=== PATIENT | female | born 1995 | race Caucasian/White ===

== ENCOUNTER 2023-12-02 15:19 | Emergency (ER) | payer OTHER, SELFPAY ==
[2023-12-02 15:20] VITALS: BP 173/93; PULSE 101; RESP 16; TEMP 36.1; O2SAT 97; BMI 45.4
--- NOTE | 2023-12-02 15:39 | EDS_ITS ---
HPI HPI - GI History of Present Illness Chief Complaint: GI Bleed Informant: patient Narrative Narrative: 27-year-old female presenting to the emergency room with a chief complaint of bright red blood per rectum. Patient states a few hours ago she had a bowel movement as she wiped she noted there was some bright red blood on the tissue. This does not alarm her as that over the past couple years since giving to her child this is happening intermittently. Just prior to coming to the emergency department the patient developed a sharp stabbing rectal pain and noted that she was bleeding again. This is what prompted her to come to emergency. She notes that she is started hydroxyzine within the past 2 weeks but no other medication changes. She has had a prior appendectomy. [facility] Medical History (Updated 12/02/23 @ 15:[address] Chilo Meléndez DO) Anxiety Bipolar disorder Home Medications ?Medication ?Instructions ?Recorded ?Last Taken ?Type hydroxyzine HCl 25 mg tablet 25 mg PO BID 12/02/23 Unknown History lamotrigine 25 mg tablet 50 mg PO DAILY 12/02/23 Unknown History sertraline 100 mg tablet 150 mg PO Q24H 12/02/23 Unknown History Allergy/AdvReac Type Severity Reaction Status Date / Time cinnamon Allergy Mild Anaphylaxis Verified 12/02/23 15:22 nickel Allergy Mild Rash Verified 12/02/23 15:22 acetaminophen (From [place]) AdvReac Mild Vomiting Verified 12/02/23 15:22 hydrocodone (From [place]) AdvReac Mild Vomiting Verified 12/02/23 15:22 Social History Smoking Status: Never smoker ROS ROS ED Constitutional Constitutional ED: Denies chills, fever(s) or weight loss Eyes Eyes: Denies change in vision or diplopia ENT ENT ED: Denies ear pain, rhinorrhea or sore throat Cardiovascular Cardiovascular: Denies chest pain, orthopnea, palpitations or racing heartbeat Respiratory/Chest Respiratory/Chest: Denies cough, dyspnea or orthopnea Gastrointestinal Gastrointestinal: Reports other Details: Acute rectal pain bright red blood per rectum ; Denies abdominal pain, constipation, diarrhea, melena, nausea or vomiting Genitourinary Genitourinary ED: Denies dysuria, hematuria or urinary frequency Musculoskeletal Musculoskeletal: Denies arthralgias or myalgias Integumentary Denies abscess or rash Neurologic Neurologic: Denies headache(s) or weakness Psychiatric Psychiatric: Denies anxiety, depression, suicidal ideation or suicidal thoughts Endocrine Endocrinology: Denies polydipsia, polyphagia or polyuria Allergic/Immunologic Allergic/Immunologic ED: Denies mouth swelling, tongue swelling or urticaria EXAM Physical Exam Const Vital Signs: 12/02/23 15:20 Temperature 97 F L Temperature Source Temporal Pulse Rate 101 H Respiratory Rate 16 Blood Pressure 173/93 H Blood Pressure Mean 119 Pulse Ox 97 Oxygen Delivery Method Room Air Positive well nourished, well developed and obese General Appearance ED: well developed and NAD Nutritional Appearance: obese HEENT Reports normocephalic, head/scalp atraumatic and moist mucous membranes Eyes PERRL and EOMs intact bilaterally Neck no lymphadenopathy, supple and no JVD Resp normal respiratory effort and clear to auscultation bilaterally Cardio regular rate, regular rhythm and no murmurs GI normal to inspection, nondistended, normoactive bowel sounds and non-tender Palpation: soft Narrative: Rectal exam reveals a minimally distended vein in about the 7 o'clock position of the anus. Just to the side of this vein is in. Anal fissure with mild active bleeding. I do not appreciate any abscesses. No thrombosed hemorrhoids. No significant anal tags. Back/Spine no CVA tenderness and normal ROM Extremity normal to inspection General Extremety ED: Negative for edema General Extremity: Negative for edema Neuro oriented x3 and CN's II-XII intact bilaterally Sensorium / Orientation: alert Motor Exam: strength 5/5 throughout Psych mental status grossly normal Mood & Affect: Negative for depressed or tearful Skin no rashes or lesions noted and no wounds MDM MDM MDM Narrative Medical decision making narrative: Differential diagnosis includes but not limited to internal/external hemorrhoids anal fissure abscess colitis diverticulitis diverticular disease Based on the physical exam patient appears to have an anal fissure. Home care and pathophysiology discussed with the patient. She notes understanding the plan will follow-up as needed return if worsening or concerns History & Record Review Discussion w/independent historian: Patient Discharge Plan Triage Chief Complaint: GI Bleed ED Provider: Chilo Meléndez Dx/Rx/DC Orders Prescriptions: No Action lamotrigine 25 mg tablet 50 mg PO DAILY Rx Instructions: 50mg in AM; 25mg in evening sertraline 100 mg tablet 150 mg PO Q24H hydroxyzine HCl 25 mg tablet 25 mg PO BID Print Language: Pashto
[2023-12-02 15:52] VITALS: BP 140/79; PULSE 88; RESP 18; TEMP 36.4; O2SAT 99
== END 2023-12-02 16:08 | disposition home or self-care (01) ==
LOC: ED 16:07
PROVIDERS: Emergency Provider Emergency Medicine; Referring Provider Emergency Medicine; Visit Provider Emergency Medicine
DX: K60.0 Acute anal fissure (principal)
CPT/HCPCS: 99282

== ENCOUNTER → 2024-02-07 | Outpatient (CLI) | payer OTHER, SELFPAY ==
--- NOTE | 2024-02-07 09:27 | RAD_ITS ---
STUDY: X-RAY CHEST REASON FOR EXAM: Female, 28 years old. Cough TECHNIQUE: PA and lateral views of the chest. COMPARISON: None. FINDINGS: Scattered calcified granulomas. There is no demonstrated pleural abnormality. Normal size heart. Normal mediastinum and celine. Normal visualized pulmonary arteries. Normal visualized aortic arch and descending thoracic aorta. Normal visualized thoracic spine. Normal visualized ribs, clavicles, and shoulders. There is no demonstrated abnormality of the visualized soft tissue structures of the upper abdomen. RAD/Chest PA and Lateral IMPRESSION: Normal x-ray examination of the chest. Electronically Signed: Adriano Hassan MD at 10:12 [facility] ,
== END | disposition home or self-care (01) ==
PROVIDERS: Referring Provider Physician Assistant; Visit Provider Physician Assistant
DX: R05.9 Cough, unspecified (principal)
CPT/HCPCS: 71046

== ENCOUNTER → 2024-09-13 | Outpatient (CLI) | payer OTHER, SELFPAY ==
--- OUTSIDE RECORDS SUMMARY | 2024-09-13 07:13 | XMS RPT_ITS | CCD ---
Author Organization [facility] Team Providers Care Sole Layer Name Role Phone LACI MEANS, DR SANCHO Worley Consulting Unavail able LACI MEANS, DR~[phone] SANCHO Worley Primary Care Unavailable WOOD DO~[id number], WOOD JESUS A Admitting Unavailable WOOD DO~[id number], WOOD JESUS A Attending Unavailable LACI MENAS, DR SANCHO Worley Consulting Unavail able KENNEDY MEANS, GEMMA Costa Consulting Unavailable KENNEDY MEANS, GEMMA Costa Consulting Unavailable WOOD DO, JESUS A Consulting Unavailable WOOD DO, JESUS A Consulting Unavailable VIRGINIE MEANS DR~[phone] DAGOBERTO Costa Admitting Unavailable VIRGINIE MEANS, ~[phone] DAGOBERTO Costa Attending Unavailable LACI MEANS, DR SANCHO Worley Consulting Unavail himanshu AGUERO MD, DR~[phone] SANCHO Worley Primary Care Unavailable LACI MEANS, DR SANCHO Worley Consulting Unavail able LACI MEANS, DR~[phone] SANCHO Worley Primary Care Unavailable TAMIKA DO~[id number], TAMIKA SOTERO N Admitting Unavailable TAMIKA DO~[id number], TAMIKA SOTERO N Attending Unavailable NONE, NONE Consulting Unavailable DECLINED, Consulting Unavailable TAMIKA DO, SOTERO N Consulting Unavailable TAMIKA DO, SOTERO N Consulting Unavailable LACI MEANS, DR~[phone] SANCHO Worley Primary Care Unavailable TAMIKA DO~[id number], TAMIKA SOTERO N Admitting Unavailable TAMIKA DO~[id number], TAMIKA SOTERO N Attending Unavailable NONE, NONE Consulting Unavailable DECLINED, Consulting Unavailable TAMIKA DO, SOTERO N Consulting Unavailable TAMIKA DO, SOTERO N Consulting Unavailable LACI MEANS, DR SANCHO Worley Admitting Unavail himanshu AGUERO MD, DR SANCHO Worley Primary Care Unavail himanshu AGUERO MD, DR SANCHO Worley Consulting Unavail himanshu AGUERO MD, DR SANCHO Worley Attending Unavail able LACI MEANS, DR SANCHO Worley Consulting Unavail able No, Physician Primary Care Provider Unavailabl e NO, PHYSICIAN Primary Care Unavailable DELMY DOE Attending Unavailable Care Physician, No Primary Primary Care Unava ilable Adrian Woods Attending Unavailable Care Physician, No Primary Primary Care Unava ilable Care Physician, No Primary Referring Unava ilable Narendra Judge Attending Unavailable Care Physician, No Primary Primary Care Unava ilable Care Physician, No Primary Referring Unava ilable Narendra Judge Attending Unavailable Narendra Judge Referring Unavailable Care Physician, No Primary Primary Care Unava ilable Chilo Meléndez Attending Unavailable Chilo Meléndez Referring Unavailable Care Physician, No Primary Primary Care Unava ilable Care Physician, No Primary Primary Care Unava ilable Provider, Ed Physician Attending Unavailab Yahaira Aviles Attending Unavailable Care Physician, No Primary Referring Unava ilable Care Physician, No Primary Primary Care Unava ilable Care Physician, No Primary Primary Care Unava ilable Care Physician, No Primary Primary Care Provider Unavailable Care Physician, No Primary Referring Provider Un available Dulce MEANS, Dr. Syed Attending Provider Allergies Allergy Classification Reported Allergen(s) Allergy Type Date of Onset Reaction(s) Facility (1 source) Acetaminophen / HYDROcodone Drug Allergy [facility] Repository (4 sources) Cinnamon Preparation; Translations: [Cinnamon] Drug Allergy 02-07-2024 Anaphylaxis [facility] Repository (1 source) Leucine Drug Allergy [facility] Repository (2 sources) Acetaminophen Drug Allergy 02-07-2024 Vomiting [facility] (2 sources) HYDROcodone Drug Allergy 02-07-2024 Vomiting [facility] (2 sources) nickel Drug Allergy 02-07-2024 Rash [facility] (1 source) Acetaminophen Drug Allergy 02-07-2024 [facility] Repository (1 source) HYDROcodone Drug Allergy 02-07-2024 [facility] Repository (1 source) nickel Drug Allergy 02-07-2024 [facility] Repository Medications Current Medications Medication Drug Class(es) Dates Sig (Normalized) Sig (Original) amoxicillin 875 mg / clavulanate 125 mg oral tablet (6 sources) Penicillin-class Antibacterial Start: 02-07-2024 amoxicillin-clavu lanate (AUGMENTIN) 875-125 mg per tablet 02/07/2024 Active Start: 02-07-2024 End: 09-08-2024 Amoxicillin-Pot Clavulanate 875-125 mg tablet Discontinued 1 {tbl} PO TWICE A DAY February 07, 2024 1:00am September 08, 2024 1:04pm ascorbic acid 1000 mg oral tablet (4 sources) Vitamin C take 1 tablet by mouth once daily ascorbic acid, vitamin C, (VITAMIN C) 1000 MG tablet Take 1 (one) tablet (1,000 mg total) by mouth daily . Active azithromycin 250 mg oral tablet (7 sources) Macrolide Antimicrobial Start: 02-16-20 End: 02-16-20 azithromycin (Zithromax Z-Finn) 250 MG tablet Indications: Bronchitis Take as directed: 2 pills first day; then one pill daily for 4 days. . 6 tablet 02/16/2024 Active breath-actuated 120 actuat beclomethasone dipropionate 0.04 mg/actuat metered dose inhaler (4 sources) Corticosteroid Start: 01-31-20 Qvar RediHaler 40 mcg/actuation HFAB 01/31/2024 Active hydrOXYzine hydrochloride 25 mg oral tablet (7 sources) Antihistamine Start: 11-11-19 End: 09-13-19 take 1 tablet by mouth twice daily as needed Hydroxyzine Hcl 25 mg tablet Active 25 mg PO TWICE A DAY as needed September 12, 2024 8:27am lamoTRIgine 25 mg oral tablet (6 sources) Mood Stabilizer, Anti-epileptic Agent Start: 12-02-19 take 2 tablets by mouth once daily in the morning Lamotrigine 25 mg tablet Active 50 mg PO DAILY December 02, 2023 12:00am 50mg in AM; 25mg in evening Start: 11-11-2023 take 1 tablet by rachna th twice daily lamoTRIgine (LAMICTAL) 25 MG tablet Take 1 (one) tablet (25 mg total) by mouth 2 (two) times a day . 11/11/2023 Active levonorgestrel 0.682514 mg/hr intrauterine system (4 sources) Progestin, Progestin-containing Intrauterine Device levonorgestreL (SKYL A) IUD iud by Intrauterine route . Active sertraline 100 mg oral tablet (6 sources) Serotonin Reuptake Inhibitor Start: Sertraline 100 mg tablet Active 150 mg PO Q24H December 02, 2023 12:00am Start: 11-11-2023 sertraline (ZO LOFT) 100 MG tablet 11/11/2023 Active Completed/Discontinued Medications Medication Drug Class(es) Dates Sig (Normalized) Sig (Original) predniSONE 10 mg oral tablet (14 sources) Start: 02-16-2024 End: 02-16-2024 predniSONE (DELTASONE) tablet 40 mg Start: 02-16-2024 End: 02-16-2024 take 40 mg by mouth once 40 mg, Oral, Once, On Wed at 2115, For 1 dose Start: 02-16-2024 End: 02-16-2024 predniSONE (DELTASONE) table t 40 mg Start: 02-16-2024 End: 02-16-2024 predniSONE (DELTASONE) table t 40 mg Start: 02-16-2024 End: 02-16-2024 take 40 mg by mouth once 40 mg, Oral, Once, On Wed at 2115, For 1 dose Start: 02-16-2024 End: 02-16-2024 take 40 mg by mouth once 40 mg, Oral, Once, On Wed at 2115, For 1 dose Start: 02-16-2024 End: 02-21-2024 take 2 tablets by mouth once daily predniSONE (DELTASONE) 20 MG tablet Indications: Bronchitis Take 2 (two) tablets (40 mg total) by mouth daily for 5 days . 10 tablet 02/16/2024 02/21/2024 Active Start: 01-31-2024 predniSONE (DE LTASONE) 20 MG tablet 01/31/2024 Active Problems Active Problems Problem Classification Problem Date Documented Da te Episodic/Chronic Anal and rectal conditions (2 sources) Acute anal fissure; Translations: [Acute anal fissure] 12-10-2023 Episodic Asthma (2 sources) Asthma; Translations: [Unspecified asthma, uncomplicated] 02-07-2024 Chronic Chronic obstructive pulmonary disease and bronchiectasis (6 sources) Bronchitis; Translations: [Bronchitis, not specified as acute or chronic] Onset: 02-16-2024 Episodic Gastrointestinal hemorrhage (3 sources) Gastrointestinal hemorrhage; Translations: [Hemorrhage of anus and rectum] Onset: 4 12-10-2023 Episodic Other endocrine disorders (2 sources) Polycystic ovary syndrome; Translations: [Polycystic ovarian syndrome] 09-12-2024 Chronic Other female genital disorders (2 sources) Abnormal uterine bleeding; Translations: [Abnormal uterine and vaginal bleeding, unspecified] 09-12-2024 Chronic Other nutritional; endocrine; and metabolic disorders (2 sources) Obesity; Translations: [Other obesity] 09-12-2024 Chronic Other upper respiratory infections (6 sources) Nasopharyngitis; Translations: [Acute nasopharyngitis [common cold]] Onset: 4 02-16-2024 Episodic Otitis media and related conditions (6 sources) Dysfunction of eustachian tube; Translations: [Unspecified Eustachian tube disorder, unspecified ear] Onset: 4 02-16-2024 Episodic Thyroid disorders (5 sources) Nontoxic single thyroid nodule; Translations: [Goiter] Onset: 4 Chronic Unclassified (1 source) Cough, unspecified; Translations: [Cough, unspecified] Onset: 4 Past or Other Problems Problem Classification Problem Date Documented Da te Episodic/Chronic Administrative/social admission (3 sources) Encounter for examination for insurance purposes; Translations: [ENCOUNTER EXAM INSURANCE PURPOSES] Onset: 01-16-2023 Episodic E Codes: Machinery (1 source) Contact with other specified machinery, initial encounter; Translations: [CONTACT OTH SPEC MACHINERY INITIAL] Onset: 05-14-2023 Episodic E Codes: Place of occurrence (1 source) Other place in hospital as the place of occurrence of the external cause; Translations: [OTH PLACE HOSP PLACE OCCUR EXT CAUS] Onset: 07-14-2023 Episodic E Codes: Struck by; against (1 source) Striking against other stationary object, initial encounter; Translations: [STRIK AGNST OT STATIONARY OBJ INIT] Onset: 07-14-2023 Episodic E Codes: Unspecified (1 source) Civilian activity done for income or pay; Translations: [CIVILIAN ACTV DONE FOR INCOME/PAY] Onset: 07-14-2023 Episodic Intracranial injury (3 sources) Concussion without loss of consciousness, initial encounter; Translations: [CONCUSSION WITHOUT LOC INITIAL ENC] Onset: 07-13-2023 Episodic Other injuries and conditions due to external causes (1 source) Unspecified injury of head, initial encounter; Translations: [UNSPECIFIED INJURY HEAD INITIAL ENC] Onset: 07-14-2023 Episodic Sprains and strains (3 sources) Sprain of unspecified ligament of right ankle, initial encounter; Translations: [SPRAIN UNS LIGAMENT RT ANKLE INIT] Onset: 05-13-2023 Episodic Superficial injury; contusion (1 source) Contusion of right foot, initial encounter; Translations: [CONTUSION RIGHT FOOT INITIAL ENC] Onset: 05-14-2023 Episodic Results Test Name Value Interpretation Reference Range Facil ity Office Visit Reporton 2023 Office Visit Report [facility] [address] [place] [address] OFFICE VISIT Date of Service: 02/07/24 MR#: [id number] Acct: [id number] Patient: GUS WRIGHT Rep #: [id number] : 1995 Provider: ENEDELIA Perez Age/Sex: 28/F Location: [facility] Status: Signed Employer Purchased Covid Test Note: Patient here today for Covid Testing, requested by their Employer. Assessment and Plan Assessment and Plan Orders: Orders POC Cepheid Covid, ЕленаAB, RSV 02/07/24 02/24/24 0642 Date Adrian Amayaign Signature: Date (if applicable) CC: Normal [facility] HIV - WCHon 02-21-2024 HIV Non-Reactive Normal Nonreactive [facility] Comment on above: Order Comment: Has p t arrived? Y Reason for Exam: ED Expose Person Protocol Performed By: #### L 3890.6300, L3890.6100, L3890.6005, L3890.6200 #### [facility] [address] [place], [place], [id number] Hepatitis B Surface Antibody on 02-21-2024 HEP B Surf Ab Reactive Normal [facility] Comment on above: Order Comment: Has p t arrived? Y Reason for Exam: ED Expose Person Protocol Result Comment: Non Reactive: Inconsistent with immunity less than <10 mIU/mL Reactive: Consistent with immunity greater than or equal to 10 mIU/mL Performed By: #### L 3890.6300, L3890.6100, L3890.6005, L3890.6200 #### [facility] [address] [place], [place], [id number] Hepatitis B Surface Antigeno n 02-21-2024 HEP B Surf Ag Non-Reactive Normal Nonreactive [facility] Comment on above: Order Comment: Has p t arrived? Y Reason for Exam: ED Expose Person Protocol Performed By: #### L 3890.6300, L3890.6100, L3890.6005, L3890.6200 #### [facility] [address] [place], [address] Hepatitis C Antibodyon 02-20 Hepatitis C AB Non-Reactive Normal Nonreactive [facility] Comment on above: Order Comment: Has p t arrived? Y Reason for Exam: ED Expose Person Protocol Result Comment: Non Reactive: < 0.8 Equivocal: >/= 0.8 to < 1.0 Reactive: >/= 1.0 The CDC requires that a reactive/equivocal HCV antibody result be sent out for confirmation. HCV Quant by PCR testing. Performed By: #### L 3890.6300, L3890.6100, L3890.6005, L3890.6200 #### [facility] [address] [facility] [place], [place], [phone] ([phone] Chest PA and Lateralon 02-06 Chest PA and Lateral [facility] [address] [place] [address] Chest PA and Lateral MR#: [id number] Acct: [id number] Name: GUS WRIGHT #: [id number] : 1995 F 28 From: Adriano jauregui MD PCP: Care Physician,No Primary Status: REG CLI Study: Chest PA and Lateral Date of Exam: 02/07/24 Exam# [id number] Ordering Dr: Narendra Crouch [id number] STUDY: X-RAY CHEST REASON FOR EXAM: Female, 28 years old. Cough TECHNIQUE: PA and lateral views of the chest. COMPARISON: None. FINDINGS: Scattered calcified granulomas. There is no demonstrated pleural abnormality. Normal size heart. Normal mediastinum and celine. Normal visualized pulmonary arteries. Normal visualized aortic arch and descending thoracic aorta. Normal visualized thoracic spine. Normal visualized ribs, clavicles, and shoulders. There is no demonstrated abnormality of the visualized soft tissue structures of the upper abdomen. RAD/Chest PA and Lateral IMPRESSION: Normal x-ray examination of the chest. Electronically Signed: Adriano Hassan MD at 10:12 EST Reading Location ID and State: [facility] / [place] , Service support , CC: No Primary Care Physician; ENEDELIA Gratn Claim Clerk: Signed [facility] Office Visit Reporton 2023 Office Visit Report [facility] [address] [place] [address] OFFICE VISIT Date of Service: 02/07/24 MR#: [id number] Acct: [id number] Patient: GUS WRIGHT Rep #: [id number] : 1995 Provider: ENEDELIA Perez Age/Sex: 28/F Location: [facility] Status: Signed Employer Purchased Covid Test Note: Patient here today for Covid Testing, requested by their Employer. Assessment and Plan Assessment and Plan Orders: Orders POC Cepheid Covid, FluAB, RSV Today 02/10/24 0731 Date Adrian Campbell Signature: Date (if applicable) CC: Normal [facility] Urgent Care Visit Reporton 1 04-08-2023 Urgent Care Visit Report [facility] [address], [address] [place] [address] OFFICE VISIT Date of Service: 02/07/24 MR#: [id number] Acct: [id number] Name: GUS WRIGHT Rep #: [id number] : 1995 Provider: ENEDELIA Grant Age/Sex: 28/F Location: [facility] Status: Signed Intake Vital Signs 12/02/23 15:20 Height 5 ft 2 in Intake Visit Reasons: CHEST KASSI/SINUS COMPLAIN/ST/R EAR PAIN/COUGH Chief Complaint: chest congest, ST, cough, ear pain, yellow mucus Allergies cinnamon Allergy (Mild, Verified 02/07/24 09:30) Anaphylaxis nickel Allergy (Mild, Verified 02/07/24 09:30) Rash acetaminophen (From [place]) Adverse Reaction (Mild, Verified 02/07/24 09:30) Vomiting hydrocodone (From [place]) Adverse Reaction (Mild, Verified 02/07/24 09:30) Vomiting [facility] Medical History (Updated 02/07/24 @ 09:32 by Mehreen Chavez) Asthma Anxiety Bipolar disorder Surgical History (Updated 02/07/24 @ 09:32 by Mehreen Chavez) History of appendectomy Family History (Updated 02/07/24 @ 09:32 by Mehreen Chavez) Other Atrial fibrillation CVA (cerebral vascular accident) Hypertension Social History (Updated 02/07/24 @ 09:32 by Mehreen Chavez) Smoking Status: Never smoker alcohol intake: never substance use type: does not use HPI HPI Chief Complaint: chest congest, ST, cough, ear pain, yellow mucus Details: GUS WRGIHT is a 28 F who presents to the office today for initial evaluation at the [facility] for approximately 3-week history of sinus congestion, irritated/sore throat with purulent yellow postnasal drip, cough, and nausea. No complaints of chest pressure or shortness of breath or dyspnea on exertion. No complaints of fever, chills, sweats. No [id number] products taken to assist. Requesting POC Cepheid screening as well as chest x-ray as she is concerned for pneumonia. Non-smoker. No other associated symptoms and no other alleviating/aggravati ng factors. ROS Const Constitutional: No other (As above) Exam Const General: cooperative, healthy appearing and no acute distress Orientation: alert, awake and oriented x3 HENMT Head: normal to inspection Ears: hearing grossly normal bilaterally, external ears normal, TM's normal bilaterally and EAC's normal Nose: external nose normal, nares normal, septum normal and no nasal discharge Face and sinus: normal facial exam, sinuses nontender bilateral maxillary sinuses full to palpation, and face symmetric Mouth: oral mucosae normal, lip normal, tongue normal and oropharynx normal Throat: posterior oropharynx normal, tonsils normal, uvula midline and purulent postnasal drainage Eyes General: appearance normal, both eyes and all related structures Neck Neck: normal visual inspection, full ROM, no lymphadenopathy, no meningeal signs and supple Neck mass: No Thyroid: thyroid normal Lymphatic: no lymphadenopathy noted Chest Chest palpation inspection: normal inspection of the chest Resp Effort Inspection: normal respiratory effort, able to speak in complete sentences and cough Quality of cough: wet (nonproductive in office today) Auscultation: Bilateral: Clear to Auscultation Cardio Palpation: normal PMI Rate: tachycardic Rhythm: regular rhythm Heart Sounds: S1 normal, S2 normal, no gallops, no murmurs and no rubs Pulses: radial pulses present Skin General: no rashes or lesions noted Neuro General: patient alert, patient awake and patient oriented x3 Cognition: normal cognition Speech: speech normal Psych Appearance: grossly normal Mental Status: mental status grossly normal Mood: congruent mood Affect: normal affect Speech and Movement: speech and movement normal Attitude: cooperative Diagnoses Contact with or exposure to other viral diseases Z20.828 Acute sinusitis, unspecified J01.90 Assessment and Plan Assessment and Plan (1) Contact with or exposure to other viral diseases: Status: Acute (2) Acute sinusitis, unspecified: Status: Acute Plan: PA and lateral chest x-ray reviewed with patient in office today, with radiologist interpretation pending at time patient discharge. See POC results. Augmentin as prescribed today. Supportive measures as instructed today. Follow-up with PCP in 3-5 days should symptoms not improve, ED sooner should symptoms worsen or any other concerns develop. Pt states acknowledging understanding all the above. Results POC CEPH COV,FluAB,RSV PCR CEPHEID COVID PCR Not DETECTED Last Edit by ENEDELIA Chisholm on 02/07/24 10:00 CEPHEID FLU AB PCR NOT DETECTED FLU A B Last Edit by ENEDELIA Chisholm on 02/07/24 10:00 CEPHEID RSV PCR NOT DETECTED Last Edit by ENEDELIA Chisholm on 02/07/24 10:00 Coding Level of Care Code Off vis,new,level 4 Assessment and Plan Assessment and Plan (more content not included)... [facility] Emergency Department Summary on 12-02-2023 Emergency Department Summary [facility] Medical Records Department [address] [place] [address] Emergency Department Summary 12/02/23 MR#: [id number] Acct: [id number] Name: GUS WRIGHT Jani Rep #: [id number] : 1995 27 From: Chilo Meléndez DO PCP: Care Physician,No Primary Status:DEP ER Location: ED HPI HPI - GI History of Present Illness Chief Complaint: GI Bleed Informant: patient Narrative Narrative: 27-year-old female presenting to the emergency room with a chief complaint of bright red blood per rectum. Patient states a few hours ago she had a bowel movement as she wiped she noted there was some bright red blood on the tissue. This does not alarm her as that over the past couple years since giving to her child this is happening intermittently. Just prior to coming to the emergency department the patient developed a sharp stabbing rectal pain and noted that she was bleeding again. This is what prompted her to come to emergency. She notes that she is started hydroxyzine within the past 2 weeks but no other medication changes. She has had a prior appendectomy. [facility] Medical History (Updated 12/02/23 @ 15:[address] Chilo Meléndez DO) Anxiety Bipolar disorder Home Medications ???Medication ???Instructions ???Recorded ???Last Taken ???Type hydroxyzine HCl 25 mg tablet 25 mg PO BID 12/02/23 Unknown History lamotrigine 25 mg tablet 50 mg PO DAILY 12/02/23 Unknown History sertraline 100 mg tablet 150 mg PO Q24H 12/02/23 Unknown History Allergy/AdvReac Type Severity Reaction Status Date / Time cinnamon Allergy Mild Anaphylaxis Verified 12/02/23 15:22 nickel Allergy Mild Rash Verified 12/02/23 15:22 acetaminophen (From [place]) AdvReac Mild Vomiting Verified 12/02/23 15:22 hydrocodone (From [place]) AdvReac Mild Vomiting Verified 12/02/23 15:22 Social History Smoking Status: Never smoker ROS ROS ED Constitutional Constitutional ED: Denies chills, fever(s) or weight loss Eyes Eyes: Denies change in vision or diplopia ENT ENT ED: Denies ear pain, rhinorrhea or sore throat Cardiovascular Cardiovascular: Denies chest pain, orthopnea, palpitations or racing heartbeat Respiratory/Chest Respiratory/Chest: Denies cough, dyspnea or orthopnea Gastrointestinal Gastrointestinal: Reports other Details: Acute rectal pain bright red blood per rectum ; Denies abdominal pain, constipation, diarrhea, melena, nausea or vomiting Genitourinary Genitourinary ED: Denies dysuria, hematuria or urinary frequency Musculoskeletal Musculoskeletal: Denies arthralgias or myalgias Integumentary Denies abscess or rash Neurologic Neurologic: Denies headache(s) or weakness Psychiatric Psychiatric: Denies anxiety, depression, suicidal ideation or suicidal thoughts Endocrine Endocrinology: Denies polydipsia, polyphagia or polyuria Allergic/Immunologic Allergic/Immunologic ED: Denies mouth swelling, tongue swelling or urticaria EXAM Physical Exam Const Vital Signs: 12/02/23 15:20 Temperature 97 F L Temperature Source Temporal Pulse Rate 101 H Respiratory Rate 16 Blood Pressure 173/93 H Blood Pressure Mean 119 Pulse Ox 97 Oxygen Delivery Method Room Air Positive well nourished, well developed and obese General Appearance ED: well developed and NAD Nutritional Appearance: obese HEENT Reports normocephalic, head/scalp atraumatic and moist mucous membranes Eyes PERRL and EOMs intact bilaterally Neck no lymphadenopathy, supple and no JVD Resp normal respiratory effort and clear to auscultation bilaterally Cardio regular rate, regular rhythm and no murmurs GI normal to inspection, nondistended, normoactive bowel sounds and non-tender Palpation: soft Narrative: Rectal exam reveals a minimally distended vein in about the 7 o'clock position of the anus. Just to the side of this vein is in. Anal fissure with mild active bleeding. I do not appreciate any abscesses. No thrombosed hemorrhoids. No significant anal tags. Back/Spine no CVA tenderness and normal ROM Extremity normal to inspection General Extremety ED: Negative for edema General Extremity: Negative for edema Neuro oriented x3 and CN's II-XII intact bilaterally Sensorium / Orientation: alert Motor Exam: strength 5/5 throughout Psych mental status grossly normal Mood Affect: Negative for depressed or tearful Skin no rashes or lesions noted and no wounds MDM MDM MDM Narrative Medical decision making narrative: Differential diagnosis includes but not limited to internal/external hemorrhoids anal fissure abscess colitis diverticulitis diverticular disease Based on the physical exam patient appears to have an anal fissure. Home care and pathophysiology discussed with the p (more content not included)... [facility] [facility] THIN PREP with HPV REFLEX C U or SILon 06-29-2023 . . Normal [facility] Comment on above: Result Comment: Perf ormed at: [facility] Performed By: #### T PHRAS #### Performed for [facility] [address] [address] . Comment Normal [facility] Comment on above: Result Comment: The HPV DNA reflex criteria were not met with this specimen result therefore, no HPV testing was performed. . Performed at: [facility] Performed By: #### T PHRAS #### Performed for [place] [address] [place], [place] [address] DIAGNOSIS: Comment Normal [facility] Comment on above: Result Comment: NEGA TIVE FOR INTRAEPITHELIAL LESION OR MALIGNANCY. Performed at: [facility] Performed By: #### T PHRAS #### Performed for [place] [address] [address] [address] Note: Comment Normal [facility] Comment on above: Result Comment: The Pap smear is a screening test designed to aid in the detection of premalignant and malignant conditions of the uterine cervix. It is not a diagnostic procedure and should not be used as the sole means of detecting cervical cancer. Both false-positive and false-negative reports do occur. . Performed at: [facility] Performed By: #### T PHRAS #### Performed for [place] [address] [address] Performed by: Comment Normal [facility] Comment on above: Result Comment: Letha Yoder Software Test And Validation Engineer (ASCP) Performed at: [facility] Performed By: #### T PHRAS #### Performed for [address] [address] Specimen adequacy: Comment Normal [facility] Comment on above: Result Comment: Sati sfactory for evaluation. Endocervical and/or squamous metaplastic cells (endocervical component) are present. Performed at: [facility] Performed By: #### T PHRAS #### Performed for [address] [address] Test Methodology: Comment Normal [facility] Comment on above: Result Comment: This liquid based ThinPrep(R) pap test was screened with the use of an image guided system. Performed at: [facility] Performed By: #### T PHRAS #### Performed for [place] [address] [address] [address] THYROID Abs PANELon 06-25-19 24 Thyroglobulin Antibody <1.0 Normal 0.0-0.9 [facility] Comment on above: Result Comment: Thyr oglobulin Antibody measured by [employer] [place] Methodology . It should be noted that the presence of thyroglobulin antibodies may not be pathogenic nor diagnostic, especially at very low levels. The assay residential framing carpenter has found that four percent of individuals without evidence of thyroid disease or autoimmunity will have positive TgAb levels up to 4 IU/mL. Performed By: #### T HYAB #### Performed for [facility] [address] [place] [address] Thyroid Peroxidase (TPO) Ab <9 Normal 0-34 [facility] Comment on above: Performed By: #### T HYAB #### Performed for [facility] [address] [place] [address] FREE T3on 06-24-2023 Free T3 [Mass/Vol] 3.48 pg/mL Normal 2.18-3.98 [facility] Comment on above: Performed By: #### 3 051-0, 3024-7, 13892-3 #### [facility] [address] [place] [address] [employer] [facility] [id number] FREE T4on 06-24-2023 Free T4 [Mass/Vol] 0.94 ng/dL Normal 0.76-1.46 [facility] Comment on above: Performed By: #### 3 051-0, 3024-7, 74569-2 #### [facility] [address] [place] [address] [employer] [facility] [id number] TSH DL <= 0.05 mIU/L Qnon TSH Qn 2.340 uIU/mL Normal 0.358-3.[address] [facility] Comment on above: Performed By: #### 3 051-0, 3024-7, 57124-7 #### [place] [address] [place] [address] [employer] [facility] [id number] ANKLE RIGHT COMPLETEon 05-13 ANKLE RIGHT COMPLETE EXAM: ANKLE RIGHT COMPLETE HISTORY: UNSPECIFIED INJURY OF RIGHT ANKLE, SEQUELA COMPARISON: None. TECHNIQUE: AP, oblique, lateral views FINDINGS: There is no acute fracture or joint dislocation. The ankle mortise is intact on these nonstress views. The talar dome is unremarkable. No soft tissue abnormality is evident. IMPRESSION: No acute fracture or traumatic malalignment. Normal [facility] FOOT RIGHT COMPLETEon 2023 FOOT RIGHT COMPLETE EXAM: FOOT RIGHT COMPLETE HISTORY: Pain. COMPARISON: None. TECHNIQUE: AP, oblique, lateral views FINDINGS: There is no acute fracture or joint dislocation. The joint spaces are intact. Lisfranc alignment is preserved. No soft tissue abnormality is evident. IMPRESSION: No acute fracture. Normal [facility] FAIR A1Con 01-16-2023 Average glucose Estimated from glycated hemoglobin (Bld) [Mass/Vol] 105 mg/dL Normal 68-125 [facility] Comment on above: Performed By: #### H FA1C #### [facility] [address] [place] [address] [employer] - Teresa LOPEZ [id number] HA1C A1C INTERPRETATION %A1c (NGSP) Interpretation 3.8 - 6.4 Non-Diabetic Range 5.7 - 6.4 Prediabetic >6.5 Action Suggested The eAG (estimated average glucose) is an estimation of one?s average blood glucose level, calculated based on A1C test results, reported using the same units (mg/dL) seen on blood glucose meters. Normal [facility] Comment on above: Performed By: #### H FA1C #### [facility] [address] [place] [address] [employer] - Teresa LOPEZ [id number] HbA1c (Bld) [Mass fraction] 5.3 %A1C Normal 4.2-6.3 [facility] Comment on above: Performed By: #### H FA1C #### [facility] [address] [place] [address] [employer] - Teresa LOPEZ [id number] Lipid panel with direct LDLo n 01-16-2023 Cholesterol [Mass/Vol] 189 mg/dL Normal <=200 [facility] Comment on above: Performed By: #### 5 7698-3 #### [facility] [address] [place] [address] [employer] - Teresa LOPEZ [id number] Cholesterol in HDL [Mass/Vol] 62 mg/dL High 40-59 [facility] Comment on above: Performed By: #### 5 7698-3 #### [facility] [address] [place] [address] [employer] - Teresa AGEEIA [id number] Cholesterol in LDL [Mass/Vol] 105 mg/dL High 5-100 [facility] Comment on above: Performed By: #### 5 7698-3 #### [facility] [address] [facility] [place] [address] [employer] - Teresa LOPEZ [id number] Cholesterol in LDL/Cholesterol in HDL [Mass ratio] 1.7 {ratio} Normal [facility] Comment on above: Performed By: #### 5 7698-3 #### [facility] [address] [place] [address] [employer] Maker - Teresa LOPEZ [id number] Cholesterol.total/C holesterol in HDL [Mass ratio] 3.0 {ratio} Normal [facility] Comment on above: Performed By: #### 5 7698-3 #### [facility] [address] [address] [employer] - Teresa LOPEZ [id number] HCHOL CHOLESTEROL INTERPRETATION Desirable <200 Borderline High 200-239 High >240 Normal [facility] Comment on above: Performed By: #### 5 7698-3 #### [facility] [address] [place] [address] [employer] - Teresa LOPEZ [id number] HLDL LDL INTERPRETATION Desirable <100 Near Optimal 100-129 Borderline High 130-159 High 160-190 Very High >190 Normal [facility] Comment on above: Performed By: #### 5 7698-3 #### [facility] [address] [facility]. [place] [address] [employer] - Teresa LOPEZ [id number] HLIPID ATEROSCLEROSIS RISK FACTORS FOR LDL, HDL, AND CHOLESTEROL RISK FACTOR SEX LDL/HDL CHOL/HDL 1/2 Average M 1.00 3.43 F 1.47 3.27 Average M 3.55 4.97 F 3.22 4.44 2X Average M 6.25 9.55 F 5.03 7.05 3X Average M 7.99 23.39 F 6.14 11.04 Normal [facility] Comment on above: Performed By: #### 5 7698-3 #### [facility] [address] [place] [address] [employer] - Teresa LOPEZ [id number] HTRIG TRIGLYCERIDES INTERPRETATION Normal <150 Borderline High 150-199 High 200-499 Very High >500 Normal [facility] Comment on above: Performed By: #### 5 7698-3 #### [facility] [address] [place] [address] [employer] - Teresa LOPEZ [id number] Triglyceride [Mass/Vol] 106 mg/dL Normal <=150 [facility] Comment on above: Performed By: #### 5 7698-3 #### [facility] [address] [place], [place] [address] [address] [employer] Maker - Teresa LOPEZ [id number] Vital Signs Date Time Vital Sign Value Performing Clinician Facility 09-12-2024 08:24-0400 Body height 157.48 cm No Primary Care Physician [facility] 09-12-2024 08:24-0400 Body mass index (BMI) [Ratio] 44.9 kg/m2 No Primary Care Physician [facility] 09-12-2024 08:24-0400 Body weight 111.58 kg No Primary Care Physician [facility] 09-12-2024 08:24-0400 Diastolic blood pressure 82 mm[Hg] No Primary Care Physician [facility] 09-12-2024 08:24-0400 Systolic blood pressure 134 mm[Hg] No Primary Care Physician [facility] 02-16-2024 19:26-0500 Body height 157.5 cm Delmy Doe DO Work Phone: [facility] 02-16-2024 19:26-0500 Body mass index (BMI) [Ratio] 45.36 kg/m2 Delmy Doe DO Work Phone: [facility] 02-16-2024 19:26-0500 Body temperature 97.9 [degF] Delmy Doe DO Work Phone: [facility] 02-16-2024 19:26-0500 Body weight 112.49 kg Delmy Doe DO Work Phone: [facility] 02-16-2024 19:26-0500 Diastolic blood pressure 85 mm[Hg] Delmy Doe DO Work Phone: [facility] 02-16-2024 19:26-0500 Heart rate 92 /min Delmy Doe DO Work Phone: [facility] 02-16-2024 19:26-0500 Respiratory rate 18 /min Delmy Doe DO Work Phone: [facility] 02-16-2024 19:26-0500 SaO2% (BldA) [Mass fraction] 97 % Delmy Doe DO Work Phone: [facility] 02-16-2024 19:26-0500 Systolic blood pressure 131 mm[Hg] Delmy Doe DO Work Phone: [facility] Encounters Encounter Date Encounter Type Care Provider Facility Start: 09-12-2024 End: 09-12-[address] Yahaira Cardona [facility] Work Phone: Start: 09-12-2024 End: 09-12-[address] Yahaira Cardona MD [facility] Start: 09-12-2024 End: 09-12-2024 ambulatory Yahaira Cardona Facility[place] Start: 08-22-2024 End: 08-22-2024 ambulatory No Primary Care Physician Facility:[facility] Start: 04-14-2024 ambulatory No Primary Car e Physician Facility:[facility] Start: 02-21-2024 ambulatory No Primary Car e Physician Facility:[facility] Start: 02-16-2024 End: 02-16-2024 Office outpatient new 30 minutes Delmy Doe DO Work Phone: [facility] Comment on above: Bronchitis (Primary Dx); Acute nasopharyngitis; Dysfunction of Eustachian tube, unspecified laterality Start: 02-16-2024 End: 02-16-2024 ambulatory PHYSICIAN NO [facility] Start: 02-07-2024 End: 02-07-2024 ambulatory Narendra MCDANIELS Facility:[facility] Start: 02-07-2024 End: 02-07-2024 ambulatory Narendra MCDANIELS Facility:[facility] Start: 12-02-2023 End: 12-02-2023 Emergency department patient visit Chilo Meléndez Facility:[facility] Start: 07-13-2023 End: 07-13-[address]~[id number] DAGOBERTO RACHEL MD Facility:[facility] - [facility] Start: 06-25-2023 Encounter for gynecological examination (general) (routine) without abnormal findings TAMIKAAMALIA Sanchez TAMIKA DO~[id number] [facility] Start: 06-24-2023 End: 06-24-[address]~[id number] SANCHO AGUERO MD Facility:[facility] Start: 06-24-2023 End: 06-24-2023 Encounter for gynecological examination (general) (routine) without abnormal findings ~[id number] SANCHO AGUERO MD Facility:[facility] Start: 05-13-2023 End: 05-13-[address] SANCHO AGUERO MD Facility:[facility] Start: 01-16-2023 End: 01-16-[address] SANCHO AGUERO MD Facility:[facility] Plan of Treatment Date Care Activity Detail Author Start: 09-27-2031 Tetanus vaccination Tetanus: Every 1 0yrs [facility] Start: 12-08-2023 Screening for malign ant neoplasm of cervix [facility] Start: 11-21-2023 COVID-19 Vaccine ( season) COVID-19 Vaccine ( season) [facility] Start: 11-21-2023 Influenza vaccination [facility] Start: 2014 Screening for malign ant neoplasm of cervix Pap Smear [facility] Start: 12-08-2011 Hepatitis C screening Hepatitis C Sc [facility] Start: 2008 HIV screening HIV Screening [facility] Start: 2005 Depression screening using PHQ-9 (Patient Health Questionnaire 9) score Depression Screening/Follow-Up (PHQ-2/9) [facility] Start: 1996 History and physical examination, annual for health maintenance Wellness Visit [facility] Immunizations Immunization Date Immunization Notes Care Provider Fa cili 02-29-2024 influenza, seasonal, injectable, preservative free [facility] 01-05-2022 influenza virus vaccine, unspecified formulation Delmy Doe DO Work Phone: [facility] 09-26-2021 tetanus toxoid, redu adonay diphtheria toxoid, and acellular pertussis vaccine, adsorbed [facility] 01-22-2017 varicella virus vaccine [facility] 11-05-2016 varicella virus vaccine [facility] 03-19-1999 measles, mumps and rubella virus vaccine [facility] 03-19-1999 varicella virus vaccine [facility] 04-14-1995 measles, mumps and rubella virus vaccine [facility] 01-06-1995 hepatitis B vaccine, pediatric or pediatric/adolescent dosage [facility] 02-11-1994 hepatitis B vaccine, pediatric or pediatric/adolescent dosage [facility] 1993 hepatitis B vaccine, pediatric or pediatric/adolescent dosage [facility] Payers Date Payer Category Payer Unknown 2023 Self-pay 2023 Managed Care (privat e) or private health insurance (indemnity), not otherwise specified [employer] [id number] 2023 Private Health Insurance [id number] 1993 Unknown [id number]. 419 1993 Unknown [id number] 2.16.840.1.152150.3.579.2. 419 1993 Unknown [id number] 2.16.840.1.436027.3.579.2. 419 1993 Unknown [id number] 2.16.840.1.905660.3.579.2. 419 1993 Unknown [id number] 2.16.840.1.807541.3.579.2. 419 1993 Unknown [id number] 2.16.840.1.560552.3.579.2. 903 1959 Unknown [id number] 1959 Unknown [id number] Unknown [id number] Unknown [id number] 2.16.840.1.140255.3.579.2. 462 Unknown [id number] 2.16.840.1.710765.3.579.2. 462 Unknown [id number] 2.16.840.1.289388.3.579.2. 462 Unknown [id number] 2.16.840.1.505930.3.579.2. 462 Unknown [id number] 2.16.840.1.176199.3.579.2. 462 Unknown [id number] 2.16840.1.874990.3.579.2. 462 Unknown [id number] 2.16840.1.949079.3.579.2. 462 Unknown [id number] 2.16840.1.045470.3.579.2. 462 Social History Date Type Detail Facility Start: 02-16-2024 End: 09-12-2024 Tobacco smoking status NJIS Never smoked tobacco [facility] Start: 02-16-2024 Tobacco use and exposure Smokeless tobacco non-user [facility] Start: 02-16-2024 History of Social function [facility] Start: 02-16-2024 Tobacco use panel [facility] Start: 1995 Sex assigned at Not on file [facility] Start: 1995 Sex Assigned At Female W [facility] Clinical Notes 02-01-2023 to 09-12-2024 Addendum Note - Delmy Doe DO - 02/16/2024 8:26 PM ESTAddendum Note - Delmy Doe DO - 02/16/2024 8:26 PM ESTAddendum Note - Delmy Doe DO - 02/16/2024 8:26 PM EST Note Date & Type Note Facility 09-12-2024 Progress note [facility] 02-16-2024 Note Addended by: DELMY MARIE on: 02/16/2024 08:26 PM Modules accepted: Orders [facility] 02-16-2024 Note Addended by: DELMY MARIE on: 02/16/2024 08:26 PM Modules accepted: Orders [facility] 02-16-2024 Note Addended by: DELMY MARIE on: 02/16/2024 08:26 PM Modules accepted: Orders [facility] 02-16-2024 Miscellaneous Notes Addended by: DELMY DOE on: 02/16/2024 08:26 PM Modules accepted: Orders documented in this encounter [facility] 02-16-2024 Note PATIENT NAME: Gus Wright [facility]: [address] [facility] [id number] DATE OF VISIT: 02/16/2024 DATE OF : 1995 SS: [id number] PROVIDER: Delmy Doe DO SUBJECTIVE 28 y.o. female to the clinic for [...] 10 days ago in a clinic in [place]. Questionable early pneumonia noted on x-ray. Radiologist [...] 02/16/2024 .) azithromycin (Zithromax Z-Finn) 250 MG table (more content not included)... [facility]gent [facility] 02-16-2024 History of Presen t illness Narrative PATIENT NAME: Gus Wright [facility]: [address] [facility] [address] DATE OF VISIT: 02/16/2024 DATE OF : 1995 SS: [id number] PROVIDER: Delmy Doe, SUBJECTIVE 28 y.o. female to the clinic for [...] 10 days ago in a clinic in [place]. Questionable early pneumonia noted on x-ray. Radiologist [...] EXAM: BP 131/85 Pulse 92 Temp 97.9 F (36.6 C) Resp 18 Ht 5' 2 Wt [...] No current facility-administered medications for this visit. Delmy Doe DO documented in this encounter [facility] 02-16-2024 History of Presen t illness Narrative PATIENT NAME: Gus Wright [facility]: [address] [facility] [id number] DATE OF VISIT: 02/16/2024 DATE OF : 1995 SS: [id number] PROVIDER: Delmy Doe DO SUBJECTIVE 28 y.o. female to the clinic for [...] 10 days ago in a clinic in [place]. Questionable early pneumonia noted on x-ray. Radiologist [...] EXAM: BP 131/85 Pulse 92 Temp 97.9 F (36.6 C) Resp 18 Ht 5' 2 Wt [...] No current facility-administered medications for this visit. Delmy Doe DO documented in this encounter [facility] 02-01-2023 Note PROCEDURE: SHOULDER RIGHT COMPLETE, 02/01/2023 8:00 AM EST CLINICAL INDICATIONS: Right shoulder pain. COMPARISON: None TECHNIQUE: Right shoulder, 3 views. FINDINGS: Acute fracture, malalignment or bone destruction is not evident. Widening of the acromioclavicular joint up to 0.7 cm seen. Type II acromioclavicular strain is considered. Chest wall abnormality is not evident. Regional soft tissues are normal. IMPRESSION: Widening of acromioclavicular joint, type II acromioclavicular strain considered, age undetermined. [facility] Evaluation note Diagnosis Bronchitis- Primary Bronchitis, not specified as acute or chronic Acute nasopharyngitis Acute nasopharyngitis (common cold) Dysfunction of Eustachian tube, unspecified laterality documented in this encounter [facility] note* Diagnosis Bronchitis- Primary Bronchitis, not specified as acute or chronic Acute nasopharyngitis Acute nasopharyngitis (common cold) Dysfunction of Eustachian tube, unspecified laterality documented in this encounter [facility] noteNo assessment information [facility] Work Phone: Evaluation note* Diagnosis Onset Date Resolution Status Admit Date Abnormal uterine bleeding acute September 12, 2024 8:21am Other obesity acute September 12, 2024 8:21am PCOS (polycystic ovarian syndrome) acute September 12, 2024 8:21am Thyromegaly acute September 12 8:21am Encounter for gynecological examination (general) (routine) with abnormal noneactive August 8:21am [facility] Work Phone: Instructions* Attachments The following attachments cannot be sent through Care Everywhere. * Bronchitis (Dutch) * URI (Upper Respiratory Infection) (Dutch) * Eustachian Tube Problems (Dutch) documented in this encounterOhioHealthInstructions* Attachments The following attachments cannot be sent through Care Everywhere. * Bronchitis (Dutch) * URI (Upper Respiratory Infection) (Dutch) * Eustachian Tube Problems (Dutch) documented in this encounterOhioHealthProgress note Author Yahaira Cardona [facility] Note Date/Time September 12, 2024 9:07 am [facility] [address], [address] [place] [address] OFFICE VISIT Date of Service: 09/12/24 MR#: [id number] Acct: [id number] Name: GUS WRIGHT Rep #: [id number] : 1995 Provider: Dr. 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) *ok per Speech Language Therapist Required: No Is patient in pain?: No Allergies cinnamon Allergy (Mild, Verified 09/12/24 08:27) Anaphylaxis nickel Allergy (Mild, Verified 09/12/24 08:27) Rash acetaminophen (From [place]) Adverse Reaction (Mild, Verified 09/12/24 08:27) Vomiting hydrocodone (From [place]) Adverse Reaction (Mild, Verified 09/12/24 08:27) Vomiting Medications ?Medication ?Instructions ?Recorded ?Confirmed ?Type lamotrigine 25 mg tablet 50 mg PO DAILY 12/02/2308/21 History sertraline 100 mg tablet 150 mg PO Q24H 12/02/2308/21 History hydroxyzine HCl 25 mg tablet 25 mg PO BID PRN 09/12/24 09/12/24 History Is last menstrual period known: Yes Last Menstrual Period: 08/20/24 (periods areirregular and has spotting in between) Post menopausal: No Patient : No : No [facility] Medical History (Updated 09/12/24 @ 09:[address] Yahaira Cardona MD) Pre-eclampsia in second trimester History of miscarriage PCOS (polycystic ovarian syndrome) Pneumonia Kidney stones Carpal tunnel syndrome Anemia Asthma Anxiety Bipolar disorder Surgical History (Updated 09/12/24 @ 08:29 by Cat Lee) H/O right knee surgery History of appendectomy Family History (Updated 09/08/24 @ 13:04 by Nalini Jha) Mother Anemia Anxiety Father Anxiety Arthritis Depression Grandmother Anxiety Diabetes Grandfather Myocardial infarction, Onset Age: 82 Grandfather CVA (cerebral vascular accident) Uncle Suicide attempt Brother Asthma Depression Other Atrial fibrillation Hypertension Social History (Updated 09/12/24 @ 08:30 by Cat Lee) household members: spouse and children number of children: 1 current occupational status: employed 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 Last PAP: 2023 - normal History of abnormal PAP: no severe Last mammogram: not due History of abnormal mammogram: Colon cancer screening: not due Other preventative health care screenings: PCP Laci at [facility]. Female Reproductive History Last Menstrual Period: 08/20/24 (periods are irregular and has spotting in between) Cycle Length: 21-35 Bleeding Duration: 7 Questions: metorrhagia: Yes, sexually active: Yes, dyspareunia: No and PCB: Yes Menopausal Symptoms: No hot flashes, Yes night sweats, No weight change, No moodchanges, No difficulty concentrating, No sleep problems and No change in libido ROS Const Constitutional: Reports as per HPI, fatigue, night sweats and weight gain; Denies increased appetite, poor appetite or weight loss Cardio Card: Denies chest pain Resp Resp: Denies cough or dyspnea GI GI: Reports as per HPI; Denies abdominal pain, bloating, constipation, nausea or vomiting : Reports as per HPI, urinary incontinence and other; Denies difficulty voiding, dysuria, hematuria, hot flashes, nipple discharge, pelvic pain, prolapse symptoms, urinary frequency, urinary urgency, vaginal discharge, vaginal dryness, vaginal odor or vaginal pruritus Skin Skin/Breast: Denies changing lesions, breast mass, breast pain, breast skin changes or nipple discharge Psych Psych: Denies anxiety, change in libido, depression or difficulty concentrating Exam Const General: cooperative, healthy appearing, comfortable, no acute distress, well developed and well groomed [facility] Head: normal to inspection and normocephalic Ears: hearing grossly normal bilaterally and external ears normal Nose: external nose normal Face and sinus: normal facial exam Neck Neck: normal visual inspection, full ROM and no lymphadenopathy Thyroid: diffusely enlarged Chest Chest palpation & inspection: normal inspection of the chest Breast inspection: normal inspection of the breasts and normal inspection of theaxillae Breast palpation: normal palpation of the breasts, normal palpation of the axillae and no axillary lymphadenopathy Resp Effort & Inspection: normal respiratory effort GI Inspection: normal to inspection and non-distended Palpation: soft, no hepatosplenomegaly and no guarding General: bladder normal to palpation External Female Exam: normal external appearance, normal appearance of the urethra and no lesions Urethra: normal appearance of the urethra and normal palpation Speculum Exam - Vagina: normal appearance of the vagina and normal vaginal discharge Speculum Exam - Cervix: normal appearance of the cervix, no cervical discharge, no lesions and nontender Bimanual Exam- Vagina & Uterus: normal bimanual exam, uterine size normal, bladder normal to palpation, No tender, uterine mobility normal, consistency normal, non-tender and no cervical motion tenderness Bimanual Exam- Adnexa, other: normal adnexae, no masses and non-tender Skin General: no rashes or lesions noted Neuro General: patient alert, moves all extremities and no focal motor deficits Extrem General: normal to inspection and no pedal edema Psych Appearance: grossly normal Mental Status: mental status grossly normal Affect: normal affect Speech and Movement: speech and movement normal Attitude: cooperative Coding Level of Care Code Off vis,new,prev 18-39yrs Diagnoses PCOS (polycystic ovarian syndrome) E28.2 Abnormal uterine bleeding N93.9 Other obesity E66.89 Encounter for gynecological examination (general) (routine) with abnormal findings Z01.411 Thyromegaly E01.0 Assessment and Plan Assessment and Plan (1) PCOS (polycystic ovarian syndrome): Status: Acute (2) Abnormal uterine bleeding: Status: Acute (3) Other obesity: Status: Acute (4) Encounter for gynecological examination (general) (routine) with abnormal findings: (5) Thyromegaly: Status: Acute Plan Cervical cancer screening: pap up to date Breast cancer screening: clinical other health maintenance examination reviewed and orders placed if needed. Encouraged maintenance of a healthy weight and active lifestyle and handout given. Annual exam handout including recommendations for good health guidelines, Calcium/vitamin D recommendations, and basic screening information given. Problem list up to date, see problem list details for any additional plan information. Follow up in one year for annual health maintenance exam or sooner if needed. 09/12/24 0907 <Electronically signed by Yahaira thapa MD> Date _ Yahaira Cardona MD Cosigner Signature: Date (if applicable) CC: ~ [facility] Work Phone: Reason for referral (narrative)No reason for referral information availableDoctor[facility] Phone: Summary Purpose Family History Relationship Condition Age at Onset Recorded Date/T sara Not Specified Atrial fibrillation Unknown Hypertension Unknown Cerebrovascular accident (CVA) Unknown Relationship Condition Age at Onset Recorded Date/T sara Not Specified Atrial fibrillation Unknown Hypertension Unknown mother Anemia Unknown Anxiety Unknown father Anxiety Unknown Arthritis Unknown Depression Unknown grandmother Anxiety Unknown Diabetes mellitus Unknown grandfather Myocardial infarction 82 grandfather Cerebrovascular accident (CVA) Unknown uncle Attempted suicide Unknown brother Asthma Unknown Advance Directives No Advanced Directives Records FoundNo Advanced Directives Records FoundNo Advanced Directives Records Found Chief Complaint and Reason for Visit Chief Complaint Admit Date 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 DATE CREATED AUTHOR AUTHOR'S ORGANIZ ATION 09/11/2024 [facility] Reason for Visit (unrecogniz ed section and content) Reason Comments Illness St, cough, rt ear pa in, having trouble with asthma Seen and treated with Augmentin with one day left Care Teams (unrecognized sec tion and content) Sole Layer Relationship Specialty Start Date End Date No, Physician [facility] PCP - General 02/16/24 Sole Layer Relationship Specialty Start Date End Date No, Physician [facility] PCP - General 02/16/24 Team Status: Active Member Role Status Dates No Primary Care Physician Primary Care Provider Active Team Status: Inactive Member Role Status Dates No Primary Care Physician Primary Care Provider Active Start: September 12, 2024 End: September 12, 2024 No Primary Care Physician Referring Provider Active Start: September 12, 2024 End: September 12, 2024 Dr. Yahaira Cardona MD Attending Provider Active Start: September 12, 2024 End: September 12, 2024 Goals (unrecognized section and content) Goals may be documented in a n alternate sectionGoals may be documented in an alternate section FOR RECORDS PERTAINING TO PATIENTS WHO ARE OR HAVE BEEN ENROLLED IN A CHEMICAL DEPENDENCY/SUBSTANCEABUSE PROGRAM, SOME INFORMATION MAY BE OMITTED. This clinical summary was aggregated from multiple sources. Caution should be exercised in using it in the provision of clinical care. This summary normalizes information from multiple sources, and as a consequence, information in this document may materially change the coding, format and clinical context of patient data. In addition, data may be omitted in some cases. CLINICAL DECISIONS SHOULD BE BASED ON THE PRIMARY CLINICAL RECORDS. [facility] [employer] [facility]. provides no warranty or guarantee of the accuracy or completeness of information in this document.
[2024-09-13 08:30] LABS: Hemoglobin A1c 5.6 % (<=5.6)
[2024-09-16 19:08] LABS: Anti-Cardiolipin Ab, IgG, Qn < 9 GPL U/mL (0-14); Anti-Cardiolipin Ab, IgM, Qn < 9 MPL U/mL (0-12); Beta-2-Glycoprotein I IgA <9 (0-25); Beta-2-Glycoprotein I IgG <9 (0-20); Beta-2-Glycoprotein I IgM <9 (0-32); Dilute Prothrombin Time (dPT) 39.7 sec (0.0-47.6); Dilute Russell Viper Venom 38.6 sec (0.0-47.0); Interpretation Comment: (.); PTT-LA 38.2 sec (0.0-43.5); Testosterone Free 0.9 pg/mL (0.0-4.2); Thrombin Time 18.1 sec (0.0-23.0); Thyroid Peroxidase AB < 9 IU/mL (0-34); dPT Confirm Ratio 1.06 Ratio (0.00-1.34)
[2024-09-17 12:07] LABS: 17-Hydroxyprogesterone 33 ng/dL (.)
== END | disposition home or self-care (01) ==
LOC: LAB 07:11
PROVIDERS: PCP Internal Medicine; Referring Provider Obstetrics & Gynecology; Visit Provider Obstetrics & Gynecology
DX: Z13.1 Encounter for screening for diabetes mellitus (principal); Z13.21 Encounter for screening for nutritional disorder; Z13.29 Encounter for screening for other suspected endocrine disorder; Z13.220 Encounter for screening for lipoid disorders; E01.0 Iodine-deficiency related diffuse (endemic) goiter; E28.2 Polycystic ovarian syndrome; N93.9 Abnormal uterine and vaginal bleeding, unspecified; N96 Recurrent pregnancy loss; Z87.59 Personal history of other complications of pregnancy, childbirth and the puerperium
CPT/HCPCS: 36415; 82306; 82627; 83036; 83498; 84402; 84403; 84439; 84443; 86146; 86147; 86376; 82626

== ENCOUNTER → 2024-09-26 | Outpatient (CLI) | payer OTHER, SELFPAY ==
--- NOTE | 2024-09-26 20:01 | US_ITS ---
PROCEDURE: THYROID 09/26/2024 REASON FOR EXAM: THYROMEGALY TECHNIQUE: THYROID COMPARISON: None FINDINGS: Right thyroid lobe size: 5.4x2.4x1.4 cm Midpole solid nodule measuring 4 x 3 x 2 mm is noted. Another midpole complex solid/cystic nodule measuring 4 x 4 x 2 mm is noted. Left thyroid lobe size: 5.4x2.6x1.3 cm Midpole solid nodule measuring 5 x 4.3 mm is noted. Isthmus: 0.2 cm US/Thyroid IMPRESSION: Bilateral thyroid lobes TR4 nodule. Reading [facility]
== END | disposition home or self-care (01) ==
LOC: US 20:00
PROVIDERS: PCP Internal Medicine; Referring Provider Obstetrics & Gynecology; Visit Provider Obstetrics & Gynecology
DX: E01.0 Iodine-deficiency related diffuse (endemic) goiter (principal)
CPT/HCPCS: 76536

== ENCOUNTER → 2024-09-28 | Outpatient (CLI) | payer OTHER, SELFPAY ==
--- NOTE | 2024-09-28 13:25 | US_ITS ---
PROCEDURE: PELVIC W/ TRANSVAGINAL REASON FOR EXAM: ABNORMAL UTERINE BLEEDING TECHNIQUE: PELVIC W/ TRANSVAGINAL COMPARISON: None FINDINGS: LMP: September 21, 2024. Measurements: Uterus: 8.3 cm x 5.2 cm x 3.4 cm with a volume of 77.08 mL Endometrial Thickness: 14.1 mm. It is hyperechoic. Right Ovary: 3.8 cm x 2.3 cm x 2.9 cm with a volume of 12.88 mL. Left Ovary: 3.4 cm x 2.8 cm x 2.2 cm with a volume of 10.91 mL. TRANSABDOMINAL: Uterus: Normal size, myometrial echotexture, and contour. Endometrium: Endometrium is thickened and measures 14.1 mm. Right ovary: Normal size and echotexture. Left ovary: Normal size and echotexture. Other: No large pelvic mass identified. Transvaginal sonography was performed to better visualize the endometrium. TRANSVAGINAL: Uterus: Anteverted. Normal contour and myometrial echotexture. Endometrium: Endometrial thickening measuring 14.1 mm. Right ovary: Normal size and echotexture. Left ovary: Normal size and echotexture. Other adnexal findings: None. Cul-de-sac: No free intraperitoneal fluid identified. Tenderness: No tenderness US/Pelvic w/ Transvaginal IMPRESSION: Endometrial thickening measuring 14.1 mm. Clinical correlation recommended. Reading Location: [place] [id number]
== END | disposition home or self-care (01) ==
PROVIDERS: PCP Internal Medicine; Referring Provider Obstetrics & Gynecology; Visit Provider Obstetrics & Gynecology
DX: N93.9 Abnormal uterine and vaginal bleeding, unspecified (principal)
CPT/HCPCS: 76830; 76856

== ENCOUNTER 2024-10-15 13:30 | Emergency (ER) | payer OTHER, SELFPAY ==
[2024-10-15 13:31] VITALS: BP 169/89; PULSE 90; RESP 18; TEMP 36.1; O2SAT 99; BMI 44.9
[2024-10-15 14:10] VITALS: BP 131/72; BP 131/80; BP 135/89; PULSE 103; PULSE 87; PULSE 88
--- NOTE | 2024-10-15 14:11 | ED.VIS.FEGU ---
HPI HPI - Female History of Present Illness Chief Complaint: Vag Bleeding Detail of Chief Complaint: Vaginal bleeding for 3 weeks worse past 24 hours Pain Pain: Positive for Pelvic Pain Onset: Days Context: Sudden Onset Timing: Waxes and wanes Quality: Positive for Cramping Location: - (Pelvic area) Current Severity: Mild Maximum Severity: Moderate Worsened by: Movement and [place] Relieved by: Remaining Still, NSAIDS and Tylenol Bleeding Issue: Positive for Vaginal bleeding and Passing clots; Negative for Passing tissue Onset: Weeks (Bleeding started September 28. Past 24 hours she has passed clots as large as baseballs.) Timing: Continuous Current Severity: Heavy Current pads/hr: 1 Maximum Severity: Heavy Maximum pads/hr: 1 Associated Symptoms Associated Symptoms: Positive for Irregular Period; Negative for Dysuria, Frequency, Urgency, Hematuria or Missed Period Sexually: Positive for Active Control: No control Narrative Narrative: Patient had an outpatient ultrasound of the pelvis on September 28, 2024. Measurement of the uterus was 8.3 x 5.2 x 3.4 cm with a volume of 77.08 mL. Endometrial thickening was noted at 14.1 mm and is hyperechoic. Right ovary was 3.8 x 2.3 x 2.9 cm with a volume of 12.88 mL. The left ovary was 3.4 x 2.8 x 2.2 the volume of 10.91 mL. The uterus was normal size myometrial echotexture and contour noted. Endometrium was thickened as previously noted. No other pelvic masses were identified. Patient was seen by her tow operator Dr. Yahaira Cardona. She had an outpatient ultrasound. Stacy was not done at that time. She is sexually active. She is not using for control. She denies nausea, vomit diarrhea. She denies history of STI. She states she does have history of ovarian cysts/polycystic ovarian disease. There is consideration for endometriosis. Patient states she is passing large clots. She feels lightheaded with standing. She is saturating a pad every hour. She has no history of bleeding disorder or bruising easily. Prior similar symptoms: Yes Recent Illness/Hospitalization: No [facility] Medical History Pre-eclampsia in second trimester History of miscarriage PCOS (polycystic ovarian syndrome) Pneumonia Kidney stones Carpal tunnel syndrome Anemia Asthma Anxiety Bipolar disorder Home Medications ?Medication ?Instructions ?Recorded ?Last Taken ?Type lamotrigine 25 mg tablet 50 mg PO DAILY 12/02/23 Unknown History sertraline 100 mg tablet 150 mg PO Q24H 12/02/23 Unknown History hydroxyzine HCl 25 mg tablet 25 mg PO BID PRN 09/12/24 Unknown History megestrol 40 mg tablet 40 mg PO DAILY #30 tabs 10/15/24 Unknown Rx Allergy/AdvReac Type Severity Reaction Status Date / Time cinnamon Allergy Mild Anaphylaxis Verified 10/15/24 13:30 nickel Allergy Mild Rash Verified 10/15/24 13:30 acetaminophen (From [place]) AdvReac Mild Vomiting Verified 10/15/24 13:30 hydrocodone (From [place]) AdvReac Mild Vomiting Verified 10/15/24 13:30 Family History Mother Anemia Anxiety Father Anxiety Arthritis Depression Grandmother Anxiety Diabetes Grandfather Myocardial infarction, Onset Age: 82 Grandfather CVA (cerebral vascular accident) Uncle Suicide attempt Brother Asthma Depression Other Atrial fibrillation Hypertension Surgical History H/O right knee surgery History of appendectomy Social History household members: spouse and children number of children: 1 current occupational status: employed 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 Smoking Status: Never smoker alcohol intake: current alcohol intake frequency: holidays/special occasions only details: once a week at most substance use type: does not use what type of physical activity do you participate in: weight training frequency: 1-2 times per week seatbelt use: always do you feel safe at home: Yes additional social history: [employer] ED Constitutional Constitutional ED: Denies chills, fever(s), subjective or sweats Cardiovascular Cardiovascular: Denies chest pain or palpitations Respiratory/Chest Respiratory/Chest: Denies cough, dyspnea or dyspnea on exertion Gastrointestinal Gastrointestinal: Reports abdominal pain; Denies constipation, diarrhea, melena, nausea or vomiting Genitourinary Genitourinary ED: Denies dysuria, hematuria or urinary frequency Musculoskeletal Musculoskeletal: Denies arthralgias, myalgias or neck pain Integumentary Denies rash Neurologic Neurologic: Denies headache(s) or paresthesias Hematologic/Lymphatic Hematologic/Lymphatic: Denies easy bleeding or easy bruising EXAM Physical Exam Const Vital Signs: 10/15/24 13:31 10/15/24 14:10 Temperature 97 F L Temperature Source Temporal Pulse Rate 90 Pulse Rate [Lying] 88 Pulse Rate [Sitting (for 1 minute prior to obtaining)] 87 Pulse Rate [Standing (for 1 minute prior to obtaining)] 103 H Respiratory Rate 18 Blood Pressure 169/89 H Blood Pressure [Lying] 131/72 H Blood Pressure [Sitting (for 1 minute prior to obtaining)] 131/80 H Blood Pressure [Standing (for 1 minute prior to obtaining)] 135/89 H Blood Pressure Mean 115 Blood Pressure Mean [Lying] 91 Blood Pressure Mean [Sitting (for 1 minute prior to obtaining)] 97 Blood Pressure Mean [Standing (for 1 minute prior to obtaining)] 104 Pulse Ox 99 Oxygen Delivery Method Room Air Positive well nourished and well developed Constitutional Narrative: Patient does appear pale. Blood pressure is elevated. BMI is 44.9. General Appearance ED: well developed and pallor; Negative for odor of alcohol detected HEENT Reports moist mucous membranes HEENT Narrative: Head is atraumatic normocephalic. Ears are normal. Eyes PERRL and EOMs intact bilaterally General Eye ED: Negative for pale conjunctiva or scleral icterus Neck no lymphadenopathy, supple and no JVD Resp normal respiratory effort and clear to auscultation bilaterally Cardio regular rate, regular rhythm, S1 normal heart sound, no murmurs and no JVD GI normal to inspection, nondistended, normoactive bowel sounds, soft to palpation, non-distended and no masses; Negative for non-tender Palpation: tender LLQ and suprapubic Narrative: External genitalia normal. There was a large clot that was evacuated from the vagina. The os is open. Unable to determine size of uterus or appreciate any fullness or mass in the adnexa due to body habitus. There is minimal bleeding at this time. Back/Spine no CVA tenderness Extremity normal to inspection and full ROM Neuro oriented x3 and CN's II-XII intact bilaterally Sensorium / Orientation: alert Psych mental status grossly normal Skin no rashes or lesions noted and no wounds General Skin Exam: pallor MDM MDM MDM Narrative Medical decision making narrative: Patient appears pale. Conjunctive is not pale however. Will obtain CBC to assess H&H and platelet count. Will obtain serum test since 1 was not obtained earlier this month. Will perform a pelvic exam. If needed will call and catering director for pelvic ultrasound. History & Record Review Additional record(s) reviewed:: Prior outpatient record (Reviewed outpatient OB notes and ultrasound.) and Prior labs Lab Data Attestation: I reviewed the patient's lab results. Lab results narrative: Hemoglobin is down to half a gram since mid August. Indices are low. Indices were low September 13. Labs: Laboratory Results - last 24 hr 10/15/24 13:45 WBC 6.6 RBC 4.45 Hgb 10.8 L Hct 34.9 L MCV 78.4 L MCH 24.3 L MCHC 30.9 L RDW Std Deviation 42.3 RDW Coeff of Alyson 14.8 H Plt Count 255 MPV 9.5 Immature Gran % (Auto) 1.100 H Neut % (Auto) 71.2 H Lymph % (Auto) 21.7 [place] % (Auto) 3.8 Eos % (Auto) 1.7 Baso % (Auto) 0.5 Absolute Neuts (auto) 4.7 Absolute Lymphs (auto) 1.43 Nucleated RBC % 0 Serum , Qual NEGATIVE Management Discussion w/another healthcare provider: [facility] (Spoke with Dr. Christianson. She recommended Megace 40 mg for 30 days. Would like patient to call the office tomorrow to be seen within the next week.) Discharge Plan Triage Chief Complaint: Vag Bleeding ED Provider: Darryl Upton Dx/Rx/DC Orders Clinical Impression: Abnormal vaginal bleeding, PCOS (polycystic ovarian syndrome), Microcytic anemia, Adult BMI 40.0-44.9 kg/sq m, Endometrial thickening on ultrasound, Elevated blood-pressure reading without diagnosis of hypertension Instructions: ED Dysfunctional Uterine Bleeding, ED Hypertension, To Be Confirmed Prescriptions: New megestrol 40 mg tablet 40 mg PO DAILY Qty: 30 0RF No Action lamotrigine 25 mg tablet 50 mg PO DAILY Rx Instructions: 50mg in AM; 25mg in evening sertraline 100 mg tablet 150 mg PO Q24H hydroxyzine HCl 25 mg tablet 25 mg PO BID PRN Primary Care Provider: Manuel Javier Referrals: Manuel Javier MD [Primary Care Provider] - 1-2 Weeks Activity Restrictions/Additional Instructions: Call Dr. Yahaira Cardona's office tomorrow morning for follow-up appointment. Print Language: Yakut Disposition Disposition: Home, Self Care
--- OUTSIDE RECORDS SUMMARY | 2024-10-15 14:27 | XMS RPT_ITS | CCD ---
Author Organization [facility] Care Team Providers Care Marshmallow Maker Name Role Phone LACI MEANS, DR SANCHO Worley Consulting Unavail able LACI MEANS, DR~[id number] SANCHO Worley Primary Care Unavailable WOOD DO~[id number], WOOD JESUS A Admitting Unavailable WOOD DO~[id number], WOOD JESUS A Attending Unavailable LACI MEANS, DR SANCHO Worley Consulting Unavail able KENNEDY MEANS, BIRAUSTIN Costa Consulting Unavailable KENNEDY MEANS, BIRVA Julissa Consulting Unavailable WOOD DO, JESUS A Consulting Unavailable WOOD DO, JESUS A Consulting Unavailable VIRGINIE MEANS, DR~[id number] DAGOBERTO A Admitting Unavailable VIRGINIE MEANS, DR~[id number] DAGOBERTO Costa Attending Unavailable LACI MEANS, DR SANCHO Worley Consulting Unavail able LACI MEANS, DR~[id number] SANCHO Worley Primary Care Unavailable LACI MEANS, DR ASNCHO Worley Consulting Unavail able LACI MEANS, DR~[id number] SANCHO Worley Primary Care Unavailable TAMIKA DO~[id number], TAMIKA SOTERO N Admitting Unavailable TAMIKA DO~[id number], TAMIKA SOTERO N Attending Unavailable NONE, NONE Consulting Unavailable DECLINED, Consulting Unavailable TAMIKA DO, SOTERO N Consulting Unavailable TAMIKA DO, SOTERO N Consulting Unavailable LACI MEANS, DR~[id number] SANCHO Worley Primary Care Unavailable TAMIKA DO~[id number], TAMIKA SOTERO N Admitting Unavailable TAMIKA DO~[id number], TAMIKA SOTERO N Attending Unavailable NONE, NONE Consulting Unavailable DECLINED, Consulting Unavailable TAMIKA DO, SOTERO N Consulting Unavailable TAMIKA DO, SOTERO N Consulting Unavailable LACI MEANS, DR SANCHO Worley Admitting Unavail able LACI MEANS, DR SANCHO Worley Primary Care Unavail able LACI MEANS, DR SANCHO Worley Consulting Unavail able LACI MEANS, DR SANCHO Worley Attending Unavail able LACI MEANS, DR SANCHO Worley Consulting Unavail able No, Physician Primary Care Provider Unavailabl e NO, PHYSICIAN Primary Care Unavailable DELMY DOE Attending Unavailable Care Physician, No Primary Primary Care Provider Unavailable Care Physician, No Primary Referring Provider Un available Dulce MEANS, Dr. Syed Attending Provider Dr. Sancho Aguero MD Primary Care Provider Dr. Yahaira Cardona MD Referring Provider Assessment, Health Risk Attending Provider Unava ilable Assessment, Health Risk Referring Provider Unava ilable Dr. Sancho Aguero MD Referring Provider Dr. Delmy Lentz MD Attending Provider Sancho Aguero Primary Care Unavailable Yahaira Cardona Attending Unavailable Yahaira Cardona Referring Unavailable Sancho Aguero Primary Care Unavailable Yahaira Cardona Attending Unavailable Yahaira Cardona Referring Unavailable Narendra Judge Attending Unavailable Narendra Judge Referring Unavailable Care Physician, No Primary Primary Care Unava ilable Chilo Meléndez Attending Unavailable Chilo Meléndez Referring Unavailable Care Physician, No Primary Primary Care Unava ilable Care Physician, No Primary Primary Care Unava ilable Provider, Ed Physician Attending Unavailab le Sancho Aguero Primary Care Unavailable Assessment, Health Risk Attending Unavaila ble Assessment, Health Risk Referring Unavaila ble Adrian Woods Attending Unavailable Care Physician, No Primary Primary Care Unava ilable Care Physician, No Primary Referring Unava ilable Yahaira Cardona Attending Unavailable Care Physician, No Primary Referring Unava ilable Care Physician, No Primary Primary Care Unava ilable Narendra Judge Attending Unavailable Care Physician, No Primary Primary Care Unava ilable Care Physician, No Primary Referring Unava ilable Care Physician, No Primary Primary Care Unava ilable Care Physician, No Primary Primary Care Unava ilable Sancho Aguero Referring Unavailable Sancho Aguero Primary Care Unavailable Delmy Lentz Attending Unavailable Sancho Aguero Primary Care Unavailable Yahaira Cardona Attending Unavailable Yahaira Cardona Referring Unavailable Allergies Allergy Classification Reported Allergen(s) Allergy Type Date of Onset Reaction(s) Facility (1 source) Acetaminophen / HYDROcodone Drug Allergy [facility] (8 sources) Cinnamon Preparation; Translations: [Cinnamon] Drug Allergy 02-07-2024 Anaphylaxis [facility] (1 source) Leucine Drug Allergy [facility] (6 sources) Acetaminophen Drug Allergy 02-07-2024 Vomiting [facility] (6 sources) HYDROcodone Drug Allergy 02-07-2024 Vomiting [facility] (6 sources) nickel Drug Allergy 02-07-2024 Rash [facility] (1 source) Acetaminophen Drug Allergy 10-09-2024 [facility] (1 source) HYDROcodone Drug Allergy 10-09-2024 [facility] (1 source) nickel Drug Allergy 10-09-2024 [facility] Rep[facility] Medications Current Medications Medication Drug Class(es) Dates Sig (Normalized) Sig (Original) amoxicillin 875 mg / clavulanate 125 mg oral tablet (10 sources) Penicillin-class Antibacterial Start: 02-07-2024 amoxicillin-clavu lanate [...] Qvar RediHaler 40 mcg/actuation HFAB 01/31/2024 Active lamoTRIgine 25 mg oral tablet (10 sources) Mood Stabilizer, Anti-epileptic Agent Start: 12-02-19 [...] times a day . 11/11/2023 Active levonorgestrel 0.993153 mg/hr intrauterine system (4 sources) Progestin, Progestin-containing Intrauterine Device levonorgestreL (SKYL A) IUD iud by Intrauterine route . Active sertraline 100 mg oral tablet (10 sources) Serotonin Reuptake Inhibitor Start: Sertraline 100 mg tablet Active 150 mg PO Q24H December 02, 2023 12:00am Start: 11-11-2023 sertraline (ZO LOFT) 100 MG tablet 11/11/2023 Active Completed/Discontinued Medications Medication Drug Class(es) Dates Sig (Normalized) Sig (Original) hydrOXYzine hydrochloride 25 mg oral tablet (15 sources) Antihistamine Start: 11-11-2023 End: 09-12-2024 take 1 tablet by mouth twice daily Hydroxyzine Hcl 25 mg tablet Discontinued 25 mg PO TWICE A DAY December 02, 2023 12:00am September 12, 2024 8:28am predniSONE 10 mg oral tablet (14 sources) [...] Active Problems Problem Classification Problem Date Documented Date Episodic/Chronic Anal and rectal conditions (6 sources) Acute anal fissure; Translations: [Acute anal fissure] 12-10-2023 Episodic Asthma (6 sources) Asthma; Translations: [Unspecified asthma, uncomplicated] 02-07-2024 Chronic Chronic obstructive pulmonary disease and bronchiectasis (6 sources) Bronchitis; Translations: [Bronchitis, not specified as acute or chronic] Onset: 02-16-2024 02-16-2024 Episodic Other endocrine disorders (10 sources) Polycystic ovary syndrome; Translations: [Polycystic ovarian syndrome] 09-12-2024 Chronic Other endocrine disorders (1 source) Polycystic ovarian syndrome; Translations: [Polycystic ovarian syndrome] Onset: 09-12-2024 Chronic Other female genital disorders (10 sources) Abnormal uterine bleeding; Translations: [Abnormal uterine and vaginal bleeding, unspecified] 09-12-2024 Chronic Other female genital disorders (1 source) Abnormal uterine and vaginal bleeding, unspecified; Translations: [Abnormal uterine and vaginal bleeding, unspecified] Onset: 10-03-2024 Chronic Other nutritional; endocrine; and metabolic disorders (10 sources) Obesity; Translations: [Other obesity] 09-12-2024 Chronic Other screening for suspected conditions (not mental disorders or infectious disease) (1 source) Encounter for screening for diabetes mellitus; Translations: [Encounter for screening for diabetes mellitus] Onset: 09-18-2024 Episodic Other upper respiratory infections (6 sources) Nasopharyngitis; Translations: [Acute nasopharyngitis [common cold]] Onset: 02-16-2024 02-16-2024 Episodic Otitis media and related conditions (6 sources) Dysfunction of eustachian tube; Translations: [Unspecified Eustachian tube disorder, unspecified ear] Onset: 02-16-2024 02-16-2024 Episodic Thyroid disorders (19 sources) Nontoxic single thyroid nodule; Translations: [Goiter] Onset: 06-24-2023 Chronic Unclassified (1 source) Other obesity not elsewhere classified; Translations: [Other obesity not elsewhere classified] Onset: 09-12-2024 Unclassified (1 source) Cough, unspecified; Translations: [Cough, unspecified] Onset: 03-05-2024 Past or Other Problems Problem Classification Problem Date Documented Da te Episodic/Chronic Administrative/social admission (3 sources) Encounter for examination for insurance purposes; Translations: [ENCOUNTER EXAM INSURANCE PURPOSES] Onset: 3 Episodic E Codes: Machinery (1 source) Contact with other specified machinery, initial encounter; Translations: [CONTACT OTH SPEC MACHINERY INITIAL] Onset: 4 Episodic E Codes: Place of occurrence (1 source) Other place in hospital as the place of occurrence of the external cause; Translations: [OTH PLACE HOSP PLACE OCCUR EXT CAUS] Onset: 4 Episodic E Codes: Struck by; against (1 source) Striking against other stationary object, initial encounter; Translations: [STRIK AGNST OTH STATIONARY OBJ INIT] Onset: 4 Episodic E Codes: Unspecified (1 source) Civilian activity done for income or pay; Translations: [CIVILIAN ACTV DONE FOR INCOME/PAY] Onset: 4 Episodic Gastrointestinal hemorrhage (7 sources) Gastrointestinal hemorrhage; Translations: [Hemorrhage of anus and rectum] Onset: 4 12-10-2023 Episodic Intracranial injury (3 sources) Concussion without loss of consciousness, initial encounter; Translations: [CONCUSSION WITHOUT LOC INITIAL ENC] Onset: 4 Episodic Other injuries and conditions due to external causes (1 source) Unspecified injury of head, initial encounter; Translations: [UNSPECIFIED INJURY HEAD INITIAL ENC] Onset: 4 Episodic Sprains and strains (3 sources) Sprain of unspecified ligament of right ankle, initial encounter; Translations: [SPRAIN UNS LIGAMENT RT ANKLE INIT] Onset: 4 Episodic Superficial injury; contusion (1 source) Contusion of right foot, initial encounter; Translations: [CONTUSION RIGHT FOOT INITIAL ENC] Onset: 4 Episodic Results Test Name Value Interpretation Reference Range Facility Surgery Visit Reporton 10-09 Surgery Visit Report [facility] [address] [place] [address] OFFICE VISIT Date of Service: 10/09/24 MR#: [id number] Acct: [id number] Name: GUS WRIGHT Rep #: [id number] : 1995 Provider: Dr. Delmy lombardo MD Age/Sex: 28/F Location: [facility] Status: Signed Intake Vital Signs 09/12/24 08:24 10/09/24 07:59 Height 5 ft 2 in 5 ft 2 in Weight: 248 lb 6 oz BMI 45.4 BP 132/84 H Blood Pressure Location Rt brachial Position Sitting Respiration 18 Pulse 82 Pulse Source Monitor Temp 97.2 F L Temp Source Temporal Pulse Oximetry (%) 99 Oxygen Delivery Method room air Intake Visit Reasons: THYROID CONSULT ONLY Chief Complaint: thyroid consult Is patient in pain?: No Allergies cinnamon Allergy (Mild, Verified 10/09/24 08:00) Anaphylaxis nickel Allergy (Mild, Verified 10/09/24 08:00) Rash acetaminophen (From [facility]) Adverse Reaction (Mild, Verified 10/09/24 08:00) Vomiting hydrocodone (From [facility]) Adverse Reaction (Mild, Verified 10/09/24 08:00) Vomiting Medications ???Medication ???Instructions ???Recorded ???Confirmed ???Type lamotrigine 25 mg tablet 50 mg PO DAILY 12/02/23 10/09/24 H istory sertraline 100 mg tablet 150 mg PO Q24H 12/02/23 10/09/24 H istory hydroxyzine HCl 25 mg tablet 25 mg PO BID PRN 09/12/24 10/09/24 History PFSH Medical History (Updated 10/09/24 @ 17:[address] Delmy Lentz MD) Pre-eclampsia in second trimester History of miscarriage PCOS (polycystic ovarian syndrome) Pneumonia Kidney stones Carpal tunnel syndrome Anemia Asthma Anxiety Bipolar disorder Surgical History H/O right knee surgery History of appendectomy Family History Mother Anemia Anxiety Father Anxiety Arthritis Depression Grandmother Anxiety Diabetes Grandfather Myocardial infarction, Onset Age: 82 Grandfather CVA (cerebral vascular accident) Uncle Suicide attempt Brother Asthma Depression Other Atrial fibrillation Hypertension Social History household members: spouse and children number of children: 1 current occupational status: employed 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 They are referred for surgical consultation from Dr. Aguero, PCP and Dr. Cardona of [facility]. This was discovered during workup for causes of recent infertility, however, patient states she was first made aware of thyroid nodules during ultrasound 7 years ago but no follow-up was conducted. They do not experience difficulty with swallowing. They do not complain of a new cough. They do not appreciate new voice changes. They do have a history of snoring/sleep apnea and they state that there is snoring has apparently become more pronounced per her 's report. Additionally, their weight has been a point of frustration and they describe an inability to lose despite intentional effort (primarily through calorie counting). There is also history of recent fatigue and patient reports that she sleeps but does not awaken refreshed. They do not have a history of heat or cold intolerance. Other symptoms include: Pertinent positives: Chronic constipation, nighttime sweats, difficulty concentrating, hair loss (recently worse), brittle nails (chronic/stable), pertinent negatives: No palpitations. They do have a family history of thyroid disorders or endocrinopathies and shared about a probable pituitary adenoma in their mother. 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 Previous work-up has included thyroid ultrasound. This study was performed on 09/26/2024 and showed a right thyroid lobe measuring 5.4 x 2.4 x 1.4 cm. Within this lobe radiology identified 2 nodules measuring 0.4 x 0.3 x 0.2 and a second nodule measuring 0.4 x 0.4 x 0.2 cm of the mid polar region 1 of which was rated a TI-RADS 4. The left thyroid lobe measured 5.4 x 2.6 x 1.3 cm. Within this lobe radiology identified a nodule measuring 0.5 x 0.4 x 0.3 cm TI-RADS 4 nodule in the midpole region. An FNA has not been perf (more content not included)... Normal [facility] Pelvic w/ Transvaginalon Pelvic w/ Transvaginal [facility] Imaging Services [address] [place] [address] Pelvic w/ Transvaginal MR#: [id number] Acct: [id number] Name: GUS WRIGHT Rep #: [id number] : 1995 F 28 From: Adriano jauregui MD PCP: Dr. Sancho Aguero MD Status: REG CLI Study: Pelvic w/ Transvaginal Date of Exam: 09/28/24 Exam# [id number] Ordering Dr: Yahaira Cardona PROCEDURE: PELVIC W/ TRANSVAGINAL REASON FOR EXAM: ABNORMAL UTERINE BLEEDING TECHNIQUE: PELVIC W/ TRANSVAGINAL COMPARISON: None FINDINGS: LMP: September 21, 2024. Measurements: Uterus: 8.3 cm x 5.2 cm x 3.4 cm with a volume of 77.08 mL Endometrial Thickness: 14.1 mm. It is hyperechoic. Right Ovary: 3.8 cm x 2.3 cm x 2.9 cm with a volume of 12.88 mL. Left Ovary: 3.4 cm x 2.8 cm x 2.2 cm with a volume of 10.91 mL. TRANSABDOMINAL: Uterus: Normal size, myometrial echotexture, and contour. Endometrium: Endometrium is thickened and measures 14.1 mm. Right ovary: Normal size and echotexture. Left ovary: Normal size and echotexture. Other: No large pelvic mass identified. Transvaginal sonography was performed to better visualize the endometrium. TRANSVAGINAL: Uterus: Anteverted. Normal contour and myometrial echotexture. Endometrium: Endometrial thickening measuring 14.1 mm. Right ovary: Normal size and echotexture. Left ovary: Normal size and echotexture. Other adnexal findings: None. Cul-de-sac: No free intraperitoneal fluid identified. Tenderness: No tenderness US/Pelvic w/ Transvaginal IMPRESSION: Endometrial thickening measuring 14.1 mm. Clinical correlation recommended. Reading Location: [place] [address] CC: Dr. Yahaira Cardona MD; Dr. Sancho Aguero MD Oil Well Logger: Signed [facility] Thyroidon 09-26-2024 Thyroid [facility] Imaging Services [address] [place] [address] Thyroid MR#: [id number] Acct: [id number] Name: GUS WRIGHT Rep #: [id number] : 1995 F 28 From: Paul link MD PCP: Dr. Sancho Aguero MD Status: REG CLI Study: Thyroid Date of Exam: 09/26/24 Exam# [id number] Ordering Dr: Yahaira Cardona PROCEDURE: THYROID 09/26/2024 REASON FOR EXAM: THYROMEGALY TECHNIQUE: THYROID COMPARISON: None FINDINGS: Right thyroid lobe size: 5.4x2.4x1.4 cm Midpole solid nodule measuring 4 x 3 x 2 mm is noted. Another midpole complex solid/cystic nodule measuring 4 x 4 x 2 mm is noted. Left thyroid lobe size: 5.4x2.6x1.3 cm Midpole solid nodule measuring 5 x 4.3 mm is noted. Isthmus: 0.2 cm US/Thyroid IMPRESSION: Bilateral thyroid lobes TR4 nodule. Reading Location: [place] [address] CC: Dr. Yahaira Cardona MD; Dr. Sancho Aguero MD [employer] Logger: Signed [facility] 17-Hydroxyprogesteroneon 17ALPHA OH-PROG 33 ng/dL Normal . [facility] Comment on above: Order Comment: Test( s) 154854-90-OR Progesterone LCMSwas developed and its performance characteristicsdetermined by [employer]. It has not been cleared or approvedby the Food and Drug Administration.N Result Comment: Adul t Female Follicular 15 - 70 Luteal 35 - 290 Performed at: [address] [id number] Training And Development Rep: aCrmelina Vinson MD, Phone: [phone] Performed By: #### L 501.9520, L4500.0100, L3300.6900, L506.1001, L509.3001, L3100.9000, L3100.8410, L100.0100, L3400.4800, L3410.2000, L506.0400, L3300.1500, L501.9985 ####[facility] [address] [place], [place], [id number] Anticardiolipin IgG, IgMon 0 - ANTICARDIO IgG < 9 Normal 0-14 [facility] Comment on above: Result Comment: Nega tive: <15 Indeterminate: 15 - 20 Low-Med Positive: >20 - 80 High Positive: >80 Performed By: #### L 501.9520, L4500.0100, L3300.6900, L506.1001, L509.3001, L3100.9000, L3100.8410, L100.0100, L3400.4800, L3410.2000, L506.0400, L3300.1500, L501.9985 ####[facility] [address] [place], [address] Anticardio.IgM < 9 Normal 0-12 [facility] Comment on above: Result Comment: Nega tive: <13 Indeterminate: 13 - 20 Low-Med Positive: >20 - 80 High Positive: >80 Performed By: #### L 501.9520, L4500.0100, L3300.6900, L506.1001, L509.3001, L3100.9000, L3100.8410, L100.0100, L3400.4800, L3410.2000, L506.0400, L3300.1500, L501.9985 ####[facility] [address] [place], [place], [address] Beta-2 Glycoprot IgG, A, 09-16-2024 B2 GLYCO I IGA <9 Normal 0-25 [facility] Comment on above: Result Comment: Resu lt Units: GPI IgA units The reference interval reflects a 3SD or 99th percentile interval, which is thought to represent a potentially clinically significant result in accordance with the International Consensus Statement on the classification criteria for definitive antiphospholipid syndrome (APS). J Thromb Haem 2006;4:295-306. Performed By: #### L 501.9520, L4500.0100, L3300.6900, L506.1001, L509.3001, L3100.9000, L3100.8410, L100.0100, L3400.4800, L3410.2000, L506.0400, L3300.1500, L501.9985 ####[facility] [address] [place], [place], [id number] B2 GLYCO I IGG <9 Normal 0-20 [facility] Comment on above: Result Comment: Resu lt Units: GPI IgG units The reference interval reflects a 3SD or 99th percentile interval, which is thought to represent a potentially clinically significant result in accordance with the International Consensus Statement on the classification criteria for definitive antiphospholipid syndrome (APS). J Thromb Haem 2006;4:295-306. Performed By: #### L 501.9520, L4500.0100, L3300.6900, L506.1001, L509.3001, L3100.9000, L3100.8410, L100.0100, L3400.4800, L3410.2000, L506.0400, L3300.1500, L501.9985 ####[facility] [address] [place], [address] B2 GLYCO I IGM <9 Normal 0-32 [facility] Comment on above: Result Comment: Resu lt Units: GPI IgM units The reference interval reflects a 3SD or 99th percentile interval, which is thought to represent a potentially clinically significant result in accordance with the International Consensus Statement on the classification criteria for definitive antiphospholipid syndrome (APS). J Thromb Haem 2006;4:295-306. Performed By: #### L 501.9520, L4500.0100, L3300.6900, L506.1001, L509.3001, L3100.9000, L3100.8410, L100.0100, L3400.4800, L3410.2000, L506.0400, L3300.1500, L501.9985 ####[facility] [address] [place], [place], [id number] DHEA Sulfateon 09-16-2024 DHEA SULFATE 143.0 ug/dL Normal 84.8-378.0 [facility] Comment on above: Order Comment: N Performed By: #### L 501.9520, L4500.0100, L3300.6900, L506.1001, L509.3001, L3100.9000, L3100.8410, L100.0100, L3400.4800, L3410.2000, L506.0400, L3300.1500, L501.9985 ####[facility] [address] [place], [place], [phone] Lupus Anticoagulant Compon 0 09-16-2024 aPTT Coag (Bld) [Time] 38.2 s Normal 0.0-43.5 [facility] Comment on above: Performed By: #### L 501.9520, L4500.0100, L3300.6900, L506.1001, L509.3001, L3100.9000, L3100.8410, L100.0100, L3400.4800, L3410.2000, L506.0400, L3300.1500, L501.9985 ####[facility] [address] [place], [place], [id number] DILUTE PT (dPT) 39.7 sec Normal 0.0-47.6 [facility] Comment on above: Performed By: #### L 501.9520, L4500.0100, L3300.6900, L506.1001, L509.3001, L3100.9000, L3100.8410, L100.0100, L3400.4800, L3410.2000, L506.0400, L3300.1500, L501.9985 ####[facility] [address] [place], [place], [phone] dPT Conf. Ratio 1.06 Ratio Normal 0.00-1.34 [facility] Comment on above: Performed By: #### L 501.9520, L4500.0100, L3300.6900, L506.1001, L509.3001, L3100.9000, L3100.8410, L100.0100, L3400.4800, L3410.2000, L506.0400, L3300.1500, L501.9985 ####[facility] [address] [place], [place], [id number] DRVVT 38.6 sec Normal 0.0-47.0 [facility] Comment on above: Performed By: #### L 501.9520, L4500.0100, L3300.6900, L506.1001, L509.3001, L3100.9000, L3100.8410, L100.0100, L3400.4800, L3410.2000, L506.0400, L3300.1500, L501.9985 ####[facility] [address] [place], [place], [phone] Interpretation Comment: Normal . [facility] Comment on above: Result Comment: No l upus anticoagulant was detected. Performed By: #### L 501.9520, L4500.0100, L3300.6900, L506.1001, L509.3001, L3100.9000, L3100.8410, L100.0100, L3400.4800, L3410.2000, L506.0400, L3300.1500, L501.9985 ####[facility] [address] [place], [place], [id number] THROMBIN TIME 18.1 sec Normal 0.0-23.0 [facility] Comment on above: Performed By: #### L 501.9520, L4500.0100, L3300.6900, L506.1001, L509.3001, L3100.9000, L3100.8410, L100.0100, L3400.4800, L3410.2000, L506.0400, L3300.1500, L501.9985 ####[facility] [address] [place], [place], [phone] Testosterone Freeon 09-16- 25 TESTOSTER FREE 0.9 pg/mL Normal 0.0-4.2 [facility] Comment on above: Performed By: #### L 501.9520, L4500.0100, L3300.6900, L506.1001, L509.3001, L3100.9000, L3100.8410, L100.0100, L3400.4800, L3410.2000, L506.0400, L3300.1500, L501.9985 ####[facility] [address] [place], [place], [id number] Thyroid Peroxidase ABon 06-2 THYR PEROX AB < 9 Normal 0-34 [facility] Comment on above: Result Comment: Perf ormed at: [facility] [address] [id number] Training And Development Rep: Carmelina Vinson MD, Phone: [phone] Performed at: [address] [id number] Training And Development Rep: Bubba Werner PhD, Phone: [phone] Performed By: #### L 501.9520, L4500.0100, L3300.6900, L506.1001, L509.3001, L3100.9000, L3100.8410, L100.0100, L3400.4800, L3410.2000, L506.0400, L3300.1500, L501.9985 ####[facility] [address] [place], [address] Absolute lymphocyte countOrd ered By: HEALTH ASSESSMENT on 09-13-2024 Lymphocytes Auto (Unsp spec) [#/Vol] 2.24 10*3/uL 0.83-4.51 [facility] Absolute neutrophil countOrd ered By: HEALTH ASSESSMENT on 09-13-2024 Neutrophils (Bld) [#/Vol] 4.9 10*3/uL 2.0-7.7 [facility] Absolute nucleated red blood cell countOrdered By: HEALTH ASSESSMENT on 09-13-2024 Nucleated RBC (Bld) [#/Vol] 0.00 10*3/uL 0- [facility] Anion gap in Serum or Plasma Ordered By: HEALTH ASSESSMENT on 09-13-2024 Anion gap [Moles/Vol] 13 mmol/L 08-03 [facility] BUN/creatinine ratioOrdered By: HEALTH ASSESSMENT on 09-13-2024 Urea nitrogen/Creatinine [Mass ratio] 22.1 mg/mg High 01-08 [facility] Bilirubin directOrdered By: HEALTH ASSESSMENT on 09-13-2024 Bilirubin.direct [Mass/Vol] 0.21 mg/dL 0.00-0.30 [facility] Bilirubin, totalOrdered By: HEALTH ASSESSMENT on 09-13-2024 Bilirubin [Mass/Vol] 0.39 mg/dL 0.00-1.30 [facility] CBC W/Diff, Automatedon 08-21 Absolute Neut Normal 2.0-7.7 [facility] Comment on above: Result Comment: IN E MPH LABS Performed By: #### L 501.9520, L4500.0100, L3300.6900, L506.1001, L509.3001, L3100.9000, L3100.8410, L100.0100, L3400.4800, L3410.2000, L506.0400, L3300.1500, L501.9985 ####[facility] [address] [place], [place], [id number] HCT Normal 37-47 [facility] Comment on above: Result Comment: IN E MPH LABS Performed By: #### L 501.9520, L4500.0100, L3300.6900, L506.1001, L509.3001, L3100.9000, L3100.8410, L100.0100, L3400.4800, L3410.2000, L506.0400, L3300.1500, L501.9985 ####[facility] [address] [place], [place], [phone]([phone] HGB Normal 12.0-15.0 [facility] Comment on above: Result Comment: IN E MPH LABS Performed By: #### L 501.9520, L4500.0100, L3300.6900, L506.1001, L509.3001, L3100.9000, L3100.8410, L100.0100, L3400.4800, L3410.2000, L506.0400, L3300.1500, L501.9985 ####[facility] [address] [place], [place], [id number] MCH Normal 27.0-32.0 [facility] Comment on above: Result Comment: IN E MPH LABS Performed By: #### L 501.9520, L4500.0100, L3300.6900, L506.1001, L509.3001, L3100.9000, L3100.8410, L100.0100, L3400.4800, L3410.2000, L506.0400, L3300.1500, L501.9985 ####[facility] [address] [place], [place], [phone] MCHC Normal 32-36 [facility] Comment on above: Result Comment: IN E MPH LABS Performed By: #### L 501.9520, L4500.0100, L3300.6900, L506.1001, L509.3001, L3100.9000, L3100.8410, L100.0100, L3400.4800, L3410.2000, L506.0400, L3300.1500, L501.9985 ####[facility] [address] [place], [address] MCV Normal 81-99 [facility] Comment on above: Result Comment: IN E MPH LABS Performed By: #### L 501.9520, L4500.0100, L3300.6900, L506.1001, L509.3001, L3100.9000, L3100.8410, L100.0100, L3400.4800, L3410.2000, L506.0400, L3300.1500, L501.9985 ####[facility] [address] [place], [address] NEUT% Normal 47-70 [facility] Comment on above: Result Comment: IN E MPH LABS Performed By: #### L 501.9520, L4500.0100, L3300.6900, L506.1001, L509.3001, L3100.9000, L3100.8410, L100.0100, L3400.4800, L3410.2000, L506.0400, L3300.1500, L501.9985 ####[facility] [address] [place], [address] PLT Normal 150-450 [facility] Comment on above: Result Comment: IN E MPH LABS Performed By: #### L 501.9520, L4500.0100, L3300.6900, L506.1001, L509.3001, L3100.9000, L3100.8410, L100.0100, L3400.4800, L3410.2000, L506.0400, L3300.1500, L501.9985 ####[facility] [address] [place], [address] RBC Normal 4.2-5.4 [facility] Comment on above: Result Comment: IN E MPH LABS Performed By: #### L 501.9520, L4500.0100, L3300.6900, L506.1001, L509.3001, L3100.9000, L3100.8410, L100.0100, L3400.4800, L3410.2000, L506.0400, L3300.1500, L501.9985 ####[facility] [address] [place], [place], [phone] RDW CV Normal 11.6-14.6 [facility] Comment on above: Result Comment: IN E MPH LABS Performed By: #### L 501.9520, L4500.0100, L3300.6900, L506.1001, L509.3001, L3100.9000, L3100.8410, L100.0100, L3400.4800, L3410.2000, L506.0400, L3300.1500, L501.9985 ####[facility] [address] [place], [place], [phone](318) RDW SD Normal 35.1-43.9 [facility] Comment on above: Result Comment: IN E MPH LABS Performed By: #### L 501.9520, L4500.0100, L3300.6900, L506.1001, L509.3001, L3100.9000, L3100.8410, L100.0100, L3400.4800, L3410.2000, L506.0400, L3300.1500, L501.9985 ####[facility] [address] [place], [place], [phone](888) WBC Normal 4.4-11.0 [facility] Comment on above: Result Comment: IN E MPH LABS Performed By: #### L 501.9520, L4500.0100, L3300.6900, L506.1001, L509.3001, L3100.9000, L3100.8410, L100.0100, L3400.4800, L3410.2000, L506.0400, L3300.1500, L501.9985 ####[facility] [address] [place], [address] CBC, Employeeon 09-13-2024 Absolute Lymph 2.24 X10 3/uL Normal 0.83-4.51 [facility] Comment on above: Performed By: #### L 400.0100, L500.2900, L100.0200 ####[facility] [address] [place], [address] Absolute Neut 4.9 X10 3/uL Normal 2.0-7.7 [facility] Comment on above: Performed By: #### L 400.0100, L500.2900, L100.0200 ####[facility] [address] [place], [address] Basophils/100 WBC (Bld) 0.3 % Normal 0-1 [facility] Comment on above: Performed By: #### L 400.0100, L500.2900, L100.0200 ####[facility] [address] [place], [address] Eosinophils/100 WBC (Bld) 1.5 % Normal 0-5 [facility] Comment on above: Performed By: #### L 400.0100, L500.2900, L100.0200 ####[facility] [address] [place], [address] Erythrocyte distribution width (RBC) [Ratio] 14.7 % High 11.6-14.6 [facility] Comment on above: Performed By: #### L 400.0100, L500.2900, L100.0200 ####[facility] [address] [place], [address] Hematocrit (Bld) [Volume fraction] 36.0 % Low 37-47 [facility] Comment on above: Performed By: #### L 400.0100, L500.2900, L100.0200 ####[facility] [address] [place], [address] Hemoglobin (Bld) [Mass/Vol] 11.3 g/dL Low 12.0-15.0 [facility] Comment on above: Performed By: #### L 400.0100, L500.2900, L100.0200 ####[facility] [address] [place], [address] Lymphocytes/100 WBC (Bld) 28.8 % Normal 19-41 [facility] Comment on above: Performed By: #### L 400.0100, L500.2900, L100.0200 ####[facility] [address] [place], [address] MCH (RBC) [Entitic mass] 24.6 pg Low 27.0-32.0 [facility] Comment on above: Performed By: #### L 400.0100, L500.2900, L100.0200 ####[facility] [address] [place], [address] MCHC (RBC) [Mass/Vol] 31.4 g/dL Low 32-36 [facility] Comment on above: Performed By: #### L 400.0100, L500.2900, L100.0200 ####[facility] [address] [place], [address] MCV (RBC) [Entitic vol] 78.4 fL Low 81-99 [facility] Comment on above: Performed By: #### L 400.0100, L500.2900, L100.0200 ####[facility] [address] [place], [address] Monocytes/100 WBC (Bld) 5.5 % Normal 0-10 [facility] Comment on above: Performed By: #### L 400.0100, L500.2900, L100.0200 ####[facility] [address] [place], [address] Neutrophils/100 WBC (Bld) 63.3 % Normal 47-70 [facility] Comment on above: Performed By: #### L 400.0100, L500.2900, L100.0200 ####[facility] [address] [place], [address] NRBC # 0.00 10 3/uL Normal 0-5 [facility] Comment on above: Performed By: #### L 400.0100, L500.2900, L100.0200 ####[facility] [address] [place], [id number] Nucleated RBC (Bld) [#/Vol] 0 10*3/uL Normal 0-5 [facility] Comment on above: Performed By: #### L 400.0100, L500.2900, L100.0200 ####[facility] [address] [place], [id number] Platelet mean volume (Bld) [Entitic vol] 9.5 fL Normal 6.2-12.0 [facility] Comment on above: Performed By: #### L 400.0100, L500.2900, L100.0200 ####[facility] [address] [place], [id number] Platelets (Bld) [#/Vol] 245 10*3/uL Normal 150-450 [facility] Comment on above: Performed By: #### L 400.0100, L500.2900, L100.0200 ####[facility] [address] [place], [id number] RBC (Bld) [#/Vol] 4.59 10*6/uL Normal 4.2-5.4 [facility] Comment on above: Performed By: #### L 400.0100, L500.2900, L100.0200 ####[facility] [address] [place], [address] RDW SD 41.5 fl Normal 35.1-43.9 [facility] Comment on above: Performed By: #### L 400.0100, L500.2900, L100.0200 ####[facility] [address] [place], [address] WBC (Bld) [#/Vol] 7.8 10*3/uL Normal 4.4-11.0 [facility] Comment on above: Performed By: #### L 400.0100, L500.2900, L100.0200 ####[facility] [address] [place], [place], [phone] Calculated very low density lipoprotein (VLDL) cholesterol measurementOrdered By: HEALTH ASSESSMENT on 09-13-2024 Calculated very low density lipoprotein (VLDL) cholesterol measurement 30 mg/dL 5-40 [facility] Carbon dioxide, total [Moles /volume] in Central venous bloodOrdered By: HEALTH ASSESSMENT on 09-13-2024 CO2 [Moles/Vol] 24.2 mmol/L 21.0-32.0 [facility] Chloride assayOrdered By: LEDA ALTH ASSESSMENT on 09-13-2024 Chloride [Moles/Vol] 100 mmol/L 98-108 [facility] Dilute Yousif's viper venom timeOrdered By: Yahaira Cardona on 09-13-2024 Maureen Coag (PPP) [Time] 38.6 s 0.0-47.0 [facility] Employee Profileon Cholesterol in LDL [Mass/Vol] 107 mg/dL Normal 0-130 [facility] Comment on above: Order Comment: SEND CMP,LIPID,CBCD, TO Performed By: #### L 400.0100, L500.2900, L100.0200 ####[facility] [address] [place], [place], [id number] Erythrocyte distribution wid th ratioOrdered By: HEALTH ASSESSMENT on 09-13-2024 Erythrocyte distribution width (RBC) [Ratio] 14.7 % High 11.6-14.6 [facility] Erythrocyte distribution wid th standard deviationOrdered By: HEALTH ASSESSMENT on 09-13-2024 Erythrocyte distribution width (RBC) [Ratio] 41.5 fl 35.1-43.9 [facility] Glomerular filtration rate ( GFR) estimation/1.73 sq m using serum, plasma, or whole bOrdered By: HEALTH ASSESSMENT on 09-13-2024 GFR/1.73 sq M.predicted among non-blacks MDRD (S/P/Bld) [Vol rate/Area] 123 mL/min/{1.73_m2} >60 [facility] Comment on above: mL/min/1.73m2 CKD-EP I Creatinine Equation (2020) Hematocrit Auto (Bld) [Volum e fraction]Ordered By: HEALTH ASSESSMENT on 09-13-2024 Hematocrit (Bld) [Volume fraction] 36.0 % Low 37-47 [facility] Hemoglobin A1con 09-13-2024 HbA1c (Bld) [Mass fraction] 5.6 % Normal <=5.6 [facility] Comment on above: Result Comment: Norm al < 5.7 % Prediabetic 5.7 - 6.4 % Diabetic >or= 6.5 % Please note range changes. Performed By: #### L 501.9520, L4500.0100, L3300.6900, L506.1001, L509.3001, L3100.9000, L3100.8410, L100.0100, L3400.4800, L3410.2000, L506.0400, L3300.1500, L501.9985 ####[facility] [address] [place], [place], [address] Hemoglobin A1c percentageOrd ered By: Yahaira Cardona on 09-13-2024 HbA1c (Bld) [Mass fraction] 5.6 % <5.7 [facility] Comment on above: Normal < 5.7 % Predi abetic 5.7 - 6.4 % Diabetic >or= 6.5 % Please note range changes. Hemoglobin measurementOrdere d By: HEALTH ASSESSMENT on 09-13-2024 Hemoglobin (Bld) [Mass/Vol] 11.3 g/dL Low 12.0-15.0 [facility] L509.3001on 09-13-2024 Testosterone [Mass/Vol] 37.50 ng/dL Normal - [facility] Comment on above: Performed By: #### L 501.9520, L4500.0100, L3300.6900, L506.1001, L509.3001, L3100.9000, L3100.8410, L100.0100, L3400.4800, L3410.2000, L506.0400, L3300.1500, L501.9985 ####[facility] [address] [place], [address] Laboratory - Chemistry and C hemistry - challengeOrdered By: Yahaira Cardona on 09-13-2024 Testosterone [Mass/Vol] 37.50 ng/dL [facility] Laboratory - Chemistry and C hemistry - challengeOrdered By: HEALTH ASSESSMENT on 09-13-2024 AST [Catalytic activity/Vol] 21 U/L <32 [facility] Lactate dehydrogenase (LDH) measurementOrdered By: HEALTH ASSESSMENT on 09-13-2024 LDH [Catalytic activity/Vol] 143 U/L 84-246 [facility] MCV (mean corpuscular volume ) determinationOrdered By: HEALTH ASSESSMENT on 09-13-2024 MCV (RBC) [Entitic vol] 78.4 fL Low 81-99 [facility] Mean corpuscular hemoglobin (MCH) determinationOrdered By: HEALTH ASSESSMENT on 09-13-2024 MCH (RBC) [Entitic mass] 24.6 pg Low 27.0-32.0 [facility] Mean corpuscular hemoglobin concentration (MCHC) determinationOrdered By: HEALTH ASSESSMENT on 09-13-2024 MCHC (RBC) [Mass/Vol] 31.4 g/dL Low 32-36 [facility] Mean platelet volume determi nationOrdered By: HEALTH ASSESSMENT on 09-13-2024 Platelet mean volume (Bld) [Entitic vol] 9.5 fL 6.2-12.0 [facility] Neutrophil percentageOrdered By: HEALTH ASSESSMENT on 09-13-2024 Neutrophils/100 WBC (Bld) 63.3 % 47-70 [facility] Nucleated red blood cell per centageOrdered By: HEALTH ASSESSMENT on 09-13-2024 Nucleated RBC/100 WBC (Bld) [Ratio] 0 % 0-5 [facility] Platelet countOrdered By: HE ALTH ASSESSMENT on 09-13-2024 Platelets (Bld) [#/Vol] 245 10*3/uL 150-450 [facility] Potassium measurement (mass/ volume)Ordered By: HEALTH ASSESSMENT on 09-13-2024 Potassium (Unsp spec) [Mass/Vol] 3.6 mmol/L 3.3-5.1 [facility] RBC Auto (Bld) [#/Vol]Ordere d By: HEALTH ASSESSMENT on 09-13-2024 RBC (Bld) [#/Vol] 4.59 10*6/uL 4.2-5.4 [facility] Screening total cholesterol/ high density lipoprotein (HDL) cholesterol ratioOrdered By: HEALTH ASSESSMENT on 09-13-2024 Cholesterol.total/Chol esterol in HDL [Mass ratio] 3.95 {ratio} [facility] Serum beta 2 glycoprotein 1 IgA antibody detectionOrdered By: Yahaira Cardona on 09-13-2024 Beta 2 glycoprotein 1 IgA Ql (S) <9 0-25 [facility] Comment on above: Result Units: GPI Ig A unitsThe reference interval reflects a 3SD or 99th percentileinterval, which is thought to represent a potentiallyclinically significant result in accordance with theInternational Consensus Statement on the classificationcriteria for definitive antiphospholipid syndrome (APS). JThromb Haem 2006;4:295-306. Serum beta 2 glycoprotein 1 IgG antibody detectionOrdered By: Yahaira Cardona on 09-13-2024 Beta 2 glycoprotein 1 IgG Ql (S) <9 0-20 [facility] Comment on above: Result Units: GPI Ig G unitsThe reference interval reflects a 3SD or 99th percentileinterval, which is thought to represent a potentiallyclinically significant result in accordance with theInternational Consensus Statement on the classificationcriteria for definitive antiphospholipid syndrome (APS). JThromb Haem 2006;4:295-306. Serum beta 2 glycoprotein 1 IgM antibody detectionOrdered By: Yahaira Cardona on 09-13-2024 Beta 2 glycoprotein 1 IgM Ql (S) <9 0-32 [facility] Comment on above: Result Units: GPI Ig M unitsThe reference interval reflects a 3SD or 99th percentileinterval, which is thought to represent a potentiallyclinically significant result in accordance with theInternational Consensus Statement on the classificationcriteria for definitive antiphospholipid syndrome (APS). JThromb Haem 2006;4:295-306. Serum cardiolipin IgG antibo dy assay by immunoassay (units/volume)Ordered By: Yahaira Cardona on 09-13-2024 Cardiolipin IgG IA Qn (S) < 9 GPL U/mL 0-14 [facility] Comment on above: Negative: <15 Indete rminate: 15 - 20 Low-Med Positive: >20 - 80 High Positive: >80 Serum creatinine measurement (mass/volume)Ordered By: HEALTH ASSESSMENT on 09-13-2024 Creatinine [Mass/Vol] 0.61 mg/dL Low 0.70-1.20 [facility] Serum globulin measurementOr dered By: HEALTH ASSESSMENT on 09-13-2024 Globulin (S) [Mass/Vol] 3.6 g/dL 2.2-4.2 [facility] Serum glucose measurement (m ass/volume)Ordered By: HEALTH ASSESSMENT on 09-13-2024 Glucose [Mass/Vol] 94 mg/dL 70-99 [facility] Serum or plasma 17-hydroxypr ogesterone measurement (mass/volume)Ordered By: Yahaira Cardona on 09-13-2024 17-Hydroxyprogesterone [Mass/Vol] 33 ng/dL . [facility] Comment on above: Adult Female Follicu lar 15 - 70 Luteal 35 - 290Performed at: - [facility] [address] [id number] Director: Carmelina Vinson MD, Phone: [phone] Serum or plasma alanine alfaro otransferase (ALT) measurementOrdered By: HEALTH ASSESSMENT on 09-13-2024 ALT [Catalytic activity/Vol] 21 U/L <35 [facility] Serum or plasma albumin shen urement (mass/volume)Ordered By: HEALTH ASSESSMENT on 09-13-2024 Albumin [Mass/Vol] 4.3 g/dL 3.5-5.0 [facility] Serum or plasma albumin/glob ulin mass ratioOrdered By: HEALTH ASSESSMENT on 09-13-2024 Albumin/Globulin [Mass ratio] 1.2 {ratio} 0.9-2.4 [facility] Serum or plasma alkaline ayush sphatase measurementOrdered By: HEALTH ASSESSMENT on 09-13-2024 ALP [Catalytic activity/Vol] 122 U/L High 35-104 [facility] Serum or plasma calcium shen urement (mass/volume)Ordered By: HEALTH ASSESSMENT on 09-13-2024 Calcium [Mass/Vol] 9.9 mg/dL 7.6-11.0 [facility] Serum or plasma cholesterol in HDL measurement (mass/volume)Ordered By: HEALTH ASSESSMENT on 09-13-2024 Cholesterol in HDL [Mass/Vol] 47 mg/dL >40 [facility] Comment on above: National Cholesterol Education Program (NCEP) guidelines:<40 mg/dL: Low HDL-cholesterol (major risk factor for CHD)>= 60 mg/dL: High HDL-cholesterol (negative risk factor for CHD)HDL-cholesterol is affected by a number of factors, e.g. smoking, exercise, hormones, sex and age. Serum or plasma cholesterol in LDL measurement (mass/volume)Ordered By: HEALTH ASSESSMENT on 09-13-2024 Cholesterol in LDL [Mass/Vol] 107 mg/dL 0-130 [facility] Serum or plasma cholesterol measurement (mass/volume)Ordered By: HEALTH ASSESSMENT on 09-13-2024 Cholesterol [Mass/Vol] 184 mg/dL <201 [facility] Comment on above: Cholesterol level, D esirable <200 mg/dLBorderline high cholesterol 200-239 mg/dLHigh cholesterol >=240 mg/dLRecommendations of the NCEP Adult Treatment Panel for the following risk-cutoff thresholds for the [place] population. Serum or plasma free testost erone measurement (mass/volume)Ordered By: Yahaira Cardona on 09-13-2024 Testosterone Free [Mass/Vol] 0.9 pg/mL 0.0-4.2 [facility] Serum or plasma thyroperoxid ase antibody assay (units/volume)Ordered By: Yahaira Cardona on 09-13-2024 TPO Ab Qn [IU]/mL 0-34 [facility] Comment on above: Performed at: [address] [id number] Director: Carmelina Vinson MD, Phone: [phone] at: CB - [facility] [address] [id number] Director: Bubba Werner PhD, Phone: [phone] Serum or plasma urea nitroge n measurement (mass/volume)Ordered By: HEALTH ASSESSMENT on 09-13-2024 Urea nitrogen [Mass/Vol] 14 mg/dL 4-19 [facility] Serum or plasma uric acid me asurement (mass/volume)Ordered By: HEALTH ASSESSMENT on 09-13-2024 Urate [Mass/Vol] 4.6 mg/dL 2.6-6.0 [facility] Comment on above: The drugs N-Acetylcy steine and Metamizole may falsely depress this assay. Sodium levelOrdered By: HEAL ASSESSMENT on 09-13-2024 Sodium [Moles/Vol] 137 mmol/L 133-145 [facility] T4 Free Directon 09-13-2024 T4 FREE DIRECT 0.90 ng/dL Normal 0.76-1.46 [facility] Comment on above: Performed By: #### L 501.9520, L4500.0100, L3300.6900, L506.1001, L509.3001, L3100.9000, L3100.8410, L100.0100, L3400.4800, L3410.2000, L506.0400, L3300.1500, L501.9985 ####[facility] [address] [place], [place], [id number] T4 freeOrdered By: Yahaira kinney on 09-13-2024 Free T4 [Mass/Vol] 0.90 ng/dL 0.76-1.46 [facility] TSH DL <= 0.005 mIU/L QnOrde red By: Yahaira Cardona on 09-13-2024 TSH Qn 3.210 uIU/mL 0.300-4.200 [facility] Thrombin timeOrdered By: Hawk Cardona on 09-13-2024 Thrombin time Coag (PPP) [Time] 18.1 sec 0.0-23.0 [facility] Thyroid Stim Hormone (TSH)on 09-13-2024 TSH 3.210 uIU/mL Normal 0.300-4.200 [facility] Comment on above: Performed By: #### L 501.9520, L4500.0100, L3300.6900, L506.1001, L509.3001, L3100.9000, L3100.8410, L100.0100, L3400.4800, L3410.2000, L506.0400, L3300.1500, L501.9985 ####[facility] [address] [place], [address] Total proteinOrdered By: [facility]A [facility] ASSESSMENT on 09-13-2024 Protein [Mass/Vol] 7.9 g/dL 5.9-8.4 [facility] Triglycerides measurementOrd ered By: HEALTH ASSESSMENT on 09-13-2024 Triglyceride [Mass/Vol] 150 mg/dL <199 [facility] Comment on above: The drugs N-Acetylcy steine and Metamizole may falsely depress this assay. Normal range: <150 mg/dLBorderline High: 150-199 mg/dLHigh: 200-499 mg/dLVery High: >500 mg/dL Urinalysis, Employeeon 09-13 BILIRUBIN URINE Normal Negative [facility] Comment on above: Order Comment: Urine , Random Result Comment: PT R EFUSED Performed By: #### L 400.0100, L500.2900, L100.0200 #### [facility] [address] [place], [address] Clarity (U) Normal Clear [facility] Comment on above: Order Comment: Urine , Random Result Comment: PT R EFUSED Performed By: #### L 400.0100, L500.2900, L100.0200 #### [facility] [address] [place], [address] Color (U) Normal Yellow [facility] Comment on above: Order Comment: Urine , Random Result Comment: PT R EFUSED Performed By: #### L 400.0100, L500.2900, L100.0200 #### [facility] [address] [place], [address] GLUCOSE, UR Normal Normal [facility] Comment on above: Order Comment: Urine , Random Result Comment: PT R EFUSED Performed By: #### L 400.0100, L500.2900, L100.0200 #### [facility] [address] [place], [address] KETONE UR Normal Negative [facility] Comment on above: Order Comment: Urine , Random Result Comment: PT R EFUSED Performed By: #### L 400.0100, L500.2900, L100.0200 #### [facility] [address] [place], [address] LEUK ESTERASE Normal Negative [facility] Comment on above: Order Comment: Urine , Random Result Comment: PT R EFUSED Performed By: #### L 400.0100, L500.2900, L100.0200 #### [facility] [address] [place], [id number] Nitrite Ql (U) Normal Negative [facility] Comment on above: Order Comment: Urine , Random Result Comment: PT R EFUSED Performed By: #### L 400.0100, L500.2900, L100.0200 #### [facility] [address] [place], [id number] OCCULT BLOOD-UR Normal Negative [facility] Comment on above: Order Comment: Urine , Random Result Comment: PT R EFUSED Performed By: #### L 400.0100, L500.2900, L100.0200 #### [facility] Laboratory [address] [place], [address] pH UR Normal 5.0 - 8.0 [facility] Comment on above: Order Comment: Urine , Random Result Comment: PT R EFUSED Performed By: #### L 400.0100, L500.2900, L100.0200 #### [facility] Laboratory [address] [place], [address] PROT DIPSTX Normal Negative [facility] Comment on above: Order Comment: Urine , Random Result Comment: PT R EFUSED Performed By: #### L 400.0100, L500.2900, L100.0200 #### [facility] Laboratory [address] [place], [address] SP.GR. DIPSTX Normal 1.002-1.030 [facility] Comment on above: Order Comment: Urine , Random Result Comment: PT R EFUSED Performed By: #### L 400.0100, L500.2900, L100.0200 #### [facility] Laboratory [address] [place], [address] UR Preservative Normal [facility] Comment on above: Order Comment: Urine , Random Result Comment: PT R EFUSED Performed By: #### L 400.0100, L500.2900, L100.0200 #### [facility] Laboratory [address] [place], [address] UROBILI Normal Normal [facility] Comment on above: Order Comment: Urine , Random Result Comment: PT R EFUSED Performed By: #### L 400.0100, L500.2900, L100.0200 #### [facility] Laboratory [address] [place], [address] Vitamin D,25 Hydroxyon 09-13 Vitamin D 25-OH 18.0 ng/mL Low 30-100 [facility] Comment on above: Result Comment: Elsie min D Status Deficiency: <20 ng/mL (50nmol/L) Insufficiency: 20-30 ng/mL (50-75 nmol/L) Sufficiency: 30-100 ng/mL (75-250 nmol/L) Toxicity: >100 ng/mL (>250 nmol/L) Performed By: #### L 501.9520, L4500.0100, L3300.6900, L506.1001, L509.3001, L3100.9000, L3100.8410, L100.0100, L3400.4800, L3410.2000, L506.0400, L3300.1500, L501.9985 ####[facility] [address] [place], [address] White blood cell (WBC) count Ordered By: HEALTH ASSESSMENT on 09-13-2024 WBC (Bld) [#/Vol] 7.8 10*3/uL 4.4-11.0 [facility] Piano Technician Office Visit Reporton 09-12-2024 Piano Technician Office Visit Report [facility] Women's [address], [address] [place] [address] OFFICE VISIT Date of Service: 09/12/24 MR#: [id number] Acct: [id number] Name: GUS WRIGHT Rep #: [id number] : 1995 Provider: Dr. 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 Operator Required: No Is patient in pain?: No Allergies cinnamon Allergy (Mild, Verified 09/12/24 08:27) Anaphylaxis nickel Allergy (Mild, Verified 09/12/24 08:27) Rash acetaminophen (From [facility]) Adverse Reaction (Mild, Verified 09/12/24 08:27) Vomiting hydrocodone (From [facility]) Adverse Reaction (Mild, Verified 09/12/24 08:27) Vomiting Medications ???Medication ???Instructions ???Recorded ???Confirmed ???Type lamotrigine 25 mg tablet 50 mg PO DAILY 12/02/23 09/12/24 H istory sertraline 100 mg tablet 150 mg PO Q24H 12/02/23 09/12/24 H istory hydroxyzine HCl 25 mg tablet 25 mg PO BID PRN 09/12/24 09/12/24 History Is last menstrual period known: Yes Last Menstrual Period: 08/20/24 (periods are irregular and has spotting in between) Post menopausal: No Patient : No : No [facility] Medical History (Updated 09/12/24 @ 09:07 by [...] 1 current occupational status: employed 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 Last PAP: 2023 - normal History of abnormal PAP: no severe Last mammogram: not due History of abnormal mammogram: Colon cancer screening: not due Other preventative health care screenings: PCP Laci at [facility]. Female Reproductive History Last Menstrual Period: 08/20/24 (periods are irregular and has spotting in between) Cycle Length: 21-35 Bleeding Duration: 7 Questions: metorrhagia: Yes, sexually active: Yes, dyspareunia: No and PCB: Yes Menopausal Symptoms: No hot flashes, Yes night sweats, No weight change, No mood changes, No difficulty concentrating, No sleep problems and [...] acute distress, well developed and well groomed HENMT Head: normal to inspect (more content not included)... Normal [facility] Office Visit Reporton [address] [facility] Services [address] [place] [address] OFFICE VISIT Date of Service: 02/07/24 MR#: [id number] Acct: [id number] Patient: GUS WRIGHT Rep #: [id number] : 1995 Provider: ENEDELIA Perez Age/Sex: 28/F [place] [facility] Status: Signed Employer Purchased Covid Test Note: Patient here today for Covid Testing, requested by their Employer. Assessment and Plan Assessment and Plan Orders: Orders POC Cepheid Covid, FluAB, RSV 02/07/24 02/24/24 0642 Date Adrian MCDANIELS Cosigner Signature: Date (if applicable) CC: Normal [facility] HIV - WCHon 02-21-2024 HIV Non-Reactive Normal Nonreactive [facility] Comment on above: Order Comment: Has p t arrived? Y Reason for Exam: ED Expose Person Protocol Performed By: #### L 3890.6005, L3890.6200, L3890.6300, L3890.6100 #### [facility] Laboratory [address] [place], [place], [address] Hepatitis B Surface Antibody on 02-21-2024 HEP B Surf Ab Reactive Normal [facility] Comment on above: Order Comment: Has p t arrived? Y Reason for Exam: ED Expose Person Protocol Result Comment: Non Reactive: Inconsistent with immunity less than <10 mIU/mL Reactive: Consistent with immunity greater than or equal to 10 mIU/mL Performed By: #### L 3890.6005, L3890.6200, L3890.6300, L3890.6100 #### [facility] Laboratory [address] [place], [place], [address] Hepatitis B Surface Antigeno n 02-21-2024 HEP B Surf Ag Non-Reactive Normal Nonreactive [facility] Comment on above: Order Comment: Has p t arrived? Y Reason for Exam: ED Expose Person Protocol Performed By: #### L 3890.6005, L3890.6200, L3890.6300, L3890.6100 #### [facility] Laboratory [address] [place], [place], [address] Hepatitis C Antibodyon 02-20 Hepatitis C AB Non-Reactive Normal Nonreactive [facility] Comment on above: Order Comment: Has p t arrived? Y Reason for Exam: ED Expose Person Protocol Result Comment: Non Reactive: < 0.8 Equivocal: >/= 0.8 to < 1.0 Reactive: >/= 1.0 The CDC requires that a reactive/equivocal HCV antibody result be sent out for confirmation. HCV Quant by PCR testing. Performed By: #### L 3890.6005, L3890.6200, L3890.6300, L3890.6100 #### [facility] Laboratory [address] [place], [address] Chest PA and Lateralon 02-06 Chest PA and Lateral [facility] Imaging Services [address] [place], [place] [address] Chest PA and Lateral MR#: [id number] Acct: [id number] Name: GUS WRIGHT Rep #: [id number] : 1995 F 28 From: Adriano jauregui MD PCP: Care Physician,No Primary Status: REG CL Study: Chest PA and Lateral Date of Exam: 02/07/24 Exam# [id number] Ordering Dr: Narendra Crouch [id number] STUDY: X-RAY CHEST REASON FOR EXAM: Female, [...] Signed: Adriano Hassan MD at 10:12 EST , CC: No Primary Care Physician; ENEDELIA Grant Oil Well Logger: Signed Normal [facility] Office Visit Reporton [address] [facility] Services [address] [place] [address] OFFICE VISIT Date of Service: 02/07/24 MR#: [id number] Acct: [id number] Patient: GUS WRIGHT Rep #: [id number] : 1995 Provider: ENEDELIA ePrez Age/Sex: 28/F Location[place] [facility] Status: Signed Employer Purchased Covid Test Note: Patient here today for Covid Testing, requested by their Employer. Assessment and Plan Assessment and Plan Orders: Orders POC Cepheid Covid, FluAB, RSV Today 02/10/24 0731 Date Adrian MCDANIELS Cosigner Signature: Date (if applicable) CC: Normal [facility] Urgent Care Visit Reporton 1 04-08-2023 Urgent Care Visit Report [facility] [address], [address] [place] [address] OFFICE VISIT Date of Service: 02/07/24 MR#: [id number] Acct: [id number] Name: GUS WRIGHT Rep #: [id number] : 1995 Provider: ENEDELIA Grant Age/Sex: 28/F Location[place] [facility] Status: Signed Intake Vital Signs 12/02/23 15:20 Height 5 ft 2 in Intake Visit Reasons: CHEST KASSI/SINUS COMPLAIN/ST/R EAR PAIN/COUGH Chief Complaint: chest congest, ST, cough, ear pain, yellow mucus Allergies cinnamon Allergy (Mild, Verified 02/07/24 09:30) Anaphylaxis nickel Allergy (Mild, Verified 02/07/24 09:30) Rash acetaminophen (From [facility]) Adverse Reaction (Mild, Verified 02/07/24 09:30) Vomiting hydrocodone (From [facility]) Adverse Reaction (Mild, Verified 02/07/24 09:30) Vomiting PFSH Medical History (Updated 02/07/24 @ 09:32 by [...] cough, ear pain, yellow mucus Details: GUS WRIGHT, is a 28 F who presents to the office today for initial evaluation at the [facility] for approximately 3-week history of sinus congestion, irritated/sore throat with purulent yellow postnasal drip, cough, and nausea. No complaints of chest pressure or shortness of breath or dyspnea on exertion. No complaints of fever, chills, sweats. No mtbr-hpb-vqtcubm products taken to assist. Requesting POC Cepheid screening as well as chest x-ray as she is concerned for pneumonia. Non-smoker. No other associated symptoms and no other alleviating/aggravating factors. ROS Const Constitutional: No other (As [...] and Plan (more content not included)... Normal [facility] Emergency Department Summary on 12-02-2023 Emergency Department Summary [facility] Medical Records Department [address] [place] [address] Emergency Department Summary 12/02/23 MR#: [id number] Acct: [id number] Name: GUS WRIGHT Rep #: [id number] : 1995 27 From: Chilo Meléndez DO [...] changes. She has had a prior appendectomy. [facility] Medical History (Updated 12/02/23 @ 15:41 [...] Mild Rash Verified 12/02/23 15:22 acetaminophen (From [facility]) AdvReac Mild Vomiting Verified 12/02/23 15:22 hydrocodone (From [facility]) AdvReac Mild Vomiting Verified 12/02/23 15:22 Social History Smoking Status: Never smoker [facility] ED Constitutional Constitutional ED: Denies chills, fever(s) [...] the p (more content not included)... Normal [facility] THIN PREP with HPV REFLEX C U or SILon 06-29-2023 . . Normal [facility] Comment on above: Result Comment: Perf ormed at: [facility] Performed By: #### T PHRAS #### Performed for [facility] [address] [address] . Comment Normal [facility] Comment on above: Result Comment: The HPV DNA reflex criteria were not met with this specimen result therefore, no HPV testing was performed. . Performed at: [facility] Performed By: #### T PHRAS #### Performed for [address] [address] DIAGNOSIS: Comment Normal [facility] Comment on above: Result Comment: NEGA TIVE FOR INTRAEPITHELIAL LESION OR MALIGNANCY. Performed at: [facility] Performed By: #### T PHRAS #### Performed for [address] [address] Note: Comment Normal [facility] Comment on above: Result Comment: The Pap [...] By: #### T PHRAS #### Performed for [place] [address] Performed by: Comment Normal [facility] Comment on above: Result Comment: Letha Yoder Oil Change Technician (ASCP) Performed at: [facility] Performed By: #### T PHRAS #### Performed for [place] [address] Specimen adequacy: Comment Normal [facility] Comment on above: Result Comment: Sati sfactory for evaluation. Endocervical and/or squamous metaplastic cells (endocervical component) are present. Performed at: [facility] Performed By: #### T PHRAS #### Performed for [address] [address] Test Methodology: Comment Normal [facility] Comment on above: Result Comment: This liquid based ThinPrep(R) pap test was screened with the use of an image guided system. Performed at: [facility] Performed By: #### T PHRAS #### Performed for [address] [address] THYROID Abs PANELon 06-25-19 24 Thyroglobulin Antibody <1.0 Normal 0.0-0.9 [facility] Comment on above: Result Comment: Thyr oglobulin Antibody measured by Halley Renny Methodology . It should be noted that the presence of thyroglobulin antibodies may not be pathogenic nor diagnostic, especially at very low levels. The assay commissioner of internal revenue has found that four percent of individuals without evidence of thyroid disease or autoimmunity will have positive TgAb levels up to 4 IU/mL. Performed By: #### T HYAB #### Performed for [place] [address] [address] Thyroid Peroxidase (TPO) Ab <9 Normal 0-34 [facility] Comment on above: Performed By: #### T HYAB #### Performed for [address] [address] FREE T3on 06-24-2023 Free T3 [Mass/Vol] 3.48 pg/mL Normal 2.18-3.98 [facility] Comment on above: Performed By: #### 3 051-0, 3024-7, 08166-9 #### [facility] [address] [place] [address] Power System Electrical Engineer - Teresa [facility] [id number] FREE T4on 06-24-2023 Free T4 [Mass/Vol] 0.94 ng/dL Normal 0.76-1.46 [facility] Comment on above: Performed By: #### 3 051-0, 3024-7, 97319-3 #### [address] [place] [address] Power System Electrical [facility] [id number] TSH DL <= 0.05 mIU/L Qnon TSH Qn 2.340 uIU/mL Normal 0.358-3.740 [facility] Comment on above: Performed By: #### 3 051-0, 3024-7, 89443-6 #### [facility] [address] [place], [place] [address] [place] [address] Power System Electrical Engineer - [facility] [id number] ANKLE RIGHT COMPLETEon 05-13 ANKLE RIGHT COMPLETE EXAM: ANKLE RIGHT C OMPLETE HISTORY: UNSPECIFIED INJURY OF RIGHT ANKLE, SEQUELA COMPARISON: None. TECHNIQUE: AP, oblique, lateral views FINDINGS: There is no acute fracture or joint dislocation. The ankle mortise is intact on these nonstress views. The talar dome is unremarkable. No soft tissue abnormality is evident. IMPRESSION: No acute fracture or traumatic malalignment. Normal [facility] FOOT RIGHT COMPLETEon 2023 FOOT RIGHT COMPLETE EXAM: FOOT RIGHT COM PLETE HISTORY: Pain. COMPARISON: None. TECHNIQUE: AP, oblique, lateral views FINDINGS: There is no acute fracture or joint dislocation. The joint spaces are intact. Lisfranc alignment is preserved. No soft tissue abnormality is evident. IMPRESSION: No acute fracture. Normal [facility] HEALTH FAIR A1Con 01-16-2023 Average glucose Estimated from glycated hemoglobin (Bld) [Mass/Vol] 105 mg/dL Normal 68-125 [facility] Comment on above: Performed By: #### H FA1C #### [facility] [address] [place] [address] Power System Electrical Engineer - Teresa LOPEZ [id number] HA1C A1C INTERPRETATION % A1c (NGSP) Interpretation 3.8 - 6.4 Non-Diabetic Range 5.7 - 6.4 Prediabetic >6.5 Action Suggested The eAG (estimated average glucose) is an estimation of one?s average blood glucose level, calculated based on A1C test results, reported using the same units (mg/dL) seen on blood glucose meters. Normal [facility] Comment on above: Performed By: #### H FA1C #### [facility] [address] [place] [address] Power System Electrical Engineer - Teresa LOPEZ [id number] HbA1c (Bld) [Mass fraction] 5.3 %A1C Normal 4.2-6.3 [facility] Comment on above: Performed By: #### H FA1C #### [facility] [address] [place] [address] Power System Electrical Engineer - Teresa LOPEZ [id number] Lipid panel with direct LDLo n 01-16-2023 Cholesterol [Mass/Vol] 189 mg/dL Normal <=200 [facility] Comment on above: Performed By: #### 5 7698-3 #### [facility] [address] [place] [address] Power System Electrical Engineer - Teresa AGEEIA [id number] Cholesterol in HDL [Mass/Vol] 62 mg/dL High 40-59 [facility] Comment on above: Performed By: #### 5 7698-3 #### [facility] [address] [place] [address] Power System Electrical Engineer - Teresa AGEEIA [id number] Cholesterol in LDL [Mass/Vol] 105 mg/dL High 5-100 [facility] Comment on above: Performed By: #### 5 7698-3 #### [facility] [address] [place] [address] Power System Electrical Engineer - Teresa AGEEIA [id number] Cholesterol in LDL/Cholesterol in HDL [Mass ratio] 1.7 {ratio} Normal [facility] Comment on above: Performed By: #### 5 7698-3 #### [facility] [address] [place] [address] Power System Electrical Engineer - Teresa AGEEIA [id number] Cholesterol.total/Chol esterol in HDL [Mass ratio] 3.0 {ratio} Normal [facility] Comment on above: Performed By: #### 5 7698-3 #### [facility] [address] [place] [address] Power System Electrical Engineer - Teresa AGEEIA [id number] HCHOL CHOLESTEROL INTERPRE TATION Desirable <200 Borderline High 200-239 High >240 Normal [facility] Comment on above: Performed By: #### 5 7698-3 #### [facility] [address] [place] [address] Power System Electrical Engineer - Teresa LOPEZ [id number] HLDL LDL INTERPRETATION Desirable <100 Near Optimal 100-129 Borderline High 130-159 High 160-190 Very High >190 Normal [facility] Comment on above: Performed By: #### 5 7698-3 #### [facility] [address] [place] [address] Power System Electrical Engineer - Teresa AGEEIA [id number] HLIPID ATEROSCLEROSIS RISK FACTORS FOR LDL, HDL, AND CHOLESTEROL RISK FACTOR SEX LDL/HDL CHOL/HDL 1/2 Average M 1.00 3.43 F 1.47 3.27 Average M 3.55 4.97 F 3.22 4.44 2X Average M 6.25 9.55 F 5.03 7.05 3X Average M 7.99 23.39 F 6.14 11.04 Normal [facility] Comment on above: Performed By: #### 5 7698-3 #### [place] [address] Power System Electrical Engineer - Teresa LOPEZ [id number] HTRIG TRIGLYCERIDES INTERPRETATION Normal <150 Borderline High 150-199 High 200-499 Very High >500 Normal [facility] Comment on above: Performed By: #### 5 7698-3 #### [place] [address] Power System Electrical Engineer - Teresa LOPEZ [id number] Triglyceride [Mass/Vol] 106 mg/dL Normal <=150 [facility] Comment on above: Performed By: #### 5 7698-3 #### [place] [address] Power System Electrical Engineer - Teresa LOPEZ [id number] Vital Signs Date Time Vital Sign Value Performing Clinician Facility 10-09-2024 07:59-0400 Body height 157.48 cm No Primary Care Physician [facility] 10-09-2024 07:59-0400 Body mass index (BMI) [Ratio] 45.4 kg/m2 No Primary Care Physician [facility] 10-09-2024 07:59-0400 Body temperature 97.2 [degF] No Primary Care Physician [facility] 10-09-2024 07:59-0400 Body weight 112.66 kg No Primary Care Physician [facility] 10-09-2024 07:59-0400 Diastolic blood pressure 84 mm[Hg] No Primary Care Physician [facility] 10-09-2024 07:59-0400 Heart rate 82 /min No Primary Care Physician [facility] 10-09-2024 07:59-0400 Respiratory rate 18 /min No Primary Care Physician [facility] 10-09-2024 07:59-0400 SaO2% (BldA) [Mass fraction] 99 % No Primary Care Physician [facility] 10-09-2024 07:59-0400 Systolic blood pressure 132 mm[Hg] No Primary Care Physician [facility] 09-12-2024 08:24-0400 Body height 157.48 cm No Primary Care Physician [facility] 09-12-2024 08:24-0400 Body mass index (BMI) [Ratio] 44.9 kg/m2 No Primary Care Physician [facility] 09-12-2024 08:24-0400 Body weight 111.58 kg No Primary Care Physician [facility] 09-12-2024 08:24-0400 Diastolic blood pressure 82 mm[Hg] No Primary Care Physician [facility] 09-12-2024 08:24-0400 Systolic blood pressure 134 mm[Hg] No Primary Care Physician [facility] 02-16-2024 19:26-0500 Body height 157.5 cm Delmy Doe DO Work Phone: [facility] 02-16-2024 19:26-0500 Body mass index (BMI) [Ratio] 45.36 kg/m2 Delmy Doe DO Work Phone: [facility] 02-16-2024 19:26-0500 Body temperature 97.9 [degF] Delmy Doe DO Work Phone: [facility] 02-16-2024 19:26-0500 Body weight 112.49 kg Delmy Doe DO Work Phone: [facility] 02-16-2024 19:26-0500 Diastolic blood pressure 85 mm[Hg] Delmy Doe DO Work Phone: [facility] 02-16-2024 19:26-0500 Heart rate 92 /min Delmy Doe DO Work Phone: [facility] 02-16-2024 19:26-0500 Respiratory rate 18 /min Delmy Doe DO Work Phone: [facility] 02-16-2024 19:26-0500 SaO2% (BldA) [Mass fraction] 97 % Delmy Doe DO Work Phone: [facility] 02-16-2024 19:26-0500 Systolic blood pressure 131 mm[Hg] Delmy Doe DO Work Phone: [facility] Encounters Encounter Date Encounter Type Care Provider Facility Start: 10-09-2024 End: 10-09-[address] Delmy Lentz MD -[facility] Work Phone: Start: 10-09-2024 End: 10-09-2024 ambulatory No Primary Care Physician -[facility] Start: 09-28-2024 End: 09-28-2024 ambulatory No Primary Care Physician -[facility] Start: 09-28-2024 End: 09-28-[address] Yahaira Cardona MD -[facility] Work Phone: Start: 09-28-2024 End: 09-28-2024 ambulatory [facility] Facility:[facility] Start: 09-26-2024 End: 09-26-2024 ambulatory No Primary Care Physician -[facility] Start: 09-26-2024 End: 09-26-[address] Yahaira Cardona MD -[facility] Work Phone: Start: 09-26-2024 End: 09-26-2024 ambulatory [facility] Facility:[facility] Start: 09-13-2024 Registered [employer] Start: 09-13-2024 End: 09-13-2024 ambulatory No Primary Care Physician -Laboratory Start: 09-13-2024 End: 09-13-[address] Yahaira Cardona MD -Laboratory Work Phone: Start: 09-12-2024 Encounter for gynecological examination (general) (routine) with abnormal findings Yahaira Cardona [facility] Start: 09-12-2024 End: 09-12-[address] Yahaira Cardona MD -[facility] Work Phone: Start: 09-12-2024 End: 09-12-[address] Yahaira Cardona MD [facility] Start: 09-12-2024 End: 09-13-2024 ambulatory No Primary Care Physician [facility] Work Phone: Start: 08-22-2024 End: 08-22-2024 ambulatory No Primary Care Physician Facility[place] Start: 04-14-2024 ambulatory No Primary Car e Physician Facility[place] Start: 02-21-2024 ambulatory No Primary Car e Physician Facility:[facility] Start: 02-16-2024 End: 02-16-2024 Office outpatient new 30 minutes Delmy Doe DO Work Phone: [facility] [place] Comment on above: Bronchitis (Primary Dx); Acute nasopharyngitis; Dysfunction of Eustachian tube, unspecified laterality Start: 02-16-2024 End: 02-16-2024 ambulatory PHYSICIAN NO [facility] Start: 02-07-2024 End: 02-07-2024 ambulatory Narendra MCDANIELS [place]: 02-07-2024 End: 02-07-2024 ambulatory Narendra MCDANIELS Facility:[facility] Start: 12-02-2023 End: 12-02-2023 Emergency department patient visit Chilo Meléndez Facility:[facility] Start: 07-13-2023 End: 07-13-2023 ambulatory ~[id number] DAGOBERTO RACHEL MD Facility:[facility] Start: 06-25-2023 Encounter for gynecological examination (general) (routine) without abnormal findings TAMIKA LUNDBERG DO~[id number] [facility] Start: 06-24-2023 End: 06-24-2023 ambulatory ~[id number] SANCHO AGUERO MD Facility:[facility] Start: 06-24-2023 End: 06-24-2023 Encounter for gynecological examination (general) (routine) without abnormal findings [id number] SANCHO AGUERO MD Facility:[facility] Start: 05-13-2023 End: 05-13-[address] SANCHO AGUERO MD Facility:[facility] Start: 01-16-2023 End: 01-16-[address] SANCHO AGUERO MD Facility:[facility] Procedures Date Procedure Procedure Detail Performing Clinician Start: 09-28-2024 Pelvic echography No [facility] Care Physician Start: 09-26-2024 US scan of thyroid No P [facility] Care Physician Start: 09-13-2024 Dehydroepiandrostero ne sulfate level No Primary Care Physician Start: 09-13-2024 Laboratory data interpretation No Primary Care Physician Comment on above: No lupus anticoagula nt was detected. Start: 09-13-2024 Lupus anticoagulant assay, platelet neutralization method No Primary Care Physician Start: 09-13-2024 Lupus anticoagulant screening test No Primary Care Physician Start: 09-13-2024 Prothrombin time No [facility] Care Physician Start: 09-13-2024 Serum IgM anticardio lipin measurement No Primary Care Physician Comment on above: Negative: <13 Indete rminate: 13 - 20 Low-Med Positive: >20 - 80 High Positive: >80 Start: 09-13-2024 Vitamin D, 25-hydrox y measurement No Primary Care Physician Comment on above: Vitamin D StatusDefi ciency: <20 ng/mL (50nmol/L)Insufficiency: 20-30 ng/mL (50-75 nmol/L)Sufficiency: 30-100 ng/mL (75-250 nmol/L)Toxicity: >100 ng/mL (>250 nmol/L) Start: 09-13-2024 Serum inorganic phos phate measurement No Primary Care Physician Plan of Treatment Date Care Activity Detail Author Start: 09-27-2031 Tetanus vaccination Tetanus: Every 10yrs [facility] Start: 12-08-2023 Screening for malignant neoplasm of cervix [facility] Start: 11-21-2023 COVID-19 Vaccine ( season) COVID-19 Vaccine ( season) [facility] Start: 11-21-2023 Influenza vaccination Influenza Vaccine (#1) [facility] Start: 2014 Screening for malignant neoplasm of cervix Pap Smear [facility] Start: 12-08-2011 Hepatitis C screening Hepatitis C Screening [facility] Start: 2008 HIV screening HIV Screening [facility] Start: 2005 Depression screening using PHQ-9 (Patient Health Questionnaire 9) score Depression Screening/Follow-Up (PHQ-2/9) [facility] Start: 1996 History and physical examination, annual for health maintenance Wellness Visit [facility] Pelvis [facility] Thyroid gland [facility] Thyroid gland [facility] Immunizations Immunization Date Immunization Notes Care Provider Fa [facility] 02-29-2024 influenza, seasonal, injectable, preservative free [facility] 01-05-2022 influenza virus vaccine, unspecified formulation Delmy Doe DO Work Phone: [facility] 09-26-2021 tetanus toxoid, redu adonay diphtheria toxoid, and acellular pertussis vaccine, adsorbed [facility] 01-22-2017 varicella virus vaccine [facility] 11-05-2016 varicella virus vaccine [facility] 03-19-1999 measles, mumps and rubella virus vaccine [facility] 03-19-1999 varicella virus vaccine [facility] 04-14-1995 measles, mumps and rubella virus vaccine [facility] 01-06-1995 hepatitis B vaccine, pediatric or pediatric/adolescent dosage [facility] 02-11-1994 hepatitis B vaccine, pediatric or pediatric/adolescent dosage [facility] 1993 hepatitis B vaccine, pediatric or pediatric/adolescent dosage [facility] Payers Date Payer Category Payer Unknown 2023 Self-pay 2023 Managed Care (privat e) or private health insurance (indemnity), not otherwise specified [employer] [id number] 2023 Private Health Insurance [id number] 1993 Unknown [id number] 2.16.840.1.035884.3.579.2. 419 1993 Unknown [id number] 2.16.840.1.191928.3.579.2. 419 1993 Unknown [id number] 2.16.840.1.632292.3.579.2. 419 1993 Unknown [id number] 2.16.840.1.425313.3.579.2. 419 1993 Unknown [id number] 2.16.840.1.831459.3.579.2. 419 1993 Unknown [id number] 2.16.840.1.165364.3.579.2. 903 1959 Unknown [id number] 1959 Unknown [id number] Unknown [id number] Unknown [id number] 2.16.840.1.863528.3.579.2. 462 Unknown [id number] 2.16.840.1.539458.3.579.2. 462 Unknown [id number] 2.16.840.1.716417.3.579.2. 462 Unknown [id number] 2.16.840.1.209095.3.579.2. 462 Unknown [id number] 2.16.840.1.891943.3.579.2. 462 Unknown [id number] 2.16.840.1.365388.3.579.2. 462 Unknown [id number] 2.16.840.1.257907.3.579.2. 462 Unknown [id number] 2.16.840.1.948617.3.579.2. 462 Unknown [id number] 2.16.840.1.661622.3.579.2. 462 Unknown [id number] 2.16.840.1.786404.3.579.2. 462 Unknown [id number] 2.16.840.1.851040.3.579.2. 462 Unknown [id number] 2.16.840.1.299069.3.579.2. 462 Unknown [id number] 2.16.840.1.347272.3.579.2. 462 Social History Date Type Detail Facility Start: 02-16-2024 End: 09-12-2024 Tobacco smoking status NHIS Never smoked tobacco [facility] Start: 02-16-2024 Tobacco use and exposure Smokeless tobacco non-user [facility] Start: 02-16-2024 History of Social function [facility] Start: 02-16-2024 Tobacco use panel [facility] Start: 1995 Sex assigned at Not on file O [facility] Start: 1995 Sex Assigned At Female W [facility] Clinical Notes 02-01-2023 to 09-28-2024 Note Date & Type Note Facility 09-28-2024 Radiology Diagnostic study note [facility] Imaging Services [address] [place] [address] Pelvic w/ Transvaginal MR#: [id number] Acct: [id number] Name: GUS WRIGHT Rep #: [id number] : 1995 F 28 From: Aly Hassan MD PCP: Dr. Sancho Aguero MD Status: REG CLI Study:Pelvic w/ Transvaginal Date of Exam: 09/28/24 Exam# [id number] Ordering Dr: Yahaira Snow MD PROCEDURE: PELVIC W/ TRANSVAGINAL REASON FOR EXAM: ABNORMAL UTERINE BLEEDING TECHNIQUE: PELVIC W/ TRANSVAGINAL COMPARISON: None FINDINGS: LMP: September 21, 2024. Measurements: Uterus: 8.3 cm x 5.2 cm x 3.4 cm with a volume of 77.08 mL Endometrial Thickness: 14.1 mm. It is hyperechoic. Right Ovary: 3.8 cm x 2.3 cm x 2.9 cm with a volume of 12.88 mL. Left Ovary: 3.4 cm x 2.8 cm x 2.2 cm with a volume of 10.91 mL. TRANSABDOMINAL: Uterus: Normal size, myometrial echotexture, and contour. Endometrium: Endometrium is thickened and measures 14.1 mm. Right ovary: Normal size and echotexture. Left ovary: Normal size and echotexture. Other: No large pelvic mass identified. Transvaginal sonography was performed to better visualize the endometrium. TRANSVAGINAL: Uterus: Anteverted. Normal contour and myometrial echotexture. Endometrium: Endometrial thickening measuring 14.1 mm. Right ovary: Normal size and echotexture. Left ovary: Normal size and echotexture. Other adnexal findings: None. Cul-de-sac: No free intraperitoneal fluid identified. Tenderness: No tenderness US/Pelvic w/ Transvaginal IMPRESSION: Endometrial thickening measuring 14.1 mm. Clinical correlation recommended. Reading Location: [facility] CC: Dr. Yahaira Cardona MD; Dr. Sancho Aguero MD ~ Oil Well Logger: Signed [facility] 09-27-2024 Radiology Diagnostic study note [facility] Imaging Services [address] [place] [address] Thyroid MR#: [id number] Acct: [id number] Name: GUS WRIGHT Rep #: [id number] : 1995 F 28 From: Heidi Jaimes MD PCP: Dr. Sancho Aguero MD Status: REG CLI Study:Thyroid Date of Exam: 09/26/24 Exam# [id number] Ordering Dr: Yahaira Snow MD PROCEDURE: THYROID 09/26/2024 REASON FOR EXAM: THYROMEGALY TECHNIQUE: THYROID COMPARISON: None FINDINGS: Right thyroid lobe size: 5.4x2.4x1.4 cm Midpole solid nodule measuring 4 x 3 x 2 mm is noted. Another midpole complex solid/cystic nodule measuring 4 x 4 x 2 mm is noted. Left thyroid lobe size: 5.4x2.6x1.3 cm Midpole solid nodule measuring 5 x 4.3 mm is noted. Isthmus: 0.2 cm US/Thyroid IMPRESSION: Bilateral thyroid lobes TR4 nodule. Reading Location: [place] [address] CC: Dr. Yahaira Cardona MD; Dr. Sancho Aguero MD ~ Oil Well Logger: Signed [facility] 09-12-2024 Evaluation note Diagnosis Onset Date Resolution Abnormal uterine bleeding acute September 12, 2024 8:21am Other obesity acute September 12, 2024 8:21am PCOS (polycystic ovarian syndrome) acute September 12, 2024 8:21am Thyromegaly acute September 12 8:21am Encounter for gynecological examination (general) (routine) with abnormal noneactive August 8:21am [facility] Work Phone: 1(579) 982-214106-24-2025 Evaluation note* Diagnosis Onset Date Resolution Status Admit Date Abnormal uterine bleeding acute September 12, 2024 8:21am Other obesity acute September 12, 2024 8:21am PCOS (polycystic ovarian syndrome) acute September 12, 2024 8:21am Thyromegaly acute September 12 8:21am Encounter for gynecological examination (general) (routine) with abnormal noneactive August h2024 8:21am Thyroid nodule acute October 09, 2024 7:36am Thyromegaly acute October 09 7:36am [facility] Work Phone: 1(999) 906-251006-24-2025 Progress [facility] [address] [place] [address], [address] [place] [address] OFFICE VISIT Date of Service: 09/12/24 MR#: [id number] Acct: [id number] Name: GUS WRIGHT Rep #: [id number] : 1995 Provider: Dr. 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) *ok per Gang Punch Operator Required: No Is patient in pain?: No Allergies cinnamon Allergy (Mild, Verified 09/12/24 08:27) Anaphylaxis nickel Allergy (Mild, Verified 09/12/24 08:27) Rash acetaminophen (From [place]) Adverse Reaction (Mild, Verified 09/12/24 08:27) Vomiting hydrocodone (From [facility]) Adverse Reaction (Mild, Verified 09/12/24 08:27) Vomiting [...] menopausal: No Patient : No : No [facility] Medical History (Updated 09/12/24 @ 09:07 by [...] 1 current occupational status: employed 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 Last PAP: 2023 - normal History of abnormal PAP: no severe Last mammogram: not due History of abnormal mammogram: Colon cancer screening: not due Other preventative health care screenings: PCP Laci at [facility]. Female Reproductive History Last Menstrual Period: 08/20/24 [...] hematuria, hot flashes, nipple discharge, pelvic pain, prolapsesymptoms, urinary frequency, urinary urgency, vaginal discharge, vaginal dryness, vaginal odor or vaginal pruritus Skin Skin/Breast: Denies changing lesions, breast mass, breast pain, breast skin changes or nipple discharge Psych Psych: Denies anxiety, change in libido, depression or difficulty concentrating Exam Const General: cooperative, healthy appearing, comfortable, no acute distress, well developed and well groomed HENGA Head: normal to inspection and normocephalic Ears: [...] maintenance exam or sooner if needed. 09/12/24 Ruslan thapa MD> Date _ Yahaira Campbell Signature: Date (if applicable) CC: ~ [facility]11-27-2024 Note* Addendum Note - Delmy Doe DO - 02/16/2024 8:26 PM ESTAddended by: DELMY DOE on: 02/16/2024 08:26 PM Modules accepted: Orders [id number] Note* Addendum Note - Delmy Doe DO - 02/16/2024 8:26 PM ESTAddended by: DELMY DOE on: 02/16/2024 08:26 PM Modules accepted: Orders [id number] Note* Addendum Note - Delmy Doe DO - 02/16/2024 8:26 PM ESTAddended by: DELMY DOE on: 02/16/2024 08:26 PM Modules accepted: Orders [id number] Miscellaneous Notes* Addendum Note - Delmy Doe DO - 02/16/2024 8:26 PM ESTAddended by: DELMY DOE on: 02/16/2024 08:26 PM Modules accepted: Orders documented in this [id number] NotePATIENT NAME: Gus Wright [facility] [address] [facility] [id number] DATE OF VISIT: 02/16/2024 DATE OF : [...] 10 days ago in a clinic in [place]. Questionable early pneumonia noted on x-ray. Radiologist [...] Z-Finn) 250 MG table (more content not included)...[facility] [id number] History of Present illness Narrative* Delmy Doe DO - 02/16/2024 7:37 PM EST PATIENT NAME: Gus Wright [facility]: [address] [facility] [id number] DATE OF VISIT: 02/16/2024 DATE OF : [...] 10 days ago in a clinic in [place]. Questionable early pneumonia noted on x-ray. Radiologist [...] that she did not have findings for otitismedia but rather her upper respiratory congestion was [...] visit. Delmy Doe DO documented in this [id number] History of Present illness Narrative* Delmy Doe DO - 02/16/2024 7:37 PM EST PATIENT NAME: Gus Wright [facility]: [address] [facility] [id number] DATE OF VISIT: 02/16/2024 DATE OF : 1995 SS: [id number] PROVIDER: eDlmy Doe DO SUBJECTIVE 28 y.o. female to [...] 10 days ago in a clinic in [place]. Questionable early pneumonia noted on x-ray. Radiologist [...] that she did not have findings for otitismedia but rather her upper respiratory congestion was [...] visit. Delmy Doe DO documented in this [id number] NotePROCEDURE: SHOULDER RIGHT COMPLETE, 02/01/2023 8:00 AM EST [...] joint, type II acromioclavicular strain considered, age undetermined.[facility] Diagnosis Bronchitis- Primary Bronchitis, not specified as acute or chronic Acute nasopharyngitis Acute nasopharyngitis (common cold) Dysfunction of Eustachian tube, unspecified laterality documented in this encounter [facility]* Diagnosis Bronchitis- Primary Bronchitis, not specified as acute or chronic Acute nasopharyngitis Acute nasopharyngitis (common cold) Dysfunction of Eustachian tube, unspecified laterality documented in this encounter [facility] noteNo assessment information availableBlSt. Jude Medical Center Work Phone: Evaluation note* Diagnosis Onset Date Resolution Status Admit Date Abnormal uterine bleeding acute Myra 24th, 2025 8:21am Other obesity acute September 12, 2024 8:21am PCOS (polycystic ovarian syndrome) acute September 12, 2024 8:21am Thyromegaly acute September 12 8:21am Encounter for gynecological examination (general) (routine) with abnormal noneactive August 8:21am [facility] Work Phone: Instructions* Attachments The following attachments cannot be sent through Care Everywhere. * Bronchitis (Uzbek) * URI (Upper Respiratory Infection) (Uzbek) * Eustachian Tube Problems (Uzbek) documented in this encounterOhioHealthInstructions* Attachments The following attachments cannot be sent through Care Everywhere. * Bronchitis (Uzbek) * URI (Upper Respiratory Infection) (Uzbek) * Eustachian Tube Problems (Uzbek) documented in this encounterOhioHealthProgress note Author Yahaira Cardona [facility] Services Note Date/Time September 12, 2024 9:07 am [facility] [address], [address] [place] [address] OFFICE VISIT Date of Service: 09/12/24 MR#: [id number] Acct: [id number] Name: GUS WRIGHT Rep #: [id number] : 1995 Provider: Dr. 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) *ok per Gang Punch Operator Required: No Is patient in pain?: No Allergies cinnamon Allergy (Mild, Verified 09/12/24 08:27) Anaphylaxis nickel Allergy (Mild, Verified 09/12/24 08:27) Rash acetaminophen (From [facility]) Adverse Reaction (Mild, Verified 09/12/24 08:27) Vomiting hydrocodone (From [facility]) Adverse Reaction (Mild, Verified 09/12/24 08:27) Vomiting [...] menopausal: No Patient : No : No PFSH Medical History (Updated 09/12/24 @ 09:07 by [...] 1 current occupational status: employed 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 Last PAP: 2023 - normal History of abnormal PAP: no severe Last mammogram: not due History of abnormal mammogram: Colon cancer screening: not due Other preventative health care screenings: PCP Laci at [facility]. Female Reproductive History Last Menstrual Period: 08/20/24 [...] acute distress, well developed and well groomed HENGA Head: normal to inspection and normocephalic Ears: [...] Cosigner Signature: Date (if applicable) CC: ~ [facility] Work Phone: Reason for referral (narrative)No reason for referral information availableBlSt. 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) *ok per September 12, 2024 8:21am Reason for Visit Admit Date Abnormal uterine bleeding September 12 8:21am Other obesity September 12, 2024 8:21 am PCOS (polycystic ovarian syndrome) September 12, 2024 8:21am Thyromegaly September 12, 2024 8:21 am Encounter for gynecological examination (general) (routine) with abnormal September 12, 2024 8:21am Chief Complaint Admit Date 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) *ok per September 12, 2024 8:21am E ORDERS September 13, 2024 7:08 am EMPLOYEE LABS September 13, 2024 7:13 am Chief Complaint Admit Date 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) *ok per September 12, 2024 8:21am E ORDERS September 13, 2024 7:08 am EMPLOYEE LABS September 13, 2024 7:13 am THYROMEGALY September 26, 2024 7:58p m AUB September 28, 2024 1:19 pm Chief Complaint Admit Date 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) *ok per September 12, 2024 8:21am E ORDERS September 13, 2024 7:08 am EMPLOYEE LABS September 13, 2024 7:13 am THYROMEGALY September 26, 2024 7:58p m AUB September 28, 2024 1:19 pm THYROID CONSULT ONLY October 09, 2024 7:3 6am Reason for Visit Admit Date Abnormal uterine bleeding September 12 8:21am Other obesity September 12, 2024 8:21 am PCOS (polycystic ovarian syndrome) September 12, 2024 8:21am Thyromegaly September 12, 2024 8:21 am Encounter for gynecological examination (general) (routine) with abnormal September 12, 2024 8:21am Thyroid nodule October 09, 2024 7:36 am Thyromegaly October 09, 2024 7:36 am Additional Source Comments INFORMATION SOURCE (unrecogn ized section and content) DATE CREATED AUTHOR 11/02/2023 [facility] DATE CREATED AUTHOR AUTHOR'S ORGANIZ ATION 02/19/2024 [facility] DATE CREATED AUTHOR AUTHOR'S ORGANIZ ATION 10/11/2024 [facility] Reason for Visit (unrecogniz ed section and content) Reason Comments Illness St, cough, rt ear pa in, having trouble with asthma Seen and treated with Augmentin with one day left Care Teams (unrecognized sec tion and content) Marshmallow Maker Relationship Specialty Start Date End Date No, Physician [facility] PCP - General 02/16/24 Marshmallow Maker Relationship Specialty Start Date End Date No, Physician [facility] PCP - General 02/16/24 Team Status: Active [...] September 12, 2024 End: September 12, 2024 Team Status: Active Member Role/Relationship Status Dates Dr. Sancho Aguero MD Primary Care Provider Activ e Team Status: Inactive Member Role/Relationship Status Dates No Primary Care Physician Primary Care Provider Active Start: September 12, 2024 End: September 12, 2024 No Primary Care Physician Referring Provider Active Start: September 12, 2024 End: September 12, 2024 Dr. Yahaira Cardona MD Attending Provider Active Start: September 12, 2024 End: September 12, 2024 Team Status: Inactive Member Role/Relationship Status Dates Dr. Sancho Aguero MD Primary Care Provider Activ e Start: September 13, 2024 End: September 13, 2024 Dr. Yahaira Cardona MD Attending Provider Active Start: September 13, 2024 End: September 13, 2024 Dr. Yahaira Cardona MD Referring Provider Active Start: September 13, 2024 End: September 13, 2024 Team Status: Active Member Role/Relationship Status Dates Dr. Sancho Aguero MD Primary Care Provider Activ e Start: September 13, 2024 Health Risk Assessment Attending Provider Active Start: September 13, 2024 Health Risk Assessment Referring Provider Active Start: September 13, 2024 Team Status: Inactive Member Role/Relationship Status Dates Dr. Yahaira Cardona MD Attending Provider Active Start: September 26, 2024 End: September 26, 2024 Dr. Yahaira Cardona MD Referring Provider Active Start: September 26, 2024 End: September 26, 2024 Dr. Sancho Aguero MD Primary Care Provider Activ e Start: September 26, 2024 End: September 26, 2024 Team Status: Active Member Role/Relationship Status Dates Dr. Yahaira Cardona MD Attending Provider Active Start: September 28, 2024 Dr. Yahaira Cardona MD Referring Provider Active Start: September 28, 2024 Dr. Sancho Aguero MD Primary Care Provider Activ e Start: September 28, 2024 Team Status: Inactive Member Role/Relationship Status Dates Dr. Yahaira Cardona MD Attending Provider Active Start: September 28, 2024 End: September 28, 2024 Dr. Yahaira Cardona MD Referring Provider Active Start: September 28, 2024 End: September 28, 2024 Dr. Sancho Aguero MD Primary Care Provider Activ e Start: September 28, 2024 End: September 28, 2024 Team Status: Inactive Member Role/Relationship Status Dates Dr. Sancho Aguero MD Primary Care Provider Activ e Start: October 09, 2024 End: October 09, 2024 Dr. Sancho Aguero MD Referring Provider Active Start: October 09, 2024 End: October 09, 2024 Dr. Delmy Lentz MD Attending Provider Active Start: October 09, 2024 End: October 09, 2024 Goals (unrecognized section and content) Goals may be documented in a n alternate sectionGoals may be documented in an alternate sectionGoals may be documented in an alternate sectionGoals may be documented in an alternate sectionGoals may be documented in an alternate sectionGoals may be documented in an [...] BE BASED ON THE PRIMARY CLINICAL RECORDS. [facility]. provides no warranty or guarantee of the accuracy or completeness of information in this document.
[2024-10-15 14:30] LABS: Hematocrit 34.9 % (37-47); Hemoglobin 10.8 g/dL (12.0-15.0); Immature Granulocytes Count 0.070 X10^3/uL (0.0-0.0); Mean Corp Hgb Conc 30.9 g/dL (32-36); Mean Corpuscular Volume 78.4 fL (81-99); Mean Platelet Vol. 9.5 fl (6.2-12.0); NRBC Flagged by Analyzer 0 % (0-5); Platelet Count 255 K/mm3 (150-450); RBC Distribution Width CV 14.8 % (11.6-14.6); RBC Distribution Width SD 42.3 fl (35.1-43.9); Red Blood Count 4.45 M/mm3 (4.2-5.4); White Blood Count 6.6 K/mm3 (4.4-11.0)
[2024-10-15 14:48] LABS: Internal QC Validated? YES +Cl - CLEAR BKGD; Pregnancy, Serum, hCG Quali. NEGATIVE Negative; Record Kit Lot#, Serum Preg. 0000962302
[2024-10-15 15:36] VITALS: BP 121/65; PULSE 90; RESP 13; TEMP 36.9; O2SAT 98
== END 2024-10-15 16:17 | disposition home or self-care (01) ==
PROVIDERS: Emergency Provider Emergency Medicine; PCP Internal Medicine; Visit Provider Emergency Medicine
DX: N93.9 Abnormal uterine and vaginal bleeding, unspecified (principal); D50.9 Iron deficiency anemia, unspecified; E28.2 Polycystic ovarian syndrome; R03.0 Elevated blood-pressure reading, without diagnosis of hypertension
CPT/HCPCS: 84703; 85025; 99284; A4216

== ENCOUNTER → 2024-10-25 | Outpatient (CLI) | payer OTHER, SELFPAY ==
--- NOTE | 2024-10-25 11:22 | EMB_PTH ---
PATIENT: GUS WRIGHT LOC: [facility] U#:[id number] AGE/SX: 28/F ROOM: RE10/25/[address]: STEF Layton : 1995 BED: DIS: 10/25/2024 SPEC #: [id number] RECD: 10/25/24 12:17 STATUS: JALEESA ДМИТРИЙ #: [id number] QUETA: 10/25/24 11:[address]: Cat Miranda NP DEPT: SURGICAL PATHOLOGY RECD BY: Luther Lewis Tissues: A - Endometrium, NOS Procedures: Surgery Specimen Level IV HEADER OPERATION: Endometrial biopsy PRE-OP DIAGNOSIS: Abnormal uterine bleeding TISSUE SUBMITTED: A- Endometrial lining MICROSCOPIC DIAGNOSIS A. Endometrium, biopsy: * Benign endometrium with extensive decidual alteration of the stroma, consistent with progesterone therapy MICROSCOPIC DESCRIPTION Slides are reviewed. GROSS DESCRIPTION A. Received in formalin and labeled with the patient's name and date of is a 2.6 x 1.7 x 0.1 cm aggregate of pink-red tissue. Entirely submitted in 1 cassette. [place] 10/25/2024 CPT:55866
== END | disposition home or self-care (01) ==
LOC: LABSPEC 11:40
PROVIDERS: PCP Internal Medicine; Visit Provider Nurse Practitioner Women's Health
DX: N93.9 Abnormal uterine and vaginal bleeding, unspecified (principal)
CPT/HCPCS: 88305

== ENCOUNTER 2024-12-19 13:01 | Day surgery (SDC) | payer OTHER, SELFPAY ==
--- OUTSIDE RECORDS SUMMARY | 2024-02-16 20:15 | XMS RPT_ITS ---
Author Name Auto Generated Organization [facility] Care Team Providers Care Director Trial Name Role Phone NO, PHYSICIAN Primary Care Unavailable ALEXANDER DOE Attending Unavailable PROBLEMS DATE TYPE CONDITION / CODE ATTENDING STATUS [facility]16/2024 Admitting diagnosis Bronchitis, not specified as acute or chronic / J40(ICD-10) ALEXANDER DOE Active [facility] 02/16/2024 Admitting diagnosis Acute nasopharyngitis (common cold) / J00(ICD-10) ALEXANDER DOE Active [facility] 02/16/2024 Admitting diagnosis Unspecified eustachian tube disorder, unspecified ear / H69.90(ICD-10) ALEXANDER DOE Active [facility] PROCEDURES No Procedure Records Found RESULTS PROGRESS Observed: 02/16/2024 7:37 PM Status: COMPLETED Source: [facility] PATIENT NAME: Gus lee [facility] URGENT CARE: [address] [facility] [id number] DATE OF VISIT: 02/16/2024 DATE OF : 1995 SS: [id number] PROVIDER: DO ESTEFANIA Mckenna 28 y.o. female to the clinic for complaint of Chief Complaint Patient presents with Illness St, cough, rt ear pain, having trouble with asthma Seen and treated with Augmentin with one day left HPI: Gus has had respiratory symptoms for almost 1 month. Symptom complex includes sore throat, cough, right ear pain, perceived exacerbation of asthma with cough, wheeze, dyspnea. She is evaluated approximately 10 days ago in a clinic in [place]. Questionable early pneumonia noted on x-ray. Radiologist reading was negative. Augmentin was prescribed and she is on her last day of that medication. She is no longer having fevers. The cough, wheeze and mild dyspnea are the prominent symptoms. She is on Qvar and has albuterol inhaler for rescue. She has been using it more than usual due to her symptoms. ROS: Constitutional: See HPI above. Eyes: Denies visual change. Head/Ear/Nose/Throat: See HPI above. Denies sinus pain, sinus pressure. Respiratory: See HPI above. Cardiovascular: Denies chest pain. Musculoskeletal: Denies generalized myalgia. Neurological: Denies headache. Social History Socioeconomic History Marital status: Tobacco Use Smoking status: Never Smokeless tobacco: Never Past Medical History: Diagnosis Date Anxiety Asthma Bipolar 1 disorder (HCC) Depression History reviewed. No pertinent family history. Current Outpatient Medications on File Prior to Visit Medication Sig Dispense Refill amoxicillin-clavulanate (AUGMENTIN) 875-125 mg per tablet hydrOXYzine (ATARAX) 25 MG tablet lamoTRIgine (LAMICTAL) 25 MG tablet Take 1 (one) tablet (25 mg total) by mouth 2 (two) times a day . predniSONE (DELTASONE) 20 MG tablet Qvar RediHaler 40 mcg/actuation HFAB sertraline (ZOLOFT) 100 MG tablet ascorbic acid, vitamin C, (VITAMIN C) 1000 MG tablet Take 1 (one) tablet (1,000 mg total) by mouth daily . (Patient not taking: Reported on 02/16/2024 .) levonorgestreL (DONNIE) IUD iud by Intrauterine route . (Patient not taking: Reported on 02/16/2024 .) No current facility-administered medications on file prior to visit. No Known Allergies EXAM: BP 131/85 Pulse 92 Temp 97.9 degrees F (36.6 degrees C) Resp 18 Ht 5' 2 Wt 112.5 kg (248 lb) SpO2 97% BMI 45.36 kg/m Constitutional: Vital signs reviewed. Well-appearing. No distress. Psychiatric: Mental status is appropriate. Normal affect. Skin: Warm and dry. No rash noted. Eyes: Conjunctiva clear. No photophobia. HENT: No hoarseness, drooling, trismus or stridor. No tonsil enlargement or exudate. No abscess. Tympanic membranes are normal. Thorax/ Respiratory: Respiratory effort non-labored. Speaks in full sentences without dyspnea. Air movement is diminished and she has diffuse expiratory wheeze and rhonchi and hyperactive cough reflex with attempted deep breaths. Cardiovascular: Good peripheral circulation. H RRR with no murmurs or ectopy. Musculoskeletal: No gross abnormalities. Neck has normal ROM without hesitation or pain response. Neurologic: Alert and appropriately conversant. No ataxia. No dysarthria. No gross facial motor asymmetry. PROCEDURE Procedures RESULTS No results found for this or any previous visit (from the past week). Diagnosis: The primary encounter diagnosis was Bronchitis. Diagnoses of Acute nasopharyngitis and Dysfunction of Eustachian tube, unspecified laterality were also pertinent to this visit. Plan: 1. Bronchitis predniSONE (DELTASONE) 20 MG tablet azithromycin (Zithromax Z-Finn) 250 MG tablet 2. Acute nasopharyngitis 3. Dysfunction of Eustachian tube, unspecified laterality No follow-ups on file. ADDITIONAL CLINICAL COMMENTS / MEDICAL DECISION MAKING / PLAN: Patient has adequate supplies of her inhalers. I prescribed course of Zithromax and prednisone for her acute bronchitis/flare of asthma. Provided reassurance that she did not have findings for otitis media but rather her upper respiratory congestion was causing eustachian tube dysfunction. ORDERS PLACED THIS VISIT No orders of the defined types were placed in this encounter. MEDICATION LIST AT END OF VISIT Current Outpatient Medications Medication Sig Dispense Refill amoxicillin-clavulanate (AUGMENTIN) 875-125 mg per tablet hydrOXYzine (ATARAX) 25 MG tablet lamoTRIgine (LAMICTAL) 25 MG tablet Take 1 (one) tablet (25 mg total) by mouth 2 (two) times a day . predniSONE (DELTASONE) 20 MG tablet Qvar RediHaler 40 mcg/actuation HFAB sertraline (ZOLOFT) 100 MG tablet ascorbic acid, vitamin C, (VITAMIN C) 1000 MG tablet Take 1 (one) tablet (1,000 mg total) by mouth daily . (Patient not taking: Reported on 02/16/2024 .) azithromycin (Zithromax Z-Finn) 250 MG tablet Take as directed: 2 pills first day; then one pill daily for 4 days. . 6 tablet 0 levonorgestreL (DONNIE) IUD iud by Intrauterine route . (Patient not taking: Reported on 02/16/2024 .) predniSONE (DELTASONE) 20 MG tablet Take 2 (two) tablets (40 mg total) by mouth daily for 5 days . 10 tablet 0 No current facility-administered medications for this visit. Alexander Doe DO AUTHENTICATED BY ALEXANDER DOE, ON 02/16/2024 20:12:10 ALLERGIES DATE TYPE / CODE NAME / CODE REACTION SEVERITY SOURCE Miscellaneous Allergy/947621334(SNOMED CT) NO KNOWN ALLERGIES [facility] ENCOUNTERS ADMIT/DISCHARGE ACCOUNT NUMBER ADMITTING ENCOUNTER CLASS LOC ATION SOURCE 02/16/2024/02/16/2024 [id number] Ambulatory Buildi ng:[facility] PAYERS ENCOUNTER GUARANTOR PAYER SUBSCRIBER SOURCE 02/16/2024 GUS GREENGDOB: [place], [place] [address]Jap: () Primary Insurance:[place] icy Number: [id number] Date:[id number] [address], [place] [address]OL: GUS CopelandOSTINGDOB: [id number] [place], [place] [address]Ble: () [facility]
[2024-12-19] VITALS (11 sets, daily range): BP systolic 87–126; BP diastolic 50–78; PULSE 85–99; RESP 16; TEMP 36.2–36.9; O2SAT 95–100; BMI 43.1
[2024-12-19 13:39] LABS: Internal QC Validated? YES +Cl - CLEAR BKGD
[2024-12-19 13:40] LABS: Pregnancy, Urine Negative Negative; Record Kit Lot#,Urine Preg 0000980607
[2024-12-19] MEDS: Lactated Ringers 1,000 ML 15 ML IV (13:41)
[2024-12-19 13:48] LABS: Hematocrit 34.7 % (37-47); Hemoglobin 10.3 g/dL (12.0-15.0); Mean Corp Hgb Conc 29.7 g/dL (32-36); Mean Corpuscular Volume 74.8 fL (81-99); Mean Platelet Vol. 9.4 fl (6.2-12.0); Platelet Count 271 K/mm3 (150-450); RBC Distribution Width CV 15.4 % (11.6-14.6); RBC Distribution Width SD 41.4 fl (35.1-43.9); Red Blood Count 4.64 M/mm3 (4.2-5.4); White Blood Count 7.4 K/mm3 (4.4-11.0)
--- NOTE | 2024-12-19 13:57 | PCM.HP.BLA ---
History and Physical Intake Vital Signs 11/04/2507:39 11/28/2507:01 Height 5 ft 2 in 5 ft 2 in Weight: 241 lb 9 oz 241 lb 7 oz BMI 44.1 44.1 BP 138/87 H 143/97 H Pulse 83 Intake Visit Reasons: Heavy Bleeding, Progesterone FU *per Telephone Engineer Required: No Is patient in pain?: Yes (some cramping) Allergies cinnamon Allergy (Mild, Verified 11/27/24 08:03) Anaphylaxis nickel Allergy (Mild, Verified 11/27/24 08:03) Rash acetaminophen (From [place]) Adverse Reaction (Mild, Verified 11/27/24 08:03) Vomiting hydrocodone (From [place]) Adverse Reaction (Mild, Verified 11/27/24 08:03) Vomiting Medications ?Medication ?Instructions ?Recorded ?Confirmed ?Type lamotrigine 25 mg tablet 50 mg PO DAILY 12/02/23 11/27/24 History sertraline 100 mg tablet 150 mg PO Q24H 12/02/23 11/27/24 History hydroxyzine HCl 25 mg tablet 25 mg PO BID PRN 09/12/24 11/27/24 History medroxyprogesterone 5 mg tablet 5 mg PO QDAY 90 days #90 tabs 10/20/24 11/27/24 Rx Vitamin D3 PO 11/03/24 11/27/24 History Is last menstrual period known: No Post menopausal: No Patient : No : No [facility] Medical History Pre-eclampsia in second trimester History of miscarriage PCOS (polycystic ovarian syndrome) Pneumonia Kidney stones Carpal tunnel syndrome Anemia Asthma Anxiety Bipolar disorder Surgical History H/O right knee surgery History of appendectomy Family History Mother Anemia Anxiety Father Anxiety Arthritis Depression Grandmother Anxiety Diabetes Grandfather Myocardial infarction, Onset Age: 82 Grandfather CVA (cerebral vascular accident) Uncle Suicide attempt Brother Asthma Depression Other Atrial fibrillation Hypertension Social History household members: spouse and children number of children: 1 current occupational status: employed 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 She has a history of Polycystic Ovary Syndrome (PCOS) and has been experiencing heavy bleeding for four months. The bleeding intensified after starting a combination control pill, leading to continuous heavy bleeding for two and a half weeks. The patient was advised to take Provera, initially at a higher dose, which reduced the bleeding significantly. However, upon reducing the dose, she began experiencing spotting again. She has a history of a miscarriage over a year ago, after which her menstrual cycle has been irregular. An endometrial biopsy was performed recently, which returned normal results, ruling out endometrial hyperplasia. The patient also reports a history of thyromegaly, with nodules that have been evaluated and deemed non-concerning by an hydraulic press tender. - Endometrial biopsy: Normal results, ruling out endometrial hyperplasia. Attestation: Documentation on this patient encounter was supported using ambient scribe technology/ voice AI technology. The patient consented to recording for the purpose of documenting the encounter. Provider reviewed content of the generated note prior to signature. History 3 Elective abortions Hx Para 1 Spontaneous abortions 2 Hx # Term Pregnancies Ectopic pregnancies Hx # Pregnancies Multiple births # of living children 1 Past Pregnancies Del. Date Name GA/Weeks Outcome Route Bth Weight Infant Gen Labor Lgth Anesthesia Del [facility] Provider FOB Unknown 2010 spontaneous Unknown 2023 spontaneous 11/18/21 Patric 36 ROS ROS Narrative - General: Reports fatigue, denies fever. - Endocrine: Reports cold intolerance. - Cardiovascular: Denies chest pain. - Respiratory: Denies shortness of breath, cough, wheezing. - Gastrointestinal: Denies bowel complaints. - Musculoskeletal: Denies back or joint pain. Exam Exam Narrative - General: Normal physical examination findings. - HEENT: Normal examination. - Thyroid: Thyromegaly noted. - Cardiovascular: Normal cardiac examination. - Respiratory: Normal lung examination. - Abdomen: Normal abdominal examination. - Extremities: No edema noted. Coding Level of Care Code Off vis,est,level 4 Diagnoses Abnormal uterine bleeding N93.9 Assessment and Plan Assessment and Plan (1) Abnormal uterine bleeding: Status: Acute Comment: peristent plan d and c then OCP Plan Assessment and Plan 28-year-old female with a history of Polycystic Ovary Syndrome (PCOS) presenting with heavy menstrual bleeding. The patient has been experiencing heavy bleeding for four months, exacerbated by the use of a combination control pill, which led to continuous bleeding for two and a half weeks. Provera was effective in reducing the bleeding when taken at a higher dose, but spotting resumed upon dose reduction. The patient has a history of a miscarriage over a year ago, with subsequent irregular menstrual cycles. An endometrial biopsy was performed recently, which returned normal results, ruling out endometrial hyperplasia. The patient also reports a history of thyromegaly, with nodules evaluated and deemed non-concerning by an hydraulic press tender. 1. Polycystic Ovary Syndrome (Pcos) The plan includes continuing progesterone therapy up to the scheduled dilation and curettage (D&C) to manage the endometrial lining. Post-procedure, the patient will be placed on a combination control pill to maintain a thin endometrial lining and manage PCOS symptoms. 2. Heavy Menstrual Bleeding A D&C hysteroscopy is planned to address the heavy menstrual bleeding and to resynchronize the endometrial lining. The procedure is expected to be scheduled within a month, with the patient advised to continue progesterone therapy until then. 3. Thyromegaly The patient's thyromegaly is being monitored, with previous evaluations showing non-concerning nodules. Patient Instructions: - Continue taking progesterone as prescribed until the D&C procedure. - If significant breakthrough bleeding occurs, increase progesterone dosage as advised. - Follow preoperative instructions, including fasting and using special soap before the procedure. - Resume normal activities the day after the D&C procedure. - Contact the office if additional progesterone refills are needed. After discussing the patient's diagnosis and treatment plan options, patient wishes to proceed with surgical management. I have discussed with the patient the risks, benefits, and alternatives of the procedure which include but are not limited to risks of anesthesia, bleeding, infection, possible damage to bowel, bladder, or surrounding vasculature which could lead to additional surgery to evaluate any complications. Patient agrees to procedure and wishes to proceed. ACOG/uptodate references given for additional information regarding procedure. UPDATE- I have seen the patient and performed any clinically relevant updates to the history and physical exam. Yahaira Cardona MD
--- NOTE | 2024-12-19 14:07 | PCM.PRE.AN2 ---
ASA Classification* ASA Classification ASA Classification: 3 Assessment & Plan Anesthesia* Anesthesia Assessment Anesthesia Assessment: Discussed sedation and/or anesthesia options, risks, benefits, and alternatives with patient/parents/legal guardian/POA. Questions invited. The patient/parents/legal guardian/POA seems to understand and agrees to proceed with anesthesia plan. Reviewed the physical assessment, medical history, allergy history and patient home medications list prior to surgery/procedure/anesthetic and documented any changes. Performed airway and anesthesia risk assessments. Anesthesia Type Anesthesia Type: MAC (Patient has severe history of nausea vomiting. Will supplement with a scopolamine patch.) History Source History Obtained from:: Patient and Chart Anesthesia Focused Assessment* Temperature: 98 F Pulse Rate: 86 Blood Pressure: 126/78 Respiratory Rate: 16 Pulse Ox: 96 Oxygen Delivery Method: Room Air Airway Assessment Mouth opens: >3 cm Mallampati Score: III Teeth Condition: Intact Neck Range of motion (ROM): Limited ROM (Slight Decrease) Comment: Patient has a permanent lower retainer. Labs Anesthesia Preop lab: CBC WBC, (4.4-11.0) 7.4 K/mm3 Today, 13:30 RBC, (4.2-5.4) 4.64 M/mm3 Today, 13:30 Hgb, (12.0-15.0) 10.3 g/dL L Today, 13:30 Hct, (37-47) 34.7 % L Today, 13:30 Plt Count, (150-450) 271 K/mm3 Today, 13:30 CHEMISTRY Potassium, (3.3-5.1) 3.6 mmol/L 09/13/24, 07:15 Sodium, (133-145) 137 mmol/L 09/13/24, 07:15 Phosphorus, (2.7-4.5) 3.7 mg/dL 09/13/24, 07:15 BUN, (4-19) 14 mg/dL 09/13/24, 07:15 Creatinine, (0.70-1.20) 0.61 mg/dL L 09/13/24, 07:15 Glucose, (70-99) 94 mg/dL 09/13/24, 07:15 TSH, (0.300-4.200) 3.210 uIU/mL 09/13/24, 07:16 COAG Urine Test Negative Negative Today, 13:19 Tst Clinic Negative 10/25/24, 11:13 Pre-Assessment Diagnosis/Proposed Procedure Planned Operative Procedure(s): Hysteroscopy,Dilation and Curettage Anesthesia History 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 When Was Last Pacemaker Check QUESTION #4 FULL TEXT: You/Your Family Experience fever (hyperthermia) with Anesthesia Last Oral Intake Last Oral intake: Last Oral Intake NPO since 00:00 12/19/24 13:32 Meds taken in AM with sips of water? Meds patient instructed to take am of surgery PONV PONV - auto slip cover installer: PONV - auto slip cover installer Female Yes 12/11/24 10:02 HX of Motion Sickness No 12/11/24 10:02 HX of N/V After Surgery No 12/11/24 10:02 Non-Smoker Yes 12/11/24 10:02 Duration of Surgery greater No 12/11/24 10:02 than 60 minutes Number of Risk Factors 2 12/11/24 10:02 PONV Score Moderate Risk 12/11/24 10:02 Height & Weight Height & Weight: Anesthesia: Height & Weight Height 5 ft 2 in 12/19/24 13:32 Weight: 107.048 kg 12/19/24 13:32 Body Mass Index (BMI) 43.1 12/19/24 13:32 Respiratory Assessment Respiratory Assessment - auto slip cover installer: Respiratory Tract Infection Hx - auto slip cover installer Hx Respiratory Tract Infection Yes: STREP THROAT- 12/11/24 10:02 ANTIBIOTIC is completed STOP Sleep Apnea STOP Sleep Apnea - auto slip cover installer: STOP Sleep Apnea - auto slip cover installer Hx Hypertension No 12/11/24 10:02 Hx Sleep Apnea No 12/11/24 10:02 CPAP BIPAP Do you snore loudly (louder No 12/11/24 10:02 than talking or can be heard Do you often feel tired/ No 12/11/24 10:02 fatigued/ sleepy during daytime? Has anyone observed you stop No 12/11/24 10:02 breathing during sleep? STOP Results Negative 12/11/24 10:02 QUESTION #5 FULL TEXT : Do you snore loudly (louder than talking or can be heard through closed doors)? 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 Specify any problems Hx of Preganancy in last 3 No 12/11/24 10:02 Months Nurse Filling Out Transfusion VCHRISTIN 12/11/24 10:02 & Questions: Date: 12/11/24 12/11/24 10:02 Time: 10:05 12/11/24 10:02 Patient unable to answer at this time (ie. confused, unrespo /Reproduction History /Reproductive History - auto slip cover installer: /Reproductive Hx- auto slip cover installer Hx Now No 12/11/24 10:02 Gestational Age (in weeks): EDC: Hx Hx Para Hx Section SAB No 12/11/24 10:02 Active Medications Active Medications: Current Medications Generic Name Dose Route Start Last Admin Trade Name Freq PRN Reason Stop Dose Admin Lactated Ringer's 1,000 mls @ 15 mls/hr 12/19/24 13:15 12/19/24 13:41 IV 15 mls/hr .Q48H DEVEN Administration PFSH Medical History Wears glasses Depression History of steroid therapy Arthritis Non-smoker Shortness of breath on exertion Pre-eclampsia in second trimester History of miscarriage PCOS (polycystic ovarian syndrome) Pneumonia Kidney stones Carpal tunnel syndrome Anemia Asthma Anxiety Bipolar disorder Home Medications ?Medication ?Instructions ?Recorded ?Last Taken ?Type lamotrigine 25 mg tablet 50 mg PO BID 12/02/23 12/18/24 History sertraline 100 mg tablet 150 mg PO DAILY 12/02/23 12/18/24 History hydroxyzine HCl 25 mg tablet 25 mg PO BID PRN ANTIDEPRESSANT 09/12/24 12/18/24 History medroxyprogesterone 5 mg tablet 5 mg PO QDAY 90 days #90 tabs 10/20/24 12/18/24 Rx albuterol sulfate 90 mcg/actuation 2 puff inhalation 4X/DAY PRN 12/11/24 Unknown History aerosol inhaler shortness of breath or wheezing beclomethasone dipropionate 40 1 inh inhalation BID 12/11/24 Unknown History mcg/actuation HFA breath activated aerosol (Qvar RediHaler) Allergy/AdvReac Type Severity Reaction Status Date / Time cinnamon Allergy Mild Anaphylaxis Verified 12/19/24 13:31 nickel Allergy Mild Rash Verified 12/19/24 13:31 hydrocodone (From [place]) AdvReac Mild Vomiting Verified 12/11/24 09:51 Family History Mother Anemia Anxiety Father Anxiety Arthritis Depression Grandmother Anxiety Diabetes Grandfather Myocardial infarction, Onset Age: 82 Grandfather CVA (cerebral vascular accident) Uncle Suicide attempt Brother Asthma Depression Other Atrial fibrillation Hypertension Surgical History H/O right knee surgery History of appendectomy Social History household members: spouse and children number of children: 1 current occupational status: employed 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 Physical Exam Resp clear to auscultation bilaterally
--- NOTE | 2024-12-19 14:25 | EMB_PTH ---
PATIENT: GUS WRIGHT LOC: [facility] U#:[id number] AGE/SX: 29/F ROOM: RE12/19/[address]: Dr. Yahaira Cardona MD : 1995 BED: DIS: 12/19/2024 SPEC #: [id number] RECD: 12/19/24 18:36 STATUS: JALEESA CHOE #: [id number] QUETA: 12/19/24 14:[address]: Yahaira Cardona DEPT: SURGICAL PATHOLOGY RECD BY: Luther Lewis Tissues: A - Endometrium, NOS Procedures: Surgery Specimen Level IV HEADER OPERATION: Hysteroscopy, D&C PRE-OP DIAGNOSIS: Abnormal uterine bleeding TISSUE SUBMITTED: A- Endometrial bleeding MICROSCOPIC DIAGNOSIS A. Endometrium, curettage: * Fragments of benign columnar and squamous cervical mucosa, inflamed. * Few fragments of inactive endometrium - see note. Note: Most of the specimen consists of cervical tissue. A limited amount of endometrium is present. Clinical correlation is necessary to assess the adequacy of the sampling. MICROSCOPIC DESCRIPTION Slides are reviewed. GROSS DESCRIPTION A. Received in formalin labeled with the patient's name and date of . Designated as endometrial curettings is a 3.4 x 2.5 x 0.4 cm aggregate of dark red clotted blood, mucoid material and flecks of apparent tissue. Entirely submitted in 2 cassettes. [place] 12/20/2024PT:[id number]
--- NOTE | 2024-12-19 15:25 | OP.PCM_ITS ---
Problems Associated Problem List Diagnoses (1) Abnormal uterine bleeding: (2) PCOS (polycystic ovarian syndrome): Multi Select Codes Urinary/Genital Urinary/Genital CPT Codes: 39440 Hysteroscopy, Polypectomy, Symphion Operative Report (Standard) Operative Information Date of Procedure: 12/19/24 Pre-Operative Diagnosis: aub Post-Operative Diagnosis: same Surgery/Procedure Performed: dilation and curettage hysteroscopy home theater experience expert: No Type of Anesthesia: IV Sedation and Local RN Documented Start/Stop Times: Operation Date: 12/19/24 14:25 Case Time Into Pre-Op 12/19/24 13:11 Select all DRAINS/GRAFTS/IMPLANTS that apply: None Estimated Blood Loss: 25 Specimen collected: Yes Description of surgery: Patient was prepped and draped in a normal sterile fashion under MAC anesthesia. A weighted speculum was placed in the vagina and the anterior lip of the cervix was grasped with a single-tooth tenaculum. A paracervical block was placed with 1% lidocaine. Cervix was progressively dilated to allow passage of a 7 mm hysteroscope. The lining was fully visualized and noted to have[ ] . Uterine sounded to [ ] cm. Curettage was performed and [ ] , sent to pathology. All instruments were removed from the vagina and excellent hemostasis was noted. Patient was awoken and taken to recovery in stable condition. Complications Complications: No
--- NOTE | 2024-12-19 15:25 | PCM.OPRPT ---
Problems Associated Problem List Diagnoses (1) Abnormal uterine bleeding: (2) PCOS (polycystic ovarian syndrome): Multi Select Codes Urinary/Genital Urinary/Genital CPT Codes: 71400 Hysteroscopy, Polypectomy, Symphion Operative Report (Standard) Operative Information Date of Procedure: 12/19/24 Pre-Operative Diagnosis: aub Post-Operative Diagnosis: same Surgery/Procedure Performed: dilation and curettage hysteroscopy water leak repairer: No Type of Anesthesia: IV Sedation and Local RN Documented Start/Stop Times: Operation Date: 12/19/24 14:25 Case Time Into Pre-Op 12/19/24 13:11 Anesthesia Start 12/19/24 15:52 Into Room 12/19/24 15:52 Procedure Start 12/19/24 16:27 Procedure End 12/19/24 16:33 Anesthesia End 12/19/24 16:45 Out of Room 12/19/24 16:45 Into Recovery 12/19/24 16:47 Into Phase II Recovery 12/19/24 17:47 Out of Recovery 12/19/24 17:47 Out of Phase II 12/19/24 18:46 Procedure Start Time: 16:27 Procedure Stop Time: 16:33 Select all DRAINS/GRAFTS/IMPLANTS that apply: None Estimated Blood Loss: 25 Specimen collected: Yes Description of specimen(s) removed[place] [facility] [place] of surgery: Patient was prepped and draped in a normal sterile fashion under MAC anesthesia. A weighted speculum was placed in the vagina and the anterior lip of the cervix was grasped with a single-tooth tenaculum. A paracervical block was placed with 1% lidocaine. Cervix was progressively dilated to allow passage of a 7 mm hysteroscope. The lining was fully visualized and noted to have thin lining . Uterine sounded to 8 cm cm. Curettage was performed and tissue removed , sent to pathology. All instruments were removed from the vagina and excellent hemostasis was noted. Patient was awoken and taken to recovery in stable condition. Surgical Findings: nl uterine lining Complications Complications: No
--- NOTE | 2024-12-19 15:26 | PCM.DC ---
Discharge Instructions DC O2, CPAP, BIPAP needs Home O2 Discharge instructions: No Dressing / Incision Discharge Activity: Return to Normal Activity, May Shower and May Take a Tub Bath (after 1 week) May resume sexual activity in: 1-2 weeks Weight Bearing Status: Weight bearing as tolerated Lifting Restrictions: none Dressing / Incision Call your doctor if you observe: Fever of 101 or Higher, Using more than 1 pad per hour, Shortness of breath and Uncontrolled pain Follow Up Care Please Follow Up With: Yahaira Cardona MD When: Call [phone] to schedule appointment. Test Results: Test results from this visit will be discussed in further detail at your follow-up appointment, if applicable. Discharge Plan Admission Attending Provider: Yahaira Cardona Primary Care Provider: Manuel Javier Instructions Print Language: Jordanian Discharge Orders/Prescriptions Prescriptions: No Action medroxyprogesterone 5 mg tablet 5 mg PO QDAY 90 Days Qty: 90 4RF lamotrigine 25 mg tablet 50 mg PO BID Rx Instructions: 50mg in AM; 25mg in evening sertraline 100 mg tablet 150 mg PO DAILY hydroxyzine HCl 25 mg tablet 25 mg PO BID PRN (Reason: ANTIDEPRESSANT) albuterol sulfate 90 mcg/actuation HFA aerosol inhaler 2 puff inhalation 4X/DAY PRN (Reason: shortness of breath or wheezing) Qvar RediHaler 40 mcg/actuation HFA aerosol breath activated 1 inh inhalation BID Referrals / Follow Up: Manuel Javier MD [Primary Care Provider, Family Practice] Disposition Disposition (needs filled in before D/C Order can be placed): Home, Self Care
[2024-12-19] MEDS: Lactated Ringers 500 ML IV (15:40)
[2024-12-19] MEDS: Lidocaine 1% (5 ml sdv) 5 ML Vial IV (15:55)
[2024-12-19] MEDS: Midazolam 2 MG/2 ML Syringe IV (15:55)
[2024-12-19] MEDS: dexMEDEtomidine 200 MCG/2 ML ML 24 MCG IV (16:00)
[2024-12-19] MEDS: Lidocaine 1% (20 ml mdv) 20 ML Vial (16:27)
--- NOTE | 2024-12-19 16:52 | PCM.POST.ANE ---
Anesthesia: Postop Eval I Current Vital Signs Temperature: 97.2 F Pulse Rate: 92 Blood Pressure: 87/61 Respiratory Rate: 16 Pulse Ox: 97 Oxygen Delivery Method: Nasal Cannula Oxygen Flow Rate (L/min): 3 Assessment Airway patent: Yes Spontaneous unlabored respirations: Yes Mental status: Awake and Calm nausea: No Vomiting: No Anesthesia Complication: No Fluid Hydration Crystalloid volume administer (ml): 500 Total IV fluid infused: 500 Progress Note Anesthesia document: Postop Eval 1 completed: Yes
--- NOTE | 2024-12-19 22:34 | POSTOPAN2_ITS ---
Anesthesia Postop Eval I Sum Postop Eval Completion status Anesthesia document: Postop Eval 1 completed: Yes Anesthesia Postop Eval I Summary Anesthesia Postop Eval I Summary: Anesthesia Postop Eval I: Assessment Summary Airway patent Yes 12/19/24 16:53 DATA [email or web address].TDOB Spontaneous unlabored Yes 12/19/24 16:53 DATA [email or web address].TDOB respirations Mental status Awake,Calm 12/19/24 16:53 DATA [email or web address].TDOB nausea No 12/19/24 16:53 DATA [email or web address].TDOB Vomiting No 12/19/24 16:53 DATA [email or web address].TDOB Anesthesia Postop Eval I: Fluid Summary Crystalloid volume administer 500 12/19/24 16:53 DATA [email or web address].TDOB (ml) Colloids volume administered ( ml) Blood Product volume administered (ml) Total IV fluid infused 500 12/19/24 16:53 DATA [email or web address].TDOB Anesthesia Postop Eval I: Summary Notes Anesthesia Complication No 12/19/24 16:53 DATA [email or web address].TDOB Anesthesia Complication Comment: Post-operative progress note Anesthesia: Postop Eval II Evaluation Mental status: Awake and Calm Pain Level: 1 nausea: No Vomiting: No Complications Anesthesia Complication: No
--- NOTE | 2024-12-19 22:34 | PCM.POSTANE2 ---
Anesthesia Postop Eval I Sum Postop Eval Completion status Anesthesia document: Postop Eval 1 completed: Yes Anesthesia Postop Eval I Summary Anesthesia Postop Eval I Summary: Anesthesia Postop Eval I: Assessment Summary Airway patent Yes 12/19/24 16:53 PERINATAL DIRECTOR.TDOB Spontaneous unlabored Yes 12/19/24 16:53 PERINATAL DIRECTOR.TDOB respirations Mental status Awake,Calm 12/19/24 16:53 PERINATAL DIRECTOR.TDOB nausea No 12/19/24 16:53 PERINATAL DIRECTOR.TDOB Vomiting No 12/19/24 16:53 PERINATAL DIRECTOR.TDOB Anesthesia Postop Eval I: Fluid Summary Crystalloid volume administer 500 12/19/24 16:53 PERINATAL DIRECTOR.TDOB (ml) Colloids volume administered ( ml) Blood Product volume administered (ml) Total IV fluid infused 500 12/19/24 16:53 PERINATAL DIRECTOR.TDOB Anesthesia Postop Eval I: Summary Notes Anesthesia Complication No 12/19/24 16:53 PERINATAL DIRECTOR.TDOB Anesthesia Complication Comment: Post-operative progress note Anesthesia: Postop Eval II Evaluation Mental status: Awake and Calm Pain Level: 1 nausea: No Vomiting: No Complications Anesthesia Complication: No
== END 2024-12-19 18:46 | disposition home or self-care (01) ==
LOC: SDC 13:04 → AC 13:05
PROVIDERS: PCP Internal Medicine; Referring Provider Obstetrics & Gynecology; Visit Provider Obstetrics & Gynecology
PROC: 0UDB8ZZ Extraction of Endometrium, Via Natural or Artificial Opening Endoscopic (ICD-10-PCS; CPT 58558; principal; 2024-12-19 14:15)
DX: N93.9 Abnormal uterine and vaginal bleeding, unspecified (principal); E28.2 Polycystic ovarian syndrome; E01.0 Iodine-deficiency related diffuse (endemic) goiter; J45.909 Unspecified asthma, uncomplicated; Z79.899 Other long term (current) drug therapy
CPT/HCPCS: 58558; 00952; 81025; 85027; 86850; 86900; 86901; 88305; J2405